=== PATIENT | female | born 1985 | race African-American/Black ===

== ENCOUNTER 2018-01-17 14:12 | Inpatient (IN) | payer MEDICAID ==
[~2018-01-17] VITALS: Ht 170.2 cm; Wt 65.3 kg
[2018-01-17] MEDS ORDERED: SODIUM CHLORIDE 0.9% 1,000 ML IV ONE ×2 (14:52→19:25)
[2018-01-17] MEDS ORDERED: MORPHINE SULFATE 4 MG/ML CPJ (NOT FOR IM USE) IV STA (14:52)
[2018-01-17] MEDS ORDERED: ONDANSETRON HCL 4MG/2ML INJ IV STA (14:52)
[2018-01-17 16:18] LABS: EOSINOPHILS % 0.4 % (0.0-5.0); HEMATOCRIT. 28.3 % (36.0-48.0); LYMPHOCYTES % 25.8 % (20.0-50.0); MEAN CORPUSCULAR HEMOGLOBIN 27.4 pg (28.0-32.0); MEAN CORPUSCULAR VOLUME 86.3 fL (81.0-99.0); MEAN PLATELET VOLUME 12.1 fl (7.4-10.4); NEUTROPHILS % 69.8 % (40.0-76.0); PLATELET 154 x1000/uL (130-400); RED BLOOD CELL COUNT 3.28 mill/uL (4.2-5.4); RED CELL DISTRIBUTION WIDTH 16.1 % (11.6-14.6)
[2018-01-17 16:24] LABS: CHLORIDE 94 mEq/L (98-107)
[2018-01-17 16:29] LABS: HCG SCREEN NEGATIVE
[2018-01-17 16:34] LABS: D-DIMER 1.68 mg/L FEU (<0.50); INR 1.2; PROTHROMBIN TIME 12.5 sec (9.1-11.1)
[2018-01-17] MEDS ORDERED: SODIUM BICARBONATE 8.4% 1 MEQ/ML 50ML SYR IV ONE (16:45)
[2018-01-17] MEDS ORDERED: ALBUTEROL (0.083%) 2.5MG/3ML NEB HHN ONE (16:45)
[2018-01-17] MEDS ORDERED: SODIUM POLYSTYRENE SULFONATE 15 G/60 ML BOT PO ONE (16:45)
[2018-01-17] MEDS ORDERED: DEXTROSE 50% WATER 50ML SYRINGE IV ONE (16:45)
[2018-01-17] MEDS ORDERED: INSULIN REGULAR (HUMULIN R) 300UNITS/3ML IV ONE (16:45)
[2018-01-17] MEDS ORDERED: CLONIDINE 0.1MG TABLET PO PRN (18:30)
[2018-01-17] MEDS ORDERED: MORPHINE SULFATE 4 MG/ML CPJ (NOT FOR IM USE) IV PRN (18:30)
[2018-01-17] MEDS ORDERED: IPRATROPIUM/ALBUTEROL 0.5-3(2.5)MG/3ML NEB HHN PRN (18:30)
[2018-01-17] MEDS ORDERED: LEVOFLOXACIN 750MG PREMIX 150 ML IV ONE (19:30)
[2018-01-17] MEDS ORDERED: METRONIDAZOLE 500 MG PREMIX 100 ML IV ONE (19:30)
[2018-01-17 20:47] LABS: HEPATITIS B SURFACE ANTIGEN NEGATIVE
[2018-01-17 21:16] LABS: HEPATITIS A AB IGM NEGATIVE (NEGATIVE)
[2018-01-17 22:45] VITALS: BP 132/94
[2018-01-17] MEDS ORDERED: EPOETIN ALFA 10000UNITS/ML VIAL SUBCUT NR (23:30)
[2018-01-18 04:00] VITALS: BP_SYST 124; BP_SYST 128; BP_SYST 146; BP_DIAS 50; BP_DIAS 66; BP_DIAS 88
[2018-01-18] MEDS: FOLIC ACID/VITAMIN B COMP W-C TABLET PO SCH (07:46)
[2018-01-18 08:00] VITALS: BP 105/79
[2018-01-18] MEDS ORDERED: BACITRACIN 15GM TUBE TOP ONE (09:36)
[2018-01-18] MEDS ORDERED: THROMBIN (BOVINE) 5000 UNITS/VIAL TOP ONE (09:36)
[2018-01-18] MEDS ORDERED: HEPARIN SODIUM 1,000 UNIT/1ML VIAL IV ONE (09:36)
[2018-01-18] MEDS ORDERED: GELATIN SPONGE,ABSORBABLE 12-7MM SPONGE ONE (09:36)
[2018-01-18] MEDS ORDERED: LIDOCAINE HCL/PF 1% 10 MG/ML 5ML VIAL ONE (09:37)
[2018-01-18] MEDS ORDERED: SODIUM CHLORIDE 0.9% 1,000 ML ONE (09:37)
[2018-01-18] MEDS ORDERED: BUPIVACAINE HCL/PF 0.5% (5MG/ML) 10ML ONE (09:37)
[2018-01-18] MEDS ORDERED: SODIUM CHLORIDE 0.9% 250 ML IV ONE (09:37)
[2018-01-18] MEDS ORDERED: BACITRACIN 50,000 UNITS/VIAL ONE (09:37)
[2018-01-18] MEDS ORDERED: NORMAL SALINE 0.9% 10 ML SYR ONE (09:37)
[2018-01-18 09:41] LABS: BASOPHILS % 0.5 % (0.0-2.0); EOSINOPHILS % 0.1 % (0.0-5.0); HEMATOCRIT. 23.9 % (36.0-48.0); HEMOGLOBIN. 7.6 g/dL (12.0-16.0); LYMPHOCYTES % 23.9 % (20.0-50.0); MEAN CORPUSCULAR HEMOGLOBIN 27.5 pg (28.0-32.0); MEAN CORPUSCULAR VOLUME 86.6 fL (81.0-99.0); MEAN PLATELET VOLUME 12.1 fl (7.4-10.4); NEUTROPHILS % 70.5 % (40.0-76.0); RED BLOOD CELL COUNT 2.76 mill/uL (4.2-5.4); RED CELL DISTRIBUTION WIDTH 15.9 % (11.6-14.6)
[2018-01-18 09:50] LABS: PLATELET 110 x1000/uL (130-400)
[2018-01-18] MEDS ORDERED: HYDROMORPHONE HCL/PF 2MG/ML CPJ IM PRN (11:30)
[2018-01-18] MEDS: HYDROMORPHONE HCL/PF 2MG/ML CPJ IV PRN (12:33)
[2018-01-18] MEDS: ONDANSETRON HCL 4MG/2ML INJ IV PRN (13:25)
[2018-01-18] MEDS ORDERED: NITROGLYCERIN OINT 1GM/INCH UDPKT TD SCH (14:00)
[2018-01-18] MEDS ORDERED: GENTAMICIN 120MG PREMIX 100 ML IV NR (15:00)
[2018-01-18 16:00] VITALS: BP 108/78
[2018-01-18 17:19] LABS: CREATINE KINASE MB FRACTION 1.1 ng/mL (0.5-3.6)
[2018-01-18] MEDS ORDERED: INFLUENZA VIRUS VACCINE(AFLURIA) 0.5ML SYR IM ONE (17:45)
[2018-01-18 20:00] VITALS: BP 119/89
[2018-01-18] MEDS: CARVEDILOL 3.125 MG TABLET PO SCH (21:00)
[2018-01-18] MEDS ORDERED: METOPROLOL TARTRATE 25MG TABLET PO SCH (21:00)
[2018-01-18] MEDS ORDERED: EPOETIN ALFA 4000UNITS/ML VIAL SUBCUT NR (21:00)
[2018-01-19] VITALS (18 sets, daily range): BP systolic 91–141; BP diastolic 43–86
[2018-01-19] MEDS: ONDANSETRON HCL 4MG/2ML INJ IV PRN ×3 (01:02→15:22)
[2018-01-19 02:10] LABS: CREATINE KINASE 129 IU/L (26-192); CREATINE KINASE MB FRACTION < 1.0 ng/mL (0.5-3.6)
[2018-01-19] MEDS: HYDROMORPHONE HCL/PF 2MG/ML CPJ IV PRN ×4 (02:32→20:49)
[2018-01-19 07:51] LABS: CHLORIDE 94 mEq/L (98-107)
[2018-01-19 07:52] LABS: BASOPHILS % 0.2 % (0.0-2.0); HEMATOCRIT. 22.9 % (36.0-48.0); HEMOGLOBIN. 7.4 g/dL (12.0-16.0); LYMPHOCYTES % 14.4 % (20.0-50.0); MEAN CORPUSCULAR HEMOGLOBIN 27.5 pg (28.0-32.0); MEAN CORPUSCULAR VOLUME 85.7 fL (81.0-99.0); MEAN PLATELET VOLUME 11.9 fl (7.4-10.4); MONOCYTES % 6.1 % (2.0-8.0); NEUTROPHILS % 79.3 % (40.0-76.0); PLATELET 107 x1000/uL (130-400); RED BLOOD CELL COUNT 2.67 mill/uL (4.2-5.4); RED CELL DISTRIBUTION WIDTH 16.2 % (11.6-14.6)
[2018-01-19 08:04] LABS: CREATINE KINASE 134 IU/L (26-192)
[2018-01-19 08:06] LABS: CREATINE KINASE MB FRACTION < 1.0 ng/mL (0.5-3.6)
[2018-01-19] MEDS: FOLIC ACID/VITAMIN B COMP W-C TABLET PO SCH ×2 (09:09→09:22)
[2018-01-19] MEDS: CARVEDILOL 3.125 MG TABLET PO SCH ×2 (09:23→20:52)
[2018-01-19] MEDS ORDERED: DEXTROSE 50% WATER 50ML SYRINGE IV NR (10:00)
[2018-01-19] MEDS ORDERED: INSULIN REGULAR (HUMULIN R) UD 100 UNITS/ML SYR IV NR (10:00)
[2018-01-19] MEDS ORDERED: SODIUM BICARBONATE 8.4% 1 MEQ/ML 50ML SYR IV NR (10:00)
[2018-01-19] MEDS ORDERED: SODIUM POLYSTYRENE SULFONATE 15 G/60 ML BOT PO NR (10:00)
[2018-01-19] MEDS ORDERED: CALCIUM GLUCONATE 1,000 MG in DEXTROSE 5% WATER 50 ML IV NR (10:00)
[2018-01-19] MEDS ORDERED: ALBUTEROL (0.083%) 2.5MG/3ML NEB HHN NR (10:00)
[2018-01-19] MEDS ORDERED: BISACODYL 5MG TABLET PO PRN (11:45)
[2018-01-19] MEDS: DOCUSATE SODIUM 250MG CAPSULE PO SCH ×2 (12:53→16:15)
[2018-01-19] MEDS: BISACODYL 10MG SUPP PR SCH (17:00)
[2018-01-19] MEDS ORDERED: BISACODYL 5MG TABLET PO SCH (17:00)
[2018-01-19 17:23] LABS: HEMATOCRIT 20.4 % (36.0-48.0); HEMOGLOBIN 6.4 g/dL (12.0-16.0)
[2018-01-19] MEDS ORDERED: BISACODYL 10MG SUPP PR PRN (19:00)
[2018-01-19] MEDS: IRON SUCROSE COMPLEX 100 MG/5 ML ML IV SCH (19:10)
[2018-01-19] MEDS: DIPHENHYDRAMINE 50MG/ML VIAL IV PRN (19:18)
[2018-01-19] MEDS ORDERED: EPOETIN ALFA 4000UNITS/ML VIAL SUBCUT SCH (21:00)
[2018-01-20] VITALS (12 sets, daily range): BP systolic 92–135; BP diastolic 55–88
[2018-01-20] MEDS: HYDROMORPHONE HCL/PF 2MG/ML CPJ IV PRN ×3 (00:03→20:12)
[2018-01-20 06:44] LABS: HEMATOCRIT 28.2 % (36.0-48.0); HEMOGLOBIN 9.2 g/dL (12.0-16.0)
[2018-01-20] MEDS: DOCUSATE SODIUM 250MG CAPSULE PO SCH ×3 (09:00→17:00)
[2018-01-20] MEDS: ONDANSETRON HCL 4MG/2ML INJ IV PRN (09:09)
[2018-01-20] MEDS: DIPHENHYDRAMINE 50MG/ML VIAL IV PRN (09:10)
[2018-01-20] MEDS: BISACODYL 10MG SUPP PR SCH ×2 (09:10→17:00)
[2018-01-20] MEDS: CARVEDILOL 6.25 MG TABLET PO SCH ×2 (09:17→20:12)
[2018-01-20] MEDS: IRON SUCROSE COMPLEX 100 MG/5 ML ML IV SCH (09:17)
[2018-01-20 13:00] LABS: CHLORIDE 101 mEq/L (98-107)
[2018-01-20 13:03] LABS: BASOPHILS % 0.3 % (0.0-2.0); EOSINOPHILS % 0.2 % (0.0-5.0); HEMATOCRIT. 32.2 % (36.0-48.0); HEMOGLOBIN. 10.4 g/dL (12.0-16.0); LYMPHOCYTES % 9.7 % (20.0-50.0); MEAN CORPUSCULAR HEMOGLOBIN 27.8 pg (28.0-32.0); MEAN CORPUSCULAR VOLUME 86.2 fL (81.0-99.0); MEAN PLATELET VOLUME 11.3 fl (7.4-10.4); MONOCYTES % 3.6 % (2.0-8.0); NEUTROPHILS % 86.2 % (40.0-76.0); PLATELET 95 x1000/uL (130-400); RED BLOOD CELL COUNT 3.74 mill/uL (4.2-5.4); RED CELL DISTRIBUTION WIDTH 15.8 % (11.6-14.6)
[2018-01-21] VITALS (13 sets, daily range): BP systolic 97–143; BP diastolic 49–91
[2018-01-21] MEDS: HYDROMORPHONE HCL/PF 2MG/ML CPJ IV PRN ×3 (01:56→20:18)
[2018-01-21] MEDS: IRON SUCROSE COMPLEX 100 MG/5 ML ML IV SCH (08:07)
[2018-01-21] MEDS: BENAZEPRIL 5MG TABLET PO SCH (08:43)
[2018-01-21] MEDS: CARVEDILOL 6.25 MG TABLET PO SCH ×2 (08:43→21:25)
[2018-01-21] MEDS: DOCUSATE SODIUM 250MG CAPSULE PO SCH ×3 (08:44→18:42)
[2018-01-21] MEDS: BISACODYL 10MG SUPP PR SCH ×2 (08:44→18:42)
[2018-01-21] MEDS: FOLIC ACID/VITAMIN B COMP W-C TABLET PO SCH (08:45)
[2018-01-21] MEDS ORDERED: GELATIN SPONGE,ABSORBABLE 12-7MM SPONGE ONE (10:50)
[2018-01-21] MEDS ORDERED: BACITRACIN 15GM TUBE TOP ONE (10:51)
[2018-01-21] MEDS ORDERED: THROMBIN (BOVINE) 5000 UNITS/VIAL TOP ONE (10:51)
[2018-01-21] MEDS ORDERED: BUPIVACAINE HCL/PF 0.5% (5MG/ML) 10ML ONE (10:52)
[2018-01-21] MEDS ORDERED: SODIUM CHLORIDE 0.9% 10ML VIAL ONE (10:52)
[2018-01-21] MEDS ORDERED: HEPARIN SODIUM 1,000 UNIT/1ML VIAL IV ONE (10:52)
[2018-01-21] MEDS ORDERED: LIDOCAINE HCL/PF 1% 10 MG/ML 5ML VIAL ONE (10:53)
[2018-01-21] MEDS ORDERED: BACITRACIN 50,000 UNITS/VIAL ONE (10:54)
[2018-01-21 13:06] LABS: HIV SCREEN 4G Non Reactive (Non Reactive)
[2018-01-21] MEDS ORDERED: EPHEDRINE SULFATE 50MG/ML VIAL ONE (13:09)
[2018-01-21] MEDS ORDERED: PHENYLEPHRINE HCL 10 MG/ML 1ML (IV VIAL) IV ONE (13:10)
[2018-01-21] MEDS ORDERED: EPINEPHRINE 1:1000 1 MG/ML AMP ONE (13:10)
[2018-01-21] MEDS ORDERED: FENTANYL CITRATE/PF 50MCG/ML 2ML VIAL ONE (13:13)
[2018-01-21] MEDS ORDERED: SUCCINYLCHOLINE CHLORIDE 200MG/10ML IV ONE (13:13)
[2018-01-21] MEDS ORDERED: PROPOFOL 10MG/ML 100ML 100 ML IV ONE (13:14)
[2018-01-21] MEDS ORDERED: MIDAZOLAM HCL 2 MG/2 ML VIAL ONE (13:15)
[2018-01-21] MEDS ORDERED: HEPARIN 5000 UNITS/ML VIAL ONE (14:04)
[2018-01-21] MEDS ORDERED: CLINDAMYCIN 600MG PREMIX 50 ML IV SCH (14:05)
[2018-01-21] MEDS ORDERED: CLINDAMYCIN 600 MG in DEXTROSE 5% WATER 50 ML IV SCH (14:09)
[2018-01-21] MEDS ORDERED: FENTANYL CITRATE/PF 50MCG/ML 2ML VIAL IV PRN (14:45)
[2018-01-21] MEDS ORDERED: ONDANSETRON HCL 4MG/2ML INJ IV PRN (14:45)
[2018-01-21] MEDS ORDERED: MEPERIDINE HCL/PF 25MG/ML CPJ IV PRN (14:45)
[2018-01-21] MEDS ORDERED: HYDROMORPHONE HCL/PF 2MG/ML CPJ IV PRN (14:45)
[2018-01-21] MEDS ORDERED: HEPARIN 1000 UNITS/ML 10ML ONE (15:21)
[2018-01-21] MEDS ORDERED: EPOETIN ALFA 4000UNITS/ML VIAL SUBCUT SCH (21:00)
[2018-01-21] MEDS ORDERED: EPOETIN ALFA 10000UNITS/ML VIAL SUBCUT ONE (21:00)
[2018-01-22] VITALS (17 sets, daily range): BP systolic 89–139; BP diastolic 56–109
[2018-01-22] MEDS: HYDROMORPHONE HCL/PF 2MG/ML CPJ IV PRN ×4 (02:39→20:27)
[2018-01-22 07:42] LABS: BASOPHILS % 0.4 % (0.0-2.0); EOSINOPHILS % 0.9 % (0.0-5.0); HEMATOCRIT. 31.6 % (36.0-48.0); HEMOGLOBIN. 10.1 g/dL (12.0-16.0); LYMPHOCYTES % 24.4 % (20.0-50.0); MEAN CORPUSCULAR HEMOGLOBIN 27.5 pg (28.0-32.0); MEAN CORPUSCULAR VOLUME 86.1 fL (81.0-99.0); MEAN PLATELET VOLUME 11.7 fl (7.4-10.4); MONOCYTES % 6.6 % (2.0-8.0); NEUTROPHILS % 67.7 % (40.0-76.0); PLATELET 81 x1000/uL (130-400); RED BLOOD CELL COUNT 3.67 mill/uL (4.2-5.4)
[2018-01-22] MEDS ORDERED: IBUPROFEN 200MG TABLET PO PRN (08:30)
[2018-01-22] MEDS: DOCUSATE SODIUM 250MG CAPSULE PO SCH ×3 (08:31→16:25)
[2018-01-22] MEDS: BISACODYL 10MG SUPP PR SCH ×2 (08:37→17:09)
[2018-01-22] MEDS: CARVEDILOL 6.25 MG TABLET PO SCH ×2 (08:37→21:00)
[2018-01-22] MEDS: IRON SUCROSE COMPLEX 100 MG/5 ML ML IV SCH (08:37)
[2018-01-22] MEDS: BENAZEPRIL 5MG TABLET PO SCH (08:38)
[2018-01-22] MEDS: FOLIC ACID/VITAMIN B COMP W-C TABLET PO SCH (08:38)
[2018-01-22] MEDS ORDERED: HYDROCODONE/ACETAMINOPHEN 10/325MG TABLET PO PRN (11:15)
[2018-01-23] VITALS (8 sets, daily range): BP systolic 109–153; BP diastolic 55–112
[2018-01-23] MEDS: HYDROMORPHONE HCL/PF 2MG/ML CPJ IV PRN ×2 (02:46→10:16)
[2018-01-23 06:59] LABS: BASOPHILS % 0.3 % (0.0-2.0); EOSINOPHILS % 1.2 % (0.0-5.0); HEMATOCRIT. 28.8 % (36.0-48.0); HEMOGLOBIN. 9.5 g/dL (12.0-16.0); LYMPHOCYTES % 25.5 % (20.0-50.0); MEAN CORPUSCULAR HEMOGLOBIN 28.3 pg (28.0-32.0); MEAN CORPUSCULAR VOLUME 85.9 fL (81.0-99.0); MEAN PLATELET VOLUME 10.3 fl (7.4-10.4); MONOCYTES % 5.9 % (2.0-8.0); NEUTROPHILS % 67.1 % (40.0-76.0); PLATELET 68 x1000/uL (130-400); RED BLOOD CELL COUNT 3.35 mill/uL (4.2-5.4); RED CELL DISTRIBUTION WIDTH 16.6 % (11.6-14.6)
[2018-01-23] MEDS: BENAZEPRIL 5MG TABLET PO SCH (09:00)
[2018-01-23] MEDS ORDERED: CARVEDILOL 12.5MG TABLET PO SCH (09:00)
[2018-01-23] MEDS: FOLIC ACID/VITAMIN B COMP W-C TABLET PO SCH (10:13)
[2018-01-23] MEDS: BISACODYL 10MG SUPP PR SCH ×2 (10:13→16:18)
[2018-01-23] MEDS: DOCUSATE SODIUM 250MG CAPSULE PO SCH ×3 (10:14→16:18)
[2018-01-23] MEDS: IRON SUCROSE COMPLEX 100 MG/5 ML ML IV SCH (10:14)
[2018-01-23] MEDS ORDERED: EPOETIN ALFA 4000UNITS/ML VIAL SUBCUT SCH (21:00)
== END 2018-01-23 17:00 | disposition left against medical advice (07) | DRG 182 ==
LOC: ER 14:12 → 6WST 18:42 → EDBEDREQ 18:45 → EDBEDREQTM 18:45 → ENRESERV 21:27 → 3WST 01-19 10:10
PROVIDERS: ADMIT Internal Medicine; ATTEND Internal Medicine
PROC: 5A1D70Z Performance of Urinary Filtration, Intermittent, Less than 6 Hours Per Day (ICD-10-PCS; principal; 2018-01-17)
PROC: 30233N1 Transfusion of Nonautologous Red Blood Cells into Peripheral Vein, Percutaneous Approach (ICD-10-PCS; 2018-01-19)
PROC: 5A1D70Z Performance of Urinary Filtration, Intermittent, Less than 6 Hours Per Day (ICD-10-PCS; 2018-01-19)
PROC: 03160KD Bypass Left Axillary Artery to Upper Arm Vein with Nonautologous Tissue Substitute, Open Approach (ICD-10-PCS; 2018-01-21)
PROC: 5A1D70Z Performance of Urinary Filtration, Intermittent, Less than 6 Hours Per Day (ICD-10-PCS; 2018-01-21)
PROC: 5A1D70Z Performance of Urinary Filtration, Intermittent, Less than 6 Hours Per Day (ICD-10-PCS; 2018-01-23)
DX: T82.590A Other mechanical complication of surgically created arteriovenous fistula, initial encounter (principal); I13.2 Hypertensive heart and chronic kidney disease with heart failure and with stage 5 chronic kidney disease, or end stage renal disease; D69.6 Thrombocytopenia, unspecified; E44.0 Moderate protein-calorie malnutrition; E87.8 Other disorders of electrolyte and fluid balance, not elsewhere classified; I95.9 Hypotension, unspecified; E87.5 Hyperkalemia; E87.1 Hypo-osmolality and hyponatremia; E86.0 Dehydration; I27.20 Pulmonary hypertension, unspecified; N18.6 End stage renal disease; R18.8 Other ascites; I07.1 Rheumatic tricuspid insufficiency; F14.90 Cocaine use, unspecified, uncomplicated; R16.0 Hepatomegaly, not elsewhere classified; K81.9 Cholecystitis, unspecified; I42.9 Cardiomyopathy, unspecified; I50.23 Acute on chronic systolic (congestive) heart failure; Y84.1 Kidney dialysis as the cause of abnormal reaction of the patient, or of later complication, without mention of misadventure at the time of the procedure; D63.8 Anemia in other chronic diseases classified elsewhere; F10.21 Alcohol dependence, in remission; J44.9 Chronic obstructive pulmonary disease, unspecified; K59.00 Constipation, unspecified; I31.3 Pericardial effusion (noninflammatory); Z53.21 Procedure and treatment not carried out due to patient leaving prior to being seen by health care provider; Z88.0 Allergy status to penicillin; Z99.2 Dependence on renal dialysis; Z68.22 Body mass index [BMI] 22.0-22.9, adult; Z91.19 Patient's noncompliance with other medical treatment and regimen; Y92.89 Other specified places as the place of occurrence of the external cause
CPT/HCPCS: 36415; 71045; 74176; 76705; 78227; 78580; 80048; 80076; 80170; 82248; 82270; 82550; 82553; 82962; 83605; 83880; 84132; 84484; 84703; 85014; 85018; 85379; 86705; 86706; 86709; 86803; 86850; 86900; 86920; 87340; 87389; 90686; 93005; 93306; 93970; 94640; 94644; 96374; 96375; 99285; A4216; A9537; C1768; J0330; J0610; J0885; J1170; J1200; J1580; J1644; J1815; J1956; J2250; J2270; J2370; J2405; J2704; J3010; J3490; J7030; J7050; J7060; J7611; J7620; P9016; A4315

== ENCOUNTER 2018-02-12 12:54 | Inpatient (IN) | payer MEDICAID ==
[~2018-02-12] VITALS: Ht 167.6 cm; Wt 68.0 kg
[2018-02-12] MEDS: ASPIRIN 325MG TABLET PO ONE ×2 (13:30→14:21)
[2018-02-12 15:16] LABS: BASOPHILS % 0.4 % (0.0-2.0); CHLORIDE 99 mEq/L (98-107); EOSINOPHILS % 0.4 % (0.0-5.0); HEMATOCRIT. 23.4 % (36.0-48.0); HEMOGLOBIN. 7.5 g/dL (12.0-16.0); LYMPHOCYTES % 16.5 % (20.0-50.0); MEAN CORPUSCULAR HEMOGLOBIN 26.9 pg (28.0-32.0); MEAN PLATELET VOLUME 10.9 fl (7.4-10.4); NEUTROPHILS % 78.7 % (40.0-76.0); PLATELET 106 x1000/uL (130-400); RED BLOOD CELL COUNT 2.79 mill/uL (4.2-5.4); RED CELL DISTRIBUTION WIDTH 17.4 % (11.6-14.6)
[2018-02-12] MEDS ORDERED: HEPARIN 5000 UNITS/ML VIAL IV PRN ×2 (15:45)
[2018-02-12] MEDS ORDERED: HEPARIN 5000 UNITS/ML VIAL IV SCH (15:45)
[2018-02-12] MEDS ORDERED: HEPARIN 25,000 UNITS PREMIX 500 ML IV PRN (15:45)
[2018-02-12 17:30] LABS: HCG SCREEN NEGATIVE
[2018-02-12] MEDS: ONDANSETRON HCL 4MG/2ML INJ IV ONE (18:00)
[2018-02-12 18:02] LABS: INR 1.2; PARTIAL THROMBOPLASTIN TIME 34.1 sec (23.4-31.0); PROTHROMBIN TIME 12.4 sec (9.1-11.1)
[2018-02-12] MEDS ORDERED: HEPARIN BOLUS PRN aPTT <30 IV (18:30)
[2018-02-12] MEDS ORDERED: HEPARIN BOLUS PRN aPTT 30-44 IV (18:30)
[2018-02-12] MEDS ORDERED: HEPARIN 60 UNITS/KG BOLUS IV NR ×2 (18:36→19:00)
[2018-02-12 19:24] LABS: CLARITY URINE CLOUDY (CLEAR); COLOR URINE YELLOW (YELLOW); KETONES URINE NEGATIVE (NEGATIVE); LEUKOCYTE ESTERASE URINE 2+ (NEGATIVE); NITRITE URINE NEGATIVE (NEGATIVE); OCCULT BLOOD URINE 3+ (NEGATIVE); PH URINE >=9.0 (4.5-8.0); PROTEIN URINE 3+ (NEGATIVE); SPECIFIC GRAVITY URINE 1.012 (1.005-1.030)
[2018-02-12 23:00] VITALS: BP 115/75
[2018-02-13] VITALS (8 sets, daily range): BP systolic 95–115; BP diastolic 53–75
[2018-02-13] MEDS ORDERED: LEVOFLOXACIN 500MG PREMIX 100 ML IV SCH ×2 (00:15→01:00)
[2018-02-13] MEDS ORDERED: HYDROCODONE/ACETAMINOPHEN 5/325MG TABLET PO PRN (00:15)
[2018-02-13] MEDS ORDERED: ACETAMINOPHEN 325MG TABLET PO PRN (00:15)
[2018-02-13] MEDS: HYDROMORPHONE HCL/PF 2MG/ML CPJ IV PRN ×3 (01:18→22:21)
[2018-02-13] MEDS: ONDANSETRON HCL 4MG/2ML INJ IV PRN ×2 (01:19→10:25)
[2018-02-13] MEDS: HEPARIN 25,000 UNITS PREMIX 500 ML IV SCH ×2 (02:28→21:49)
[2018-02-13] MEDS: AMLODIPINE 10MG TABLET PO SCH (09:00)
[2018-02-13 09:04] LABS: CREATINE KINASE 43 IU/L (26-192)
[2018-02-13] MEDS: ASPIRIN 81MG EC TABLET PO SCH (09:04)
[2018-02-13 09:05] LABS: CREATINE KINASE MB FRACTION < 1.0 ng/mL (0.5-3.6)
[2018-02-13] MEDS ORDERED: IRON SUCROSE COMPLEX 100 MG/5 ML ML IV NR (13:15)
[2018-02-13 16:49] LABS: CREATINE KINASE 42 IU/L (26-192)
[2018-02-13 16:50] LABS: CREATINE KINASE MB FRACTION < 1.0 ng/mL (0.5-3.6)
[2018-02-13] MEDS ORDERED: EPOETIN ALFA 4000UNITS/ML VIAL SUBCUT SCH (21:00)
[2018-02-14 03:21] LABS: BASOPHILS % 0.3 % (0.0-2.0); EOSINOPHILS % 0.5 % (0.0-5.0); MEAN CORPUSCULAR HEMOGLOBIN 26.9 pg (28.0-32.0); MEAN CORPUSCULAR VOLUME 82.8 fL (81.0-99.0); MEAN PLATELET VOLUME 11.1 fl (7.4-10.4); MONOCYTES % 4.5 % (2.0-8.0); NEUTROPHILS % 77.7 % (40.0-76.0); PLATELET 95 x1000/uL (130-400); RED BLOOD CELL COUNT 2.51 mill/uL (4.2-5.4); RED CELL DISTRIBUTION WIDTH 17.6 % (11.6-14.6)
[2018-02-14 03:35] LABS: HEMOGLOBIN. 6.8 g/dL (12.0-16.0)
[2018-02-14 03:36] LABS: HEMATOCRIT. 20.8 % (36.0-48.0)
[2018-02-14 03:45] LABS: CHLORIDE 101 mEq/L (98-107)
[2018-02-14 04:29] VITALS: BP 103/56
[2018-02-14 08:00] VITALS: BP 112/73
[2018-02-14] MEDS: HYDROMORPHONE HCL/PF 2MG/ML CPJ IV PRN ×3 (08:33→22:36)
[2018-02-14] MEDS: ASPIRIN 81MG EC TABLET PO SCH (09:58)
[2018-02-14] MEDS: AMLODIPINE 10MG TABLET PO SCH (09:58)
[2018-02-14] MEDS: IRON SUCROSE COMPLEX 100 MG/5 ML ML IV SCH (11:07)
[2018-02-14 12:00] VITALS: BP 114/74
[2018-02-14 16:00] VITALS: BP 120/78
[2018-02-14 17:26] LABS: TOTAL IRON BINDING CAPACITY 218 ug/dL (250-450)
[2018-02-14 17:52] LABS: VITAMIN B12 SERUM 1158 pg/mL (211-911)
[2018-02-14] MEDS: LEVOFLOXACIN 250MG PREMIX 50 ML IV SCH (19:12)
[2018-02-14 20:00] VITALS: BP 112/80
[2018-02-15] VITALS (7 sets, daily range): BP systolic 103–115; BP diastolic 65–81
[2018-02-15] MEDS: HYDROMORPHONE HCL/PF 2MG/ML CPJ IV PRN ×2 (04:57→20:46)
[2018-02-15 06:01] LABS: BASOPHILS % 0.4 % (0.0-2.0); EOSINOPHILS % 0.2 % (0.0-5.0); HEMATOCRIT. 21.5 % (36.0-48.0); LYMPHOCYTES % 16.4 % (20.0-50.0); MEAN CORPUSCULAR HEMOGLOBIN 27.1 pg (28.0-32.0); MEAN CORPUSCULAR VOLUME 83.1 fL (81.0-99.0); MONOCYTES % 4.1 % (2.0-8.0); NEUTROPHILS % 78.9 % (40.0-76.0); PLATELET 116 x1000/uL (130-400); RED BLOOD CELL COUNT 2.58 mill/uL (4.2-5.4); RED CELL DISTRIBUTION WIDTH 17.9 % (11.6-14.6)
[2018-02-15] MEDS: ONDANSETRON HCL 4MG/2ML INJ IV PRN (09:01)
[2018-02-15 13:07] LABS: *AMPHETAMINES SCREEN URINE NEGATIVE (NEGATIVE); *BARBITURATES SCREEN URINE NEGATIVE (NEGATIVE); *BENZODIAZEPINES SCREEN URINE NEGATIVE (NEGATIVE); *COCAINE SCREEN URINE NEGATIVE (NEGATIVE); METHADONE URINE SCREEN NEGATIVE (NEGATIVE); OPIATES URINE SCREEN NEGATIVE (NEGATIVE)
[2018-02-15 13:08] LABS: CANNABINOID URINE SCREEN NEGATIVE (NEGATIVE); PHENCYCLIDINE URINE SCREEN NEGATIVE (NEGATIVE)
[2018-02-15] MEDS: IRON SUCROSE COMPLEX 100 MG/5 ML ML IV SCH (14:46)
[2018-02-15] MEDS: CARVEDILOL 6.25 MG TABLET PO SCH ×2 (14:46→20:44)
[2018-02-15] MEDS: PANTOPRAZOLE SODIUM 40 MG/VIAL IV SCH (14:46)
[2018-02-15] MEDS: LOSARTAN POTASSIUM 25 MG TABLET PO SCH (14:46)
[2018-02-15] MEDS: ASPIRIN 81MG EC TABLET PO SCH (14:46)
[2018-02-15] MEDS ORDERED: VANCOMYCIN 1 G PREMIX 200 ML IV SCH (18:00)
[2018-02-15] MEDS ORDERED: VANCOMYCIN 1 G PREMIX 200 ML IV NR (20:00)
[2018-02-16] VITALS: BP 98/63
[2018-02-16] MEDS: HYDROMORPHONE HCL/PF 2MG/ML CPJ IV PRN ×4 (02:59→21:13)
[2018-02-16 04:00] VITALS: BP 107/63
[2018-02-16] MEDS ORDERED: LIDOCAINE HCL 1% 20ML VIAL (Pyxis) INJ ONE (07:02)
[2018-02-16 08:00] VITALS: BP 113/66
[2018-02-16] MEDS: LOSARTAN POTASSIUM 25 MG TABLET PO SCH (09:00)
[2018-02-16] MEDS: CARVEDILOL 12.5MG TABLET PO SCH ×2 (09:00→21:00)
[2018-02-16] MEDS: PANTOPRAZOLE SODIUM 40 MG/VIAL IV SCH (09:57)
[2018-02-16] MEDS: IRON SUCROSE COMPLEX 100 MG/5 ML ML IV SCH (09:57)
[2018-02-16] MEDS: ASPIRIN 81MG EC TABLET PO SCH (10:10)
[2018-02-16] MEDS ORDERED: VANCOMYCIN 1500MG in DEXTROSE 5% WATER 250ML IV SCH (11:00)
[2018-02-16 12:00] VITALS: BP 100/53
[2018-02-16 16:00] VITALS: BP 97/54
[2018-02-16 20:00] VITALS: BP 103/66
[2018-02-16] MEDS: LEVOFLOXACIN 250MG PREMIX 50 ML IV SCH (21:12)
[2018-02-17] VITALS: BP 101/68
[2018-02-17] MEDS: HYDROMORPHONE HCL/PF 2MG/ML CPJ IV PRN ×2 (01:11→05:59)
[2018-02-17 04:00] VITALS: BP 108/71
[2018-02-17 07:42] LABS: BASOPHILS % 0.3 % (0.0-2.0); EOSINOPHILS % 0.8 % (0.0-5.0); HEMATOCRIT. 26.7 % (36.0-48.0); HEMOGLOBIN. 8.7 g/dL (12.0-16.0); LYMPHOCYTES % 21.3 % (20.0-50.0); MEAN CORPUSCULAR HEMOGLOBIN 27.3 pg (28.0-32.0); MEAN CORPUSCULAR VOLUME 84.1 fL (81.0-99.0); MEAN PLATELET VOLUME 11.1 fl (7.4-10.4); MONOCYTES % 4.1 % (2.0-8.0); NEUTROPHILS % 73.5 % (40.0-76.0); PLATELET 116 x1000/uL (130-400); RED BLOOD CELL COUNT 3.18 mill/uL (4.2-5.4); RED CELL DISTRIBUTION WIDTH 18.3 % (11.6-14.6)
[2018-02-17 08:00] VITALS: BP 107/71
[2018-02-17] MEDS: LOSARTAN POTASSIUM 25 MG TABLET PO SCH (09:00)
[2018-02-17] MEDS: CARVEDILOL 12.5MG TABLET PO SCH (09:00)
[2018-02-17] MEDS: ONDANSETRON HCL 4MG/2ML INJ IV PRN (09:03)
[2018-02-17] MEDS: PANTOPRAZOLE SODIUM 40 MG/VIAL IV SCH (09:03)
[2018-02-17] MEDS: ASPIRIN 81MG EC TABLET PO SCH (09:04)
[2018-02-17 10:00] VITALS: BP 107/71
== END 2018-02-17 15:00 | disposition home or self-care (01) | DRG 721 ==
LOC: ER 12:54 → EDBEDREQ 15:41 → EDBEDREQTM 18:15 → 7WST 18:28 → EDBEDREQ 18:29 → ENRESERV 20:23
PROVIDERS: ADMIT Hospitalist; ATTEND Hospitalist
PROC: 5A1D70Z Performance of Urinary Filtration, Intermittent, Less than 6 Hours Per Day (ICD-10-PCS; 2018-02-13)
PROC: 30233N1 Transfusion of Nonautologous Red Blood Cells into Peripheral Vein, Percutaneous Approach (ICD-10-PCS; 2018-02-15)
PROC: 5A1D70Z Performance of Urinary Filtration, Intermittent, Less than 6 Hours Per Day (ICD-10-PCS; 2018-02-15)
PROC: 0JPT0XZ Removal of Tunneled Vascular Access Device from Trunk Subcutaneous Tissue and Fascia, Open Approach (ICD-10-PCS; principal; 2018-02-16)
PROC: 02PYX3Z Removal of Infusion Device from Great Vessel, External Approach (ICD-10-PCS; 2018-02-16)
PROC: 5A1D70Z Performance of Urinary Filtration, Intermittent, Less than 6 Hours Per Day (ICD-10-PCS; 2018-02-17)
DX: T80.211A Bloodstream infection due to central venous catheter, initial encounter (principal); A41.81 Sepsis due to Enterococcus; I13.2 Hypertensive heart and chronic kidney disease with heart failure and with stage 5 chronic kidney disease, or end stage renal disease; E43 Unspecified severe protein-calorie malnutrition; D69.6 Thrombocytopenia, unspecified; I27.20 Pulmonary hypertension, unspecified; I07.1 Rheumatic tricuspid insufficiency; I42.0 Dilated cardiomyopathy; N18.6 End stage renal disease; I50.33 Acute on chronic diastolic (congestive) heart failure; I48.92 Unspecified atrial flutter; N39.0 Urinary tract infection, site not specified; D63.1 Anemia in chronic kidney disease; G89.29 Other chronic pain; Z82.49 Family history of ischemic heart disease and other diseases of the circulatory system; Z86.74 Personal history of sudden cardiac arrest; Z87.891 Personal history of nicotine dependence; Z91.19 Patient's noncompliance with other medical treatment and regimen; Z99.2 Dependence on renal dialysis; Z88.0 Allergy status to penicillin; Z87.01 Personal history of pneumonia (recurrent); Z68.24 Body mass index [BMI] 24.0-24.9, adult
CPT/HCPCS: 36415; 36589; 71045; 80048; 80202; 80305; 81025; 82550; 82553; 82607; 83540; 83550; 83880; 84484; 84703; 85044; 86850; 86900; 86920; 87070; 87077; 87186; 93005; 99291; C9113; J0885; J1170; J1644; J1956; J2405; J3370; J3490; J7040; J7050; J7060; P9016

== ENCOUNTER 2018-02-19 11:26 | Inpatient (IN) | payer MEDICAID ==
[~2018-02-19] VITALS: Ht 167.6 cm; Wt 58.1 kg
[2018-02-19 12:38] LABS: BG BASE EXCESS -1.3 mmol/L (-2.0-2.0); BG CARBOXYHEMOGLOBIN 1.4 % (0.5-1.5); BG DEOXYHEMOGLOBIN 3.3 % (0.0-5.0); BG FRACTION INSPIRED OXYGEN 21; BG HCO3 ACT 22.7 mmol/L (22.0-26.0); BG METHEMOGLOBIN 0.4 % (0.0-1.5); BG OXYGEN SATURATION 96.6 % (92.0-98.5); BG OXYHEMOGLOBIN 94.9 % (94.0-97.0); BG PCO2 35.2 mmHg (35.0-45.0); BG PH 7.428 (7.350-7.450); BG PO2 92.8 mmHg (75.0-100.0); BG SAMPLE SITE RIGHT BRACHIAL; BG TOTAL HEMOGLOBIN 8.6 g/dL (12.0-18.0); BG VENT MODE ROOM AIR
[2018-02-19 13:27] LABS: CHLORIDE 104 mEq/L (98-107)
[2018-02-19 13:29] LABS: INR 1.1; PARTIAL THROMBOPLASTIN TIME 28.8 sec (23.4-31.0); PROTHROMBIN TIME 11.3 sec (9.1-11.1)
[2018-02-19 13:32] LABS: BASOPHILS % 0.7 % (0.0-2.0); EOSINOPHILS % 0.5 % (0.0-5.0); HEMATOCRIT. 28.4 % (36.0-48.0); LYMPHOCYTES % 23.8 % (20.0-50.0); MEAN CORPUSCULAR HEMOGLOBIN 27.2 pg (28.0-32.0); MEAN CORPUSCULAR VOLUME 86.2 fL (81.0-99.0); MEAN PLATELET VOLUME 10.6 fl (7.4-10.4); PLATELET 126 x1000/uL (130-400); RED BLOOD CELL COUNT 3.29 mill/uL (4.2-5.4); RED CELL DISTRIBUTION WIDTH 19.9 % (11.6-14.6)
[2018-02-19 13:33] LABS: PHOSPHORUS 5.9 mg/dL (2.5-4.9)
[2018-02-19 13:38] LABS: HCG SCREEN NEGATIVE
[2018-02-19] MEDS ORDERED: ACETAMINOPHEN 325MG TABLET PO PRN (15:45)
[2018-02-19] MEDS ORDERED: CLONIDINE 0.1MG TABLET PO PRN (15:45)
[2018-02-19] MEDS ORDERED: HYDROCODONE/ACETAMINOPHEN 5/325MG TABLET PO PRN (16:15)
[2018-02-19 16:40] VITALS: BP 120/88
[2018-02-19] MEDS: SEVELAMER CARBONATE 800 MG TABLET PO SCH (18:13)
[2018-02-19] MEDS: HYDROMORPHONE HCL/PF 2MG/ML CPJ IV PRN (18:14)
[2018-02-19] MEDS: ONDANSETRON HCL 4MG/2ML INJ IV PRN (19:01)
[2018-02-19 19:12] VITALS: BP 120/85
[2018-02-19] MEDS ORDERED: INFLUENZA VIRUS VACCINE(AFLURIA) 0.5ML SYR IM ONE (19:30)
[2018-02-19] MEDS ORDERED: PNEUMOCOCCAL 23-VAL P-SAC VAC 0.5 ML IM ONE (19:30)
[2018-02-19 20:00] VITALS: BP 124/93
[2018-02-20] VITALS (10 sets, daily range): BP systolic 117–138; BP diastolic 62–96
[2018-02-20] MEDS ORDERED: VANCOMYCIN 1 G PREMIX 200 ML IV NR
[2018-02-20] MEDS: HYDROMORPHONE HCL/PF 2MG/ML CPJ IV PRN ×3 (00:24→18:34)
[2018-02-20] MEDS: ONDANSETRON HCL 4MG/2ML INJ IV PRN (01:15)
[2018-02-20] MEDS: IRON SUCROSE COMPLEX 100 MG/5 ML ML IV SCH (06:30)
[2018-02-20] MEDS ORDERED: CLINDAMYCIN 600 MG in DEXTROSE 5% WATER 50 ML IV ONE (06:45)
[2018-02-20 07:05] LABS: BASOPHILS % 0.7 % (0.0-2.0); EOSINOPHILS % 0.8 % (0.0-5.0); HEMATOCRIT. 24.1 % (36.0-48.0); HEMOGLOBIN. 8.1 g/dL (12.0-16.0); LYMPHOCYTES % 25.7 % (20.0-50.0); MEAN CORPUSCULAR HEMOGLOBIN 28.2 pg (28.0-32.0); MEAN CORPUSCULAR VOLUME 83.5 fL (81.0-99.0); MEAN PLATELET VOLUME 10.3 fl (7.4-10.4); MONOCYTES % 5.2 % (2.0-8.0); NEUTROPHILS % 67.6 % (40.0-76.0); PLATELET 120 x1000/uL (130-400); RED BLOOD CELL COUNT 2.88 mill/uL (4.2-5.4); RED CELL DISTRIBUTION WIDTH 19.4 % (11.6-14.6)
[2018-02-20] MEDS: SEVELAMER CARBONATE 800 MG TABLET PO SCH ×3 (07:50→18:21)
[2018-02-20] MEDS ORDERED: LIDOCAINE HCL 1% 20ML VIAL (Pyxis) INJ ONE (07:53)
[2018-02-20] MEDS ORDERED: SODIUM BICARBONATE 4% (2.4MEQ) 5ML VIAL IV ONE (07:53)
[2018-02-20] MEDS: CARVEDILOL 12.5MG TABLET PO SCH ×2 (10:16→22:26)
[2018-02-20] MEDS: DOCUSATE SODIUM 100MG CAPSULE PO SCH ×2 (10:16→17:00)
[2018-02-20] MEDS: BENAZEPRIL 5MG TABLET PO SCH ×2 (10:16→22:25)
[2018-02-20 13:37] LABS: HEPATITIS B SURFACE AB 220.6 mIU/mL
[2018-02-20 13:46] LABS: HEPATITIS B SURFACE ANTIGEN NEGATIVE
[2018-02-20 15:20] LABS: TOTAL IRON BINDING CAPACITY 231 ug/dL (250-450)
[2018-02-20 15:49] LABS: FOLIC ACID (FOLATE) SERUM 8.1 ng/mL (>5.38)
[2018-02-20] MEDS ORDERED: VANCOMYCIN 500 MG PREMIX 100 ML IV NR (17:00)
[2018-02-20] MEDS ORDERED: EPOETIN ALFA 10000UNITS/ML VIAL SUBCUT SCH (21:00)
[2018-02-21] VITALS (24 sets, daily range): BP systolic 104–196; BP diastolic 70–140
[2018-02-21] MEDS: HYDROMORPHONE HCL/PF 2MG/ML CPJ IV PRN ×3 (01:24→22:39)
[2018-02-21 06:36] LABS: BASOPHILS % 0.6 % (0.0-2.0); EOSINOPHILS % 0.6 % (0.0-5.0); HEMATOCRIT. 24.5 % (36.0-48.0); HEMOGLOBIN. 8.1 g/dL (12.0-16.0); LYMPHOCYTES % 33.5 % (20.0-50.0); MEAN CORPUSCULAR HEMOGLOBIN 27.8 pg (28.0-32.0); MEAN CORPUSCULAR VOLUME 84.4 fL (81.0-99.0); MEAN PLATELET VOLUME 10.6 fl (7.4-10.4); MONOCYTES % 6.9 % (2.0-8.0); NEUTROPHILS % 58.4 % (40.0-76.0); PLATELET 113 x1000/uL (130-400); RED CELL DISTRIBUTION WIDTH 19.7 % (11.6-14.6)
[2018-02-21] MEDS: SEVELAMER CARBONATE 800 MG TABLET PO SCH ×3 (07:01→17:34)
[2018-02-21] MEDS: IRON SUCROSE COMPLEX 100 MG/5 ML ML IV SCH (07:59)
[2018-02-21] MEDS: ONDANSETRON HCL 4MG/2ML INJ IV PRN (08:03)
[2018-02-21] MEDS: PANTOPRAZOLE SODIUM 40 MG/VIAL IV SCH (08:03)
[2018-02-21] MEDS: CARVEDILOL 12.5MG TABLET PO SCH ×2 (09:00→20:11)
[2018-02-21] MEDS: BENAZEPRIL 5MG TABLET PO SCH ×2 (09:00→20:12)
[2018-02-21] MEDS: DOCUSATE SODIUM 100MG CAPSULE PO SCH ×2 (09:00→17:00)
[2018-02-21] MEDS ORDERED: LIDOCAINE HCL 1% 20ML VIAL (Pyxis) INJ ONE (10:02)
[2018-02-21] MEDS ORDERED: SODIUM BICARBONATE 4% (2.4MEQ) 5ML VIAL IV ONE (10:02)
[2018-02-21] MEDS ORDERED: LIDOCAINE HCL/PF 1% 10 MG/ML 5ML VIAL ONE (10:09)
[2018-02-21] MEDS ORDERED: PROPOFOL 200MG/20ML VIAL IV ONE (10:09)
[2018-02-21] MEDS ORDERED: MIDAZOLAM HCL 5 MG/5 ML VIAL ONE (10:09)
[2018-02-21 19:53] LABS: CLARITY URINE CLOUDY (CLEAR); COLOR URINE YELLOW (YELLOW); KETONES URINE NEGATIVE (NEGATIVE); LEUKOCYTE ESTERASE URINE 2+ (NEGATIVE); NITRITE URINE NEGATIVE (NEGATIVE); OCCULT BLOOD URINE 2+ (NEGATIVE); PH URINE 7.5 (4.5-8.0); PROTEIN URINE 3+ (NEGATIVE); SPECIFIC GRAVITY URINE 1.014 (1.005-1.030); UCG SCREEN NEGATIVE; UROBILINOGEN URINE 0.2 E.U./dL (0.2-1.0)
[2018-02-22] VITALS (17 sets, daily range): BP systolic 114–152; BP diastolic 66–94
[2018-02-22] MEDS: HYDROMORPHONE HCL/PF 2MG/ML CPJ IV PRN ×3 (04:07→21:00)
[2018-02-22] MEDS: IRON SUCROSE COMPLEX 100 MG/5 ML ML IV SCH (06:43)
[2018-02-22] MEDS: SEVELAMER CARBONATE 800 MG TABLET PO SCH ×3 (06:43→18:03)
[2018-02-22] MEDS: ONDANSETRON HCL 4MG/2ML INJ IV PRN (06:43)
[2018-02-22 07:23] LABS: BASOPHILS % 0.5 % (0.0-2.0); EOSINOPHILS % 0.8 % (0.0-5.0); HEMATOCRIT. 25.3 % (36.0-48.0); HEMOGLOBIN. 8.2 g/dL (12.0-16.0); LYMPHOCYTES % 31.3 % (20.0-50.0); MEAN CORPUSCULAR HEMOGLOBIN 27.5 pg (28.0-32.0); MEAN CORPUSCULAR VOLUME 85.3 fL (81.0-99.0); MEAN PLATELET VOLUME 10.5 fl (7.4-10.4); MONOCYTES % 6.8 % (2.0-8.0); NEUTROPHILS % 60.6 % (40.0-76.0); PLATELET 114 x1000/uL (130-400); RED BLOOD CELL COUNT 2.97 mill/uL (4.2-5.4); RED CELL DISTRIBUTION WIDTH 19.8 % (11.6-14.6)
[2018-02-22 07:26] LABS: CHLORIDE 103 mEq/L (98-107)
[2018-02-22 07:35] LABS: CREATINE KINASE 33 IU/L (26-192)
[2018-02-22 07:37] LABS: CREATINE KINASE MB FRACTION 1.9 ng/mL (0.5-3.6)
[2018-02-22] MEDS: PANTOPRAZOLE SODIUM 40 MG/VIAL IV SCH (08:07)
[2018-02-22] MEDS: DOCUSATE SODIUM 100MG CAPSULE PO SCH ×3 (08:07→17:00)
[2018-02-22] MEDS: CARVEDILOL 12.5MG TABLET PO SCH (08:08)
[2018-02-22] MEDS: BENAZEPRIL 5MG TABLET PO SCH ×2 (10:37→21:14)
[2018-02-22] MEDS ORDERED: LEVOFLOXACIN 250MG PREMIX 50 ML IV SCH (11:00)
[2018-02-22] MEDS ORDERED: BISACODYL 10MG SUPP PR PRN (12:30)
[2018-02-22] MEDS: CALCIUM ACETATE 667MG CAPSULE PO SCH (18:03)
[2018-02-22] MEDS ORDERED: EPOETIN ALFA 4000UNITS/ML VIAL SUBCUT SCH (21:00)
[2018-02-22] MEDS: CARVEDILOL 25MG TABLET PO SCH (21:03)
[2018-02-23] VITALS: BP 149/69
[2018-02-23 02:00] VITALS: BP 127/61
[2018-02-23] MEDS: HYDROMORPHONE HCL/PF 2MG/ML CPJ IV PRN (03:35)
[2018-02-23 04:00] VITALS: BP 134/82
[2018-02-23] MEDS: IRON SUCROSE COMPLEX 100 MG/5 ML ML IV SCH (05:07)
[2018-02-23 06:00] VITALS: BP 144/87
[2018-02-23 06:27] LABS: BASOPHILS % 0.6 % (0.0-2.0); EOSINOPHILS % 1.4 % (0.0-5.0); HEMATOCRIT. 24.6 % (36.0-48.0); LYMPHOCYTES % 34.7 % (20.0-50.0); MEAN CORPUSCULAR HEMOGLOBIN 27.6 pg (28.0-32.0); MEAN CORPUSCULAR VOLUME 84.5 fL (81.0-99.0); MEAN PLATELET VOLUME 10.4 fl (7.4-10.4); MONOCYTES % 7.4 % (2.0-8.0); NEUTROPHILS % 55.9 % (40.0-76.0); PLATELET 104 x1000/uL (130-400); RED BLOOD CELL COUNT 2.91 mill/uL (4.2-5.4); RED CELL DISTRIBUTION WIDTH 19.9 % (11.6-14.6)
[2018-02-23 08:00] VITALS: BP 132/89
[2018-02-23] MEDS: PANTOPRAZOLE SODIUM 40 MG/VIAL IV SCH (08:44)
[2018-02-23] MEDS: SEVELAMER CARBONATE 800 MG TABLET PO SCH (08:44)
[2018-02-23] MEDS: CALCIUM ACETATE 667MG CAPSULE PO SCH (08:45)
[2018-02-23] MEDS: BENAZEPRIL 5MG TABLET PO SCH (08:45)
[2018-02-23] MEDS: DOCUSATE SODIUM 100MG CAPSULE PO SCH (08:46)
[2018-02-23] MEDS: CARVEDILOL 25MG TABLET PO SCH (08:46)
[2018-02-23] MEDS ORDERED: FOLIC ACID/VITAMIN B COMP W-C TABLET PO SCH (09:00)
[2018-02-23] MEDS ORDERED: ZINC SULFATE 220 MG ( 50 ) CAPSULE PO SCH (09:00)
[2018-02-23] MEDS ORDERED: ASCORBIC ACID 500 MG TABLET PO SCH (09:00)
[2018-02-23 09:03] VITALS: BP 132/89
[2018-02-23] MEDS ORDERED: DIGOXIN 125MCG TABLET PO SCH (18:00)
== END 2018-02-23 09:56 | disposition home or self-care (01) | DRG 466 ==
LOC: ER 12:42 → 6WST 13:14 → EDBEDREQTM 13:16 → EDBEDREQ 13:16 → ENRESERV 13:34 → 3WST 02-20 11:25
PROVIDERS: ADMIT Internal Medicine; ATTEND Internal Medicine
PROC: B548ZZA Ultrasonography of Superior Vena Cava, Guidance (ICD-10-PCS; 2018-02-21)
PROC: B5181ZA Fluoroscopy of Superior Vena Cava using Low Osmolar Contrast, Guidance (ICD-10-PCS; 2018-02-21)
PROC: 02HV33Z Insertion of Infusion Device into Superior Vena Cava, Percutaneous Approach (ICD-10-PCS; 2018-02-21)
PROC: B5181ZA Fluoroscopy of Superior Vena Cava using Low Osmolar Contrast, Guidance (ICD-10-PCS; 2018-02-21)
PROC: B548ZZA Ultrasonography of Superior Vena Cava, Guidance (ICD-10-PCS; 2018-02-21)
PROC: 5A1D70Z Performance of Urinary Filtration, Intermittent, Less than 6 Hours Per Day (ICD-10-PCS; 2018-02-21)
PROC: 02HV33Z Insertion of Infusion Device into Superior Vena Cava, Percutaneous Approach (ICD-10-PCS; principal; 2018-02-21 10:00)
PROC: 5A1D70Z Performance of Urinary Filtration, Intermittent, Less than 6 Hours Per Day (ICD-10-PCS; 2018-02-22)
DX: T82.898A Other specified complication of vascular prosthetic devices, implants and grafts, initial encounter (principal); N18.6 End stage renal disease; E43 Unspecified severe protein-calorie malnutrition; I13.2 Hypertensive heart and chronic kidney disease with heart failure and with stage 5 chronic kidney disease, or end stage renal disease; I47.2 Ventricular tachycardia; L89.150 Pressure ulcer of sacral region, unstageable; D69.6 Thrombocytopenia, unspecified; I27.20 Pulmonary hypertension, unspecified; E87.5 Hyperkalemia; I31.3 Pericardial effusion (noninflammatory); N39.0 Urinary tract infection, site not specified; I42.0 Dilated cardiomyopathy; R74.8 Abnormal levels of other serum enzymes; I36.1 Nonrheumatic tricuspid (valve) insufficiency; I48.4 Atypical atrial flutter; F14.10 Cocaine abuse, uncomplicated; I50.23 Acute on chronic systolic (congestive) heart failure; D63.8 Anemia in other chronic diseases classified elsewhere; E78.5 Hyperlipidemia, unspecified; E78.00 Pure hypercholesterolemia, unspecified; J44.9 Chronic obstructive pulmonary disease, unspecified; Z60.2 Problems related to living alone; Z99.2 Dependence on renal dialysis; Z87.01 Personal history of pneumonia (recurrent); Z86.19 Personal history of other infectious and parasitic diseases; Z68.25 Body mass index [BMI] 25.0-25.9, adult; Z88.0 Allergy status to penicillin; Z87.891 Personal history of nicotine dependence; Y83.2 Surgical operation with anastomosis, bypass or graft as the cause of abnormal reaction of the patient, or of later complication, without mention of misadventure at the time of the procedure; Y92.89 Other specified places as the place of occurrence of the external cause
CPT/HCPCS: 36415; 36558; 36569; 36600; 71045; 74176; 76705; 76937; 77001; 80048; 80202; 81025; 82375; 82550; 82553; 82607; 82728; 82746; 82805; 83540; 83550; 83735; 84100; 84134; 84145; 84484; 84703; 86706; 86850; 86900; 87340; 93005; 93970; 93971; 99291; A6261; C1725; C1750; C1769; C9113; J0885; J1170; J1642; J1956; J2250; J2405; J2704; J3370; J3490; J7040; J7050

== ENCOUNTER 2018-02-24 20:48 | Inpatient (IN) | payer MEDICAID ==
[~2018-02-24] VITALS: Ht 167.6 cm; Wt 66.7 kg
[2018-02-24 22:39] LABS: BASOPHILS % 0.7 % (0.0-2.0); EOSINOPHILS % 1.1 % (0.0-5.0); HEMATOCRIT. 31.4 % (36.0-48.0); HEMOGLOBIN. 9.8 g/dL (12.0-16.0); LYMPHOCYTES % 23.2 % (20.0-50.0); MEAN CORPUSCULAR HEMOGLOBIN 27.6 pg (28.0-32.0); MEAN PLATELET VOLUME 10.6 fl (7.4-10.4); MONOCYTES % 4.6 % (2.0-8.0); NEUTROPHILS % 70.4 % (40.0-76.0); PLATELET 125 x1000/uL (130-400); RED BLOOD CELL COUNT 3.57 mill/uL (4.2-5.4); RED CELL DISTRIBUTION WIDTH 20.6 % (11.6-14.6)
[2018-02-24 22:45] LABS: CHLORIDE 102 mEq/L (98-107)
[2018-02-24] MEDS ORDERED: METOPROLOL TARTRATE 5MG/5ML VIAL IV ONE (22:45)
[2018-02-24 22:47] LABS: INR 1.3; PROTHROMBIN TIME 12.7 sec (9.1-11.1)
[2018-02-24 22:51] LABS: PHOSPHORUS 5.8 mg/dL (2.5-4.9)
[2018-02-24] MEDS ORDERED: FENTANYL CITRATE/PF 50MCG/ML 2ML VIAL IV ONE (23:00)
[2018-02-24] MEDS ORDERED: VANCOMYCIN 1 G PREMIX 200 ML IV SCH (23:00)
[2018-02-24] MEDS ORDERED: ASPIRIN 81MG TABLET PO ONE (23:00)
[2018-02-25] VITALS (9 sets, daily range): BP systolic 94–142; BP diastolic 55–85
[2018-02-25] MEDS ORDERED: HYDROCODONE/ACETAMINOPHEN 5/325MG TABLET PO PRN (00:45)
[2018-02-25] MEDS ORDERED: ACETAMINOPHEN 650MG SUPP PR PRN (00:45)
[2018-02-25] MEDS ORDERED: CLONIDINE 0.1MG TABLET PO PRN (00:45)
[2018-02-25] MEDS ORDERED: LEVOFLOXACIN 500MG TABLET PO SCH ×2 (01:40→02:00)
[2018-02-25 06:33] LABS: BASOPHILS % 0.4 % (0.0-2.0); EOSINOPHILS % 1.6 % (0.0-5.0); HEMATOCRIT. 27.3 % (36.0-48.0); HEMOGLOBIN. 8.8 g/dL (12.0-16.0); LYMPHOCYTES % 28.3 % (20.0-50.0); MEAN CORPUSCULAR HEMOGLOBIN 27.7 pg (28.0-32.0); MEAN CORPUSCULAR VOLUME 86.3 fL (81.0-99.0); MEAN PLATELET VOLUME 10.5 fl (7.4-10.4); MONOCYTES % 4.9 % (2.0-8.0); NEUTROPHILS % 64.8 % (40.0-76.0); PLATELET 106 x1000/uL (130-400); RED BLOOD CELL COUNT 3.16 mill/uL (4.2-5.4); RED CELL DISTRIBUTION WIDTH 20.2 % (11.6-14.6)
[2018-02-25 06:54] LABS: CREATINE KINASE MB FRACTION 1.8 ng/mL (0.5-3.6)
[2018-02-25] MEDS: CALCITRIOL 0.25MCG CAPSULE PO SCH ×2 (09:00→09:08)
[2018-02-25] MEDS ORDERED: LISINOPRIL 20MG TABLET PO SCH (09:00)
[2018-02-25] MEDS ORDERED: CARVEDILOL 3.125 MG TABLET PO SCH (09:00)
[2018-02-25] MEDS: FUROSEMIDE 40MG TABLET PO SCH (09:08)
[2018-02-25] MEDS ORDERED: INFLUENZA VIRUS VACCINE(AFLURIA) 0.5ML SYR IM ONE (12:00)
[2018-02-25] MEDS ORDERED: PNEUMOCOCCAL 23-VAL P-SAC VAC 0.5 ML IM ONE (12:00)
[2018-02-25] MEDS: ASPIRIN 81MG EC TABLET PO SCH (13:04)
[2018-02-25] MEDS: DILTIAZEM HCL 30MG TABLET PO SCH ×2 (14:00→21:18)
[2018-02-25 16:49] LABS: CREATINE KINASE MB FRACTION 1.9 ng/mL (0.5-3.6)
[2018-02-25 16:56] LABS: HCG SCREEN NEGATIVE
[2018-02-25] MEDS: HYDROMORPHONE HCL/PF 2MG/ML CPJ IV PRN (17:55)
[2018-02-25] MEDS: CARVEDILOL 12.5MG TABLET PO SCH ×2 (20:40→21:18)
[2018-02-26] VITALS (20 sets, daily range): BP systolic 103–135; BP diastolic 54–86
[2018-02-26] MEDS: HYDROMORPHONE HCL/PF 2MG/ML CPJ IV PRN ×2 (05:06→19:12)
[2018-02-26] MEDS: DILTIAZEM HCL 30MG TABLET PO SCH ×3 (06:01→21:14)
[2018-02-26] MEDS: FUROSEMIDE 40MG TABLET PO SCH (08:42)
[2018-02-26] MEDS: ASPIRIN 81MG EC TABLET PO SCH (08:42)
[2018-02-26] MEDS: CALCITRIOL 0.25MCG CAPSULE PO SCH (08:43)
[2018-02-26] MEDS: CARVEDILOL 12.5MG TABLET PO SCH ×2 (08:43→21:14)
[2018-02-26 09:07] LABS: BASOPHILS % 0.4 % (0.0-2.0); EOSINOPHILS % 1.6 % (0.0-5.0); HEMATOCRIT. 33.4 % (36.0-48.0); HEMOGLOBIN. 10.2 g/dL (12.0-16.0); LYMPHOCYTES % 28.8 % (20.0-50.0); MEAN CORPUSCULAR HEMOGLOBIN 27.2 pg (28.0-32.0); MEAN CORPUSCULAR VOLUME 88.7 fL (81.0-99.0); MEAN PLATELET VOLUME 10.9 fl (7.4-10.4); MONOCYTES % 5.9 % (2.0-8.0); NEUTROPHILS % 63.3 % (40.0-76.0); PLATELET 107 x1000/uL (130-400); RED BLOOD CELL COUNT 3.77 mill/uL (4.2-5.4); RED CELL DISTRIBUTION WIDTH 21.2 % (11.6-14.6)
[2018-02-26] MEDS ORDERED: ONDANSETRON HCL 4MG/2ML INJ IV PRN (09:30)
[2018-02-26 11:32] LABS: *AMPHETAMINES SCREEN URINE NEGATIVE (NEGATIVE); METHADONE URINE SCREEN NEGATIVE (NEGATIVE); PHENCYCLIDINE URINE SCREEN NEGATIVE (NEGATIVE)
[2018-02-26 11:33] LABS: CANNABINOID URINE SCREEN NEGATIVE (NEGATIVE)
[2018-02-26 11:34] LABS: *BARBITURATES SCREEN URINE NEGATIVE (NEGATIVE)
[2018-02-26 11:40] LABS: *BENZODIAZEPINES SCREEN URINE PRESUMTIVE POSITIVE (NEGATIVE); *COCAINE SCREEN URINE PRESUMTIVE POSITIVE (NEGATIVE); OPIATES URINE SCREEN PRESUMTIVE POSITIVE (NEGATIVE)
[2018-02-27] VITALS (43 sets, daily range): BP systolic 66–136; BP diastolic 30–85
[2018-02-27] MEDS: HYDROMORPHONE HCL/PF 2MG/ML CPJ IV PRN ×3 (03:13→21:24)
[2018-02-27] MEDS: DILTIAZEM HCL 30MG TABLET PO SCH ×3 (06:02→21:22)
[2018-02-27 06:32] LABS: BASOPHILS % 0.4 % (0.0-2.0); EOSINOPHILS % 1.9 % (0.0-5.0); HEMATOCRIT. 24.2 % (36.0-48.0); HEMOGLOBIN. 7.8 g/dL (12.0-16.0); LYMPHOCYTES % 26.4 % (20.0-50.0); MEAN CORPUSCULAR VOLUME 86.5 fL (81.0-99.0); MEAN PLATELET VOLUME 11.4 fl (7.4-10.4); NEUTROPHILS % 66.3 % (40.0-76.0); PLATELET 117 x1000/uL (130-400); RED CELL DISTRIBUTION WIDTH 20.6 % (11.6-14.6)
[2018-02-27] MEDS ORDERED: LEVOFLOXACIN 250MG TABLET PO SCH (09:00)
[2018-02-27] MEDS: ASPIRIN 81MG EC TABLET PO SCH (09:00)
[2018-02-27] MEDS: FUROSEMIDE 40MG TABLET PO SCH (09:00)
[2018-02-27] MEDS: CARVEDILOL 12.5MG TABLET PO SCH ×2 (09:00→21:21)
[2018-02-27] MEDS: CALCITRIOL 0.25MCG CAPSULE PO SCH (09:00)
[2018-02-27] MEDS ORDERED: IRON SUCROSE COMPLEX 100 MG/5 ML ML IV SCH (21:00)
[2018-02-28] VITALS (39 sets, daily range): BP systolic 94–133; BP diastolic 29–77
[2018-02-28] MEDS: DILTIAZEM HCL 30MG TABLET PO SCH ×2 (05:42→13:35)
[2018-02-28] MEDS: HYDROMORPHONE HCL/PF 2MG/ML CPJ IV PRN (06:59)
[2018-02-28 07:26] LABS: BASOPHILS % 0.3 % (0.0-2.0); EOSINOPHILS % 1.9 % (0.0-5.0); HEMATOCRIT. 26.4 % (36.0-48.0); HEMOGLOBIN. 8.4 g/dL (12.0-16.0); LYMPHOCYTES % 26.5 % (20.0-50.0); MEAN CORPUSCULAR HEMOGLOBIN 27.6 pg (28.0-32.0); MEAN CORPUSCULAR VOLUME 86.4 fL (81.0-99.0); MEAN PLATELET VOLUME 10.1 fl (7.4-10.4); MONOCYTES % 5.1 % (2.0-8.0); NEUTROPHILS % 66.2 % (40.0-76.0); PLATELET 117 x1000/uL (130-400); RED BLOOD CELL COUNT 3.05 mill/uL (4.2-5.4); RED CELL DISTRIBUTION WIDTH 22.1 % (11.6-14.6)
[2018-02-28] MEDS: CALCITRIOL 0.25MCG CAPSULE PO SCH (09:00)
[2018-02-28] MEDS: FUROSEMIDE 40MG TABLET PO SCH (09:04)
[2018-02-28] MEDS: ASPIRIN 81MG EC TABLET PO SCH (09:05)
[2018-02-28] MEDS: CARVEDILOL 12.5MG TABLET PO SCH (09:05)
[2018-02-28] MEDS ORDERED: IRON SUCROSE COMPLEX 100 MG/5 ML ML IV SCH (10:00)
[2018-02-28 11:04] LABS: PLATELET ESTIMATE DECREASED
== END 2018-02-28 13:35 | disposition home or self-care (01) | DRG 139 ==
LOC: ER 20:48 → EDBEDREQ 22:46 → 5EST 22:47 → EDBEDREQ 22:49 → EDBEDREQTM 22:49 → ENRESERV 22:57
PROVIDERS: ADMIT Internal Medicine; ATTEND Internal Medicine
DX: J18.9 Pneumonia, unspecified organism (principal); J96.00 Acute respiratory failure, unspecified whether with hypoxia or hypercapnia; I13.2 Hypertensive heart and chronic kidney disease with heart failure and with stage 5 chronic kidney disease, or end stage renal disease; D69.6 Thrombocytopenia, unspecified; E87.2 Acidosis; I27.20 Pulmonary hypertension, unspecified; E44.0 Moderate protein-calorie malnutrition; I42.9 Cardiomyopathy, unspecified; N18.6 End stage renal disease; I47.1 Supraventricular tachycardia; I48.4 Atypical atrial flutter; I50.22 Chronic systolic (congestive) heart failure; F14.90 Cocaine use, unspecified, uncomplicated; Z99.2 Dependence on renal dialysis; E78.5 Hyperlipidemia, unspecified; D63.1 Anemia in chronic kidney disease; D63.8 Anemia in other chronic diseases classified elsewhere; D50.9 Iron deficiency anemia, unspecified; I48.91 Unspecified atrial fibrillation; Z88.0 Allergy status to penicillin; Z95.0 Presence of cardiac pacemaker; Z68.23 Body mass index [BMI] 23.0-23.9, adult
CPT/HCPCS: 36415; 71045; 80048; 80061; 80305; 82550; 82553; 83605; 83735; 84100; 84145; 84484; 84703; 90686; 90732; 93005; 96374; 96375; 97116; 97162; 99291; C1893; J1170; J2405; J3010; J3370; J3490

== ENCOUNTER 2018-03-15 14:04 | Inpatient (IN) | payer MEDICAID ==
[~2018-03-15] VITALS: Ht 165.1 cm; Wt 65.9 kg
[2018-03-15 16:58] LABS: BASOPHILS % 0.5 % (0.0-2.0); EOSINOPHILS % 0.2 % (0.0-5.0); HEMATOCRIT. 26.7 % (36.0-48.0); HEMOGLOBIN. 8.4 g/dL (12.0-16.0); LYMPHOCYTES % 13.1 % (20.0-50.0); MEAN CORPUSCULAR HEMOGLOBIN 28.7 pg (28.0-32.0); MEAN CORPUSCULAR VOLUME 90.7 fL (81.0-99.0); MEAN PLATELET VOLUME 11.2 fl (7.4-10.4); MONOCYTES % 3.8 % (2.0-8.0); NEUTROPHILS % 82.4 % (40.0-76.0); PLATELET 75 x1000/uL (130-400); RED BLOOD CELL COUNT 2.94 mill/uL (4.2-5.4); RED CELL DISTRIBUTION WIDTH 21.2 % (11.6-14.6)
[2018-03-15 17:03] LABS: CHLORIDE 99 mEq/L (98-107)
[2018-03-15 17:11] LABS: HCG SCREEN NEGATIVE
[2018-03-15] MEDS ORDERED: AZTREONAM 2 GM in DEXT 5% WATER 100 ML IV STA (19:24)
[2018-03-15] MEDS ORDERED: VANCOMYCIN 1 G PREMIX 200 ML IV ONE (19:30)
[2018-03-15] MEDS ORDERED: LEVOFLOXACIN 750MG PREMIX 150 ML IV ONE (19:30)
[2018-03-15] MEDS ORDERED: IPRATROPIUM/ALBUTEROL 0.5-3(2.5)MG/3ML NEB INH PRN (21:15)
[2018-03-15] MEDS ORDERED: MAGNESIUM/ALUMINUM HYDROXIDE/SIMETHICONE 30ML UDC PO PRN (21:15)
[2018-03-15] MEDS ORDERED: LORAZEPAM 2MG/ML CPJ IV PRN (21:15)
[2018-03-15] MEDS ORDERED: HYDROCODONE/ACETAMINOPHEN 10/325MG TABLET PO PRN (21:15)
[2018-03-15] MEDS ORDERED: HYDRALAZINE 20MG/ML VIAL IV PRN (21:15)
[2018-03-15] MEDS ORDERED: CLONIDINE 0.1MG TABLET PO PRN (21:15)
[2018-03-15] MEDS ORDERED: DOCUSATE SODIUM 100MG CAPSULE PO PRN (21:15)
[2018-03-15] MEDS ORDERED: VANCOMYCIN 1 G PREMIX 200 ML IV SCH (21:15)
[2018-03-15] MEDS ORDERED: ENOXAPARIN 40MG/0.4ML SYR SUBCUT SCH (21:15)
[2018-03-15] MEDS ORDERED: ONDANSETRON HCL 4MG/2ML INJ IV PRN (21:15)
[2018-03-15] MEDS ORDERED: LEVOFLOXACIN 500MG PREMIX 100 ML IV SCH (21:15)
[2018-03-15] MEDS ORDERED: ACETAMINOPHEN 325MG TABLET PO PRN (21:15)
[2018-03-15] MEDS ORDERED: GUAIFENESIN 200MG/10ML SUGAR FREE UDC PO PRN (21:15)
[2018-03-16 00:19] LABS: CREATINE KINASE MB FRACTION 1.4 ng/mL (0.5-3.6)
[2018-03-16 00:36] VITALS: BP 134/65
[2018-03-16] MEDS: HYDROMORPHONE HCL/PF 2MG/ML CPJ IV PRN ×4 (01:09→20:38)
[2018-03-16 04:00] VITALS: BP 112/54
[2018-03-16] MEDS ORDERED: EPOETIN ALFA 4000UNITS/ML VIAL SUBCUT NR ×2 (06:00→21:00)
[2018-03-16] MEDS: SODIUM CHLORIDE 0.9% INJ 3ML FLUSH IVF SCH ×3 (06:04→21:30)
[2018-03-16 08:00] VITALS: BP 106/66
[2018-03-16] MEDS: CARVEDILOL 12.5MG TABLET PO SCH ×2 (09:00→20:37)
[2018-03-16] MEDS: BENAZEPRIL 5MG TABLET PO SCH ×2 (09:00→20:37)
[2018-03-16] MEDS ORDERED: ENOXAPARIN 30MG/0.3ML SYR SUBCUT SCH (09:00)
[2018-03-16 09:57] LABS: BASOPHILS % 0.3 % (0.0-2.0); EOSINOPHILS % 0.1 % (0.0-5.0); HEMOGLOBIN. 7.8 g/dL (12.0-16.0); LYMPHOCYTES % 11.5 % (20.0-50.0); MEAN CORPUSCULAR HEMOGLOBIN 28.7 pg (28.0-32.0); MEAN CORPUSCULAR VOLUME 88.8 fL (81.0-99.0); MEAN PLATELET VOLUME 11.6 fl (7.4-10.4); MONOCYTES % 2.7 % (2.0-8.0); NEUTROPHILS % 85.4 % (40.0-76.0); PLATELET 88 x1000/uL (130-400); RED BLOOD CELL COUNT 2.71 mill/uL (4.2-5.4); RED CELL DISTRIBUTION WIDTH 20.9 % (11.6-14.6)
[2018-03-16 10:06] LABS: CHLORIDE 100 mEq/L (98-107)
[2018-03-16 10:19] LABS: CREATINE KINASE 107 IU/L (26-192); LDL CHOLESTEROL 36 mg/dL (5-100)
[2018-03-16 10:20] LABS: CREATINE KINASE MB FRACTION < 1.0 ng/mL (0.5-3.6)
[2018-03-16 10:21] LABS: HDL CHOLESTEROL 24 mg/dL (40-59)
[2018-03-16 11:34] VITALS: BP 93/56
[2018-03-16 15:30] VITALS: BP 100/65
[2018-03-16] MEDS ORDERED: VANCOMYCIN 750 MG PREMIX 150 ML IV SCH (16:00)
[2018-03-16 19:04] LABS: BG BASE EXCESS -4.2 mmol/L (-2.0-2.0); BG CARBOXYHEMOGLOBIN 1.5 % (0.5-1.5); BG DEOXYHEMOGLOBIN 3.7 % (0.0-5.0); BG FRACTION INSPIRED OXYGEN 32; BG HCO3 ACT 19.5 mmol/L (22.0-26.0); BG METHEMOGLOBIN 0.6 % (0.0-1.5); BG OXYGEN SATURATION 96.2 % (92.0-98.5); BG OXYHEMOGLOBIN 94.2 % (94.0-97.0); BG PCO2 29.9 mmHg (35.0-45.0); BG PH 7.433 (7.350-7.450); BG PO2 91.4 mmHg (75.0-100.0); BG SAMPLE SITE RIGHT RADIAL; BG TOTAL HEMOGLOBIN 7.4 g/dL (12.0-18.0); BG VENT MODE NASAL CANNULA
[2018-03-16 20:00] VITALS: BP 119/65
[2018-03-16] MEDS ORDERED: EPOETIN ALFA 4000UNITS/ML VIAL SUBCUT SCH (21:00)
[2018-03-17] VITALS: BP 98/50
[2018-03-17] MEDS: IRON SUCROSE COMPLEX 100 MG/5 ML ML IV SCH ×2 (00:29→23:17)
[2018-03-17] MEDS: HYDROMORPHONE HCL/PF 2MG/ML CPJ IV PRN ×4 (01:38→21:36)
[2018-03-17 04:00] VITALS: BP 106/57
[2018-03-17] MEDS: CARVEDILOL 12.5MG TABLET PO SCH ×3 (06:00→21:04)
[2018-03-17] MEDS: SODIUM CHLORIDE 0.9% INJ 3ML FLUSH IVF SCH ×3 (06:31→21:18)
[2018-03-17 08:00] VITALS: BP 105/65
[2018-03-17] MEDS: BENAZEPRIL 5MG TABLET PO SCH ×2 (09:42→21:00)
[2018-03-17] MEDS: FOLIC ACID/VITAMIN B COMP W-C TABLET PO SCH (09:42)
[2018-03-17] MEDS: DOCUSATE SODIUM 100MG CAPSULE PO SCH ×3 (09:42→16:07)
[2018-03-17] MEDS: SEVELAMER CARBONATE 800 MG TABLET PO SCH ×3 (09:43→17:50)
[2018-03-17 12:00] VITALS: BP 110/66
[2018-03-17] MEDS ORDERED: IPRATROPIUM/ALBUTEROL 0.5-3(2.5)MG/3ML NEB HHN PRN (15:30)
[2018-03-17 16:00] VITALS: BP 109/69
[2018-03-17] MEDS: IPRATROPIUM/ALBUTEROL 0.5-3(2.5)MG/3ML NEB HHN SCH ×2 (16:44→21:14)
[2018-03-17 20:00] VITALS: BP 99/56
[2018-03-17] MEDS ORDERED: LEVOFLOXACIN 250MG PREMIX 50 ML IV SCH (22:00)
[2018-03-18] VITALS (7 sets, daily range): BP systolic 98–125; BP diastolic 47–94
[2018-03-18] MEDS: HYDROMORPHONE HCL/PF 2MG/ML CPJ IV PRN ×5 (03:07→21:41)
[2018-03-18] MEDS: CARVEDILOL 12.5MG TABLET PO SCH ×3 (06:00→21:41)
[2018-03-18] MEDS: SODIUM CHLORIDE 0.9% INJ 3ML FLUSH IVF SCH ×3 (06:05→21:42)
[2018-03-18] MEDS: SEVELAMER CARBONATE 800 MG TABLET PO SCH ×3 (08:33→17:42)
[2018-03-18] MEDS: BENAZEPRIL 5MG TABLET PO SCH ×2 (08:33→20:52)
[2018-03-18] MEDS: IPRATROPIUM/ALBUTEROL 0.5-3(2.5)MG/3ML NEB HHN SCH ×3 (08:33→20:26)
[2018-03-18] MEDS: FOLIC ACID/VITAMIN B COMP W-C TABLET PO SCH (08:33)
[2018-03-18] MEDS: DOCUSATE SODIUM 100MG CAPSULE PO SCH ×3 (08:33→17:00)
[2018-03-18] MEDS ORDERED: FLUCONAZOLE 150MG TABLET PO ONE (13:00)
[2018-03-18] MEDS ORDERED: EPOETIN ALFA 4000UNITS/ML VIAL SUBCUT SCH (21:00)
[2018-03-18] MEDS ORDERED: MICONAZOLE NITRATE 100MG VAG SUPP VG SCH (21:00)
[2018-03-18] MEDS: IRON SUCROSE COMPLEX 100 MG/5 ML ML IV SCH (22:35)
[2018-03-18] MEDS ORDERED: VANCOMYCIN 750 MG PREMIX 150 ML IV NR (23:00)
[2018-03-19] VITALS: BP 148/84
[2018-03-19] MEDS: HYDROMORPHONE HCL/PF 2MG/ML CPJ IV PRN (03:52)
[2018-03-19 04:00] VITALS: BP 151/87
[2018-03-19] MEDS: SODIUM CHLORIDE 0.9% INJ 3ML FLUSH IVF SCH (06:00)
[2018-03-19] MEDS: CARVEDILOL 12.5MG TABLET PO SCH (06:00)
[2018-03-19] MEDS: IPRATROPIUM/ALBUTEROL 0.5-3(2.5)MG/3ML NEB HHN SCH (07:33)
[2018-03-19] MEDS: SEVELAMER CARBONATE 800 MG TABLET PO SCH (07:50)
[2018-03-19 08:00] VITALS: BP 93/56
[2018-03-19] MEDS: BENAZEPRIL 5MG TABLET PO SCH (09:00)
[2018-03-19] MEDS: FOLIC ACID/VITAMIN B COMP W-C TABLET PO SCH (09:00)
[2018-03-19] MEDS: DOCUSATE SODIUM 100MG CAPSULE PO SCH (09:00)
[2018-03-19 09:06] VITALS: BP 93/56
[2018-03-19] MEDS ORDERED: CLOTRIMAZOLE 1% VAGINAL CREAM 45GM VG SCH (21:00)
== END 2018-03-19 09:21 | disposition home or self-care (01) | DRG 720 ==
LOC: ER 14:10 → EDBEDREQTM 19:33 → EDBEDREQ 19:33 → 6WST 20:07 → EDBEDREQ 20:11 → EDBEDREQTM 20:11 → ENRESERV 23:15
PROVIDERS: ADMIT Internal Medicine; ATTEND Internal Medicine
PROC: 5A1D70Z Performance of Urinary Filtration, Intermittent, Less than 6 Hours Per Day (ICD-10-PCS; principal; 2018-03-15)
DX: A41.9 Sepsis, unspecified organism (principal); J96.01 Acute respiratory failure with hypoxia; J69.0 Pneumonitis due to inhalation of food and vomit; I13.2 Hypertensive heart and chronic kidney disease with heart failure and with stage 5 chronic kidney disease, or end stage renal disease; E87.2 Acidosis; E46 Unspecified protein-calorie malnutrition; I42.9 Cardiomyopathy, unspecified; I48.91 Unspecified atrial fibrillation; B37.3 Candidiasis of vulva and vagina; N18.6 End stage renal disease; R65.10 Systemic inflammatory response syndrome (SIRS) of non-infectious origin without acute organ dysfunction; I50.43 Acute on chronic combined systolic (congestive) and diastolic (congestive) heart failure; D63.8 Anemia in other chronic diseases classified elsewhere; N76.0 Acute vaginitis; F14.10 Cocaine abuse, uncomplicated; F17.200 Nicotine dependence, unspecified, uncomplicated; W19.XXXA Unspecified fall, initial encounter; Y93.89 Activity, other specified; Z99.2 Dependence on renal dialysis; Y92.89 Other specified places as the place of occurrence of the external cause; Y99.8 Other external cause status; Z68.24 Body mass index [BMI] 24.0-24.9, adult; Z71.6 Tobacco abuse counseling
CPT/HCPCS: 36415; 36600; 71045; 73610; 80061; 80202; 82375; 82550; 82553; 82805; 83605; 83880; 84439; 84443; 84484; 84703; 87070; 93005; 93306; 94640; 96365; 96366; 96367; 96368; 99291; C1893; J0885; J1170; J1956; J2405; J3370; J3490; J7040; J7060; J7620

== ENCOUNTER 2018-04-06 03:20 | Inpatient (IN) | payer MEDICAID ==
[~2018-04-06] VITALS: Ht 152.4 cm; Wt 72.6 kg
[2018-04-06] MEDS ORDERED: LEVOFLOXACIN 750MG PREMIX 150 ML IV ONE (04:00)
[2018-04-06] MEDS ORDERED: ASPIRIN 81MG TABLET PO ONE (04:00)
[2018-04-06 04:29] LABS: BASOPHILS % 0.2 % (0.0-2.0); EOSINOPHILS % 0.9 % (0.0-5.0); HEMATOCRIT. 29.5 % (36.0-48.0); HEMOGLOBIN. 9.2 g/dL (12.0-16.0); LYMPHOCYTES % 22.4 % (20.0-50.0); MEAN CORPUSCULAR VOLUME 89.6 fL (81.0-99.0); MEAN PLATELET VOLUME 9.7 fl (7.4-10.4); MONOCYTES % 5.3 % (2.0-8.0); NEUTROPHILS % 71.2 % (40.0-76.0); PLATELET 160 x1000/uL (130-400); RED BLOOD CELL COUNT 3.29 mill/uL (4.2-5.4); RED CELL DISTRIBUTION WIDTH 21.1 % (11.6-14.6)
[2018-04-06 04:36] LABS: INR 1.1; PROTHROMBIN TIME 11.4 sec (9.1-11.1)
[2018-04-06 04:37] LABS: CHLORIDE 103 mEq/L (98-107)
[2018-04-06 04:38] LABS: HCG SCREEN NEGATIVE
[2018-04-06] MEDS ORDERED: ONDANSETRON HCL 4MG/2ML INJ IV STA (04:41)
[2018-04-06] MEDS ORDERED: MORPHINE SULFATE 4 MG/ML CPJ (NOT FOR IM USE) IV STA (04:41)
[2018-04-06] MEDS ORDERED: MORPHINE SULFATE 4 MG/ML CPJ (NOT FOR IM USE) IV PRN ×2 (08:03→12:30)
[2018-04-06] MEDS ORDERED: HYDROCODONE/ACETAMINOPHEN 5/325MG TABLET PO PRN (08:45)
[2018-04-06] MEDS ORDERED: GUAIFENESIN 200MG/10ML SUGAR FREE UDC PO PRN (08:45)
[2018-04-06] MEDS ORDERED: ACETAMINOPHEN 325MG TABLET PO PRN (08:45)
[2018-04-06] MEDS ORDERED: IPRATROPIUM/ALBUTEROL 0.5-3(2.5)MG/3ML NEB INH PRN (08:45)
[2018-04-06] MEDS ORDERED: ONDANSETRON HCL 4MG/2ML INJ IV PRN (08:45)
[2018-04-06] MEDS ORDERED: DOCUSATE SODIUM 100MG CAPSULE PO PRN (08:45)
[2018-04-06] MEDS: HEPARIN 5000 UNITS/ML VIAL SUBCUT SCH ×2 (09:56→21:46)
[2018-04-06 12:05] VITALS: BP 160/99
[2018-04-06 12:12] VITALS: BP 160/99
[2018-04-06] MEDS: HYDROMORPHONE HCL/PF 2MG/ML CPJ IV PRN ×2 (14:27→21:47)
[2018-04-06] MEDS: LOSARTAN POTASSIUM 50 MG TABLET PO SCH (15:08)
[2018-04-06 16:00] VITALS: BP 131/82
[2018-04-06] MEDS: DIPHENHYDRAMINE 50MG/ML VIAL IV PRN (17:52)
[2018-04-06 18:38] LABS: CLARITY URINE CLOUDY (CLEAR); COLOR URINE YELLOW (YELLOW); KETONES URINE NEGATIVE (NEGATIVE); LEUKOCYTE ESTERASE URINE 3+ (NEGATIVE); NITRITE URINE NEGATIVE (NEGATIVE); OCCULT BLOOD URINE 2+ (NEGATIVE); PH URINE 8.5 (4.5-8.0); PROTEIN URINE 2+ (NEGATIVE); SPECIFIC GRAVITY URINE 1.011 (1.005-1.030); UROBILINOGEN URINE 0.2 E.U./dL (0.2-1.0)
[2018-04-06] MEDS ORDERED: IRON SUCROSE COMPLEX 100 MG/5 ML ML IV SCH (18:45)
[2018-04-06 19:07] LABS: *AMPHETAMINES SCREEN URINE NEGATIVE (NEGATIVE); *BARBITURATES SCREEN URINE NEGATIVE (NEGATIVE); *BENZODIAZEPINES SCREEN URINE NEGATIVE (NEGATIVE); METHADONE URINE SCREEN NEGATIVE (NEGATIVE); PHENCYCLIDINE URINE SCREEN NEGATIVE (NEGATIVE)
[2018-04-06 19:08] LABS: CANNABINOID URINE SCREEN NEGATIVE (NEGATIVE)
[2018-04-06 19:11] LABS: *COCAINE SCREEN URINE PRESUMTIVE POSITIVE (NEGATIVE)
[2018-04-06 19:12] LABS: OPIATES URINE SCREEN PRESUMTIVE POSITIVE (NEGATIVE)
[2018-04-06 20:00] VITALS: BP 117/78
[2018-04-06] MEDS: EPOETIN ALFA 4000UNITS/ML VIAL SUBCUT SCH (21:00)
[2018-04-06] MEDS: AMLODIPINE 5MG TABLET PO SCH (21:46)
[2018-04-06] MEDS: IRON SUCROSE COMPLEX 100 MG/5 ML ML IV SCH (21:46)
[2018-04-06] MEDS: HYDRALAZINE HCL 25MG TABLET PO SCH (22:00)
[2018-04-06] MEDS: CLONIDINE 0.1MG TABLET PO SCH (22:00)
[2018-04-06] MEDS: CARVEDILOL 12.5MG TABLET PO SCH (22:12)
[2018-04-07] VITALS: BP 122/80
[2018-04-07] MEDS: DIPHENHYDRAMINE 50MG/ML VIAL IV PRN (00:12)
[2018-04-07 01:35] LABS: CREATINE KINASE MB FRACTION 2.2 ng/mL (0.5-3.6)
[2018-04-07 04:00] VITALS: BP 109/67
[2018-04-07] MEDS: HYDROMORPHONE HCL/PF 2MG/ML CPJ IV PRN ×3 (04:57→20:04)
[2018-04-07] MEDS: HYDRALAZINE HCL 25MG TABLET PO SCH ×3 (05:02→21:05)
[2018-04-07] MEDS: CLONIDINE 0.1MG TABLET PO SCH ×3 (05:02→21:05)
[2018-04-07 08:00] VITALS: BP 125/84
[2018-04-07] MEDS ORDERED: HEPARIN SODIUM 1,000 UNIT/1ML VIAL IV NR (10:30)
[2018-04-07 10:41] LABS: BASOPHILS % 0.3 % (0.0-2.0); CHLORIDE 100 mEq/L (98-107); EOSINOPHILS % 2.1 % (0.0-5.0); HEMATOCRIT. 22.7 % (36.0-48.0); HEMOGLOBIN. 7.4 g/dL (12.0-16.0); MEAN CORPUSCULAR HEMOGLOBIN 28.9 pg (28.0-32.0); MEAN CORPUSCULAR VOLUME 88.5 fL (81.0-99.0); MEAN PLATELET VOLUME 10.6 fl (7.4-10.4); MONOCYTES % 4.9 % (2.0-8.0); NEUTROPHILS % 66.7 % (40.0-76.0); PLATELET 129 x1000/uL (130-400); RED BLOOD CELL COUNT 2.57 mill/uL (4.2-5.4)
[2018-04-07 10:48] LABS: LDL CHOLESTEROL 47 mg/dL (5-100)
[2018-04-07 10:50] LABS: HDL CHOLESTEROL 38 mg/dL (40-59)
[2018-04-07 11:50] VITALS: BP 119/82
[2018-04-07] MEDS ORDERED: IOHEXOL-350 100 ML BOTTLE ONE (11:55)
[2018-04-07] MEDS: CARVEDILOL 12.5MG TABLET PO SCH ×2 (12:46→21:00)
[2018-04-07] MEDS: AMLODIPINE 5MG TABLET PO SCH ×2 (12:47→20:25)
[2018-04-07] MEDS: LOSARTAN POTASSIUM 50 MG TABLET PO SCH (12:47)
[2018-04-07] MEDS: HEPARIN 5000 UNITS/ML VIAL SUBCUT SCH ×2 (12:47→20:04)
[2018-04-07 15:53] VITALS: BP 100/67
[2018-04-07] MEDS: ACYCLOVIR 200MG CAPSULE PO SCH ×2 (17:27→20:02)
[2018-04-07 20:00] VITALS: BP 106/71
[2018-04-07] MEDS: IRON SUCROSE COMPLEX 100 MG/5 ML ML IV SCH (20:04)
[2018-04-07] MEDS: EPOETIN ALFA 4000UNITS/ML VIAL SUBCUT SCH (20:51)
[2018-04-07] MEDS ORDERED: SULFAMETHOXAZOLE/TRIMETHOPRIM 400/80MG TAB PO SCH (21:00)
[2018-04-08] VITALS: BP 97/63
[2018-04-08] MEDS: HYDROMORPHONE HCL/PF 2MG/ML CPJ IV PRN ×3 (02:19→14:43)
[2018-04-08 04:00] VITALS: BP 104/42
[2018-04-08] MEDS: HYDRALAZINE HCL 25MG TABLET PO SCH ×2 (06:00→14:00)
[2018-04-08] MEDS: CLONIDINE 0.1MG TABLET PO SCH ×2 (06:00→14:00)
[2018-04-08 07:02] LABS: BASOPHILS % 0.4 % (0.0-2.0); EOSINOPHILS % 2.6 % (0.0-5.0); HEMATOCRIT. 22.8 % (36.0-48.0); HEMOGLOBIN. 7.5 g/dL (12.0-16.0); MEAN CORPUSCULAR HEMOGLOBIN 28.9 pg (28.0-32.0); MEAN CORPUSCULAR VOLUME 88.5 fL (81.0-99.0); MEAN PLATELET VOLUME 11.4 fl (7.4-10.4); MONOCYTES % 6.7 % (2.0-8.0); NEUTROPHILS % 57.3 % (40.0-76.0); PLATELET 143 x1000/uL (130-400); RED BLOOD CELL COUNT 2.58 mill/uL (4.2-5.4); RED CELL DISTRIBUTION WIDTH 20.4 % (11.6-14.6)
[2018-04-08 08:00] VITALS: BP 106/70
[2018-04-08] MEDS ORDERED: LEVOFLOXACIN 500MG PREMIX 100 ML IV SCH ×2 (08:00)
[2018-04-08] MEDS: AMLODIPINE 5MG TABLET PO SCH (09:00)
[2018-04-08] MEDS: LOSARTAN POTASSIUM 50 MG TABLET PO SCH (09:00)
[2018-04-08] MEDS: HEPARIN 5000 UNITS/ML VIAL SUBCUT SCH (09:00)
[2018-04-08] MEDS: ACYCLOVIR 200MG CAPSULE PO SCH (09:00)
[2018-04-08 12:00] VITALS: BP 102/75
[2018-04-08 16:00] VITALS: BP 122/98
[2018-04-16 13:13] LABS: BARBITURATE SCREEN Negative ug/mL (Cutoff:0.1); BENZODIAZEPINE SCREEN Negative ng/mL (Cutoff:20); OPIATES SCREEN ++POSITIVE++ ng/mL (Cutoff:5); PHENCYCLIDINE SCREEN Negative ng/mL (Cutoff:8)
== END 2018-04-08 19:20 | disposition left against medical advice (07) | DRG 203 ==
LOC: ER 03:31 → EDBEDREQ 05:39 → EDBEDREQTM 05:39 → EDBEDREQ 05:40 → 8WST 05:56 → EDBEDREQTM 05:59 → EDBEDREQ 05:59 → ENRESERV 11:37
PROVIDERS: ADMIT Internal Medicine; ATTEND Internal Medicine
PROC: 5A1D70Z Performance of Urinary Filtration, Intermittent, Less than 6 Hours Per Day (ICD-10-PCS; principal; 2018-04-07)
PROC: 5A1D70Z Performance of Urinary Filtration, Intermittent, Less than 6 Hours Per Day (ICD-10-PCS; 2018-04-08)
DX: M94.0 Chondrocostal junction syndrome [Tietze] (principal); I13.2 Hypertensive heart and chronic kidney disease with heart failure and with stage 5 chronic kidney disease, or end stage renal disease; E46 Unspecified protein-calorie malnutrition; I42.0 Dilated cardiomyopathy; N18.6 End stage renal disease; I47.1 Supraventricular tachycardia; I48.0 Paroxysmal atrial fibrillation; B00.1 Herpesviral vesicular dermatitis; I50.9 Heart failure, unspecified; Z99.2 Dependence on renal dialysis; E78.5 Hyperlipidemia, unspecified; D63.1 Anemia in chronic kidney disease; N39.0 Urinary tract infection, site not specified; Z82.49 Family history of ischemic heart disease and other diseases of the circulatory system; Z88.0 Allergy status to penicillin; F14.10 Cocaine abuse, uncomplicated; Z68.31 Body mass index [BMI] 31.0-31.9, adult
CPT/HCPCS: 36415; 71045; 71250; 80048; 80061; 80305; 80307; 82550; 82553; 83605; 83735; 84145; 84443; 84484; 84703; 85379; 87077; 87186; 93005; 93970; 94640; 96365; 96375; 96376; 99285; J0885; J1170; J1200; J1644; J1956; J2270; J2405; J7050; J7620; Q9967

== ENCOUNTER 2018-04-10 13:08 | Inpatient (IN) | payer MEDICAID ==
[~2018-04-10] VITALS: Ht 165.1 cm; Wt 69.0 kg
[2018-04-10] MEDS ORDERED: ALBUTEROL (0.083%) 2.5MG/3ML NEB HHN STA (14:28)
[2018-04-10] MEDS ORDERED: IPRATROPIUM BROMIDE (0.02%) 0.5MG/2.5ML NEB HHN STA (14:28)
[2018-04-10] MEDS ORDERED: DIPHENHYDRAMINE 50MG/ML VIAL IV ONE (14:30)
[2018-04-10] MEDS ORDERED: MORPHINE SULFATE 4 MG/ML CPJ (NOT FOR IM USE) IV ONE (14:30)
[2018-04-10] MEDS ORDERED: ONDANSETRON HCL 4MG/2ML INJ IV ONE (14:30)
[2018-04-10] MEDS ORDERED: ASPIRIN 81MG TABLET PO ONE (15:00)
[2018-04-10 16:35] LABS: BASOPHILS % 0.5 % (0.0-2.0); EOSINOPHILS % 0.8 % (0.0-5.0); HEMATOCRIT. 25.8 % (36.0-48.0); HEMOGLOBIN. 7.9 g/dL (12.0-16.0); LYMPHOCYTES % 18.1 % (20.0-50.0); MEAN CORPUSCULAR HEMOGLOBIN 28.1 pg (28.0-32.0); MEAN CORPUSCULAR VOLUME 91.1 fL (81.0-99.0); MEAN PLATELET VOLUME 11.4 fl (7.4-10.4); MONOCYTES % 4.8 % (2.0-8.0); NEUTROPHILS % 75.8 % (40.0-76.0); PLATELET 182 x1000/uL (130-400); RED BLOOD CELL COUNT 2.83 mill/uL (4.2-5.4)
[2018-04-10 16:43] LABS: CHLORIDE 99 mEq/L (98-107)
[2018-04-10 16:46] LABS: INR 1.1; PARTIAL THROMBOPLASTIN TIME 30.1 sec (23.4-31.0); PROTHROMBIN TIME 11.4 sec (9.1-11.1)
[2018-04-10 16:50] LABS: HCG SCREEN NEGATIVE; PHOSPHORUS 3.7 mg/dL (2.5-4.9)
[2018-04-10] MEDS ORDERED: HYDROCODONE/ACETAMINOPHEN 5/325MG TABLET PO PRN (19:30)
[2018-04-10] MEDS ORDERED: DILTIAZEM HCL 5MG/ML 5ML VIAL IV PRN (19:30)
[2018-04-10] MEDS ORDERED: ACETAMINOPHEN 325MG TABLET PO PRN (19:30)
[2018-04-10] MEDS ORDERED: IPRATROPIUM/ALBUTEROL 0.5-3(2.5)MG/3ML NEB HHN PRN (19:30)
[2018-04-10] MEDS ORDERED: ONDANSETRON HCL 4MG/2ML INJ IV PRN (19:30)
[2018-04-10] MEDS ORDERED: NITROGLYCERIN 0.4MG TABLET SL SL PRN (19:30)
[2018-04-10] MEDS ORDERED: CLONIDINE 0.1MG TABLET PO PRN (19:30)
[2018-04-10] MEDS ORDERED: METOPROLOL TARTRATE 50MG TABLET PO ONE (19:45)
[2018-04-10 20:15] LABS: CREATINE KINASE MB FRACTION 1.8 ng/mL (0.5-3.6)
[2018-04-10 21:28] VITALS: BP_SYST 138; BP_SYST 144; BP_DIAS 75; BP_DIAS 83
[2018-04-10 21:30] VITALS: BP 138/83
[2018-04-10] MEDS ORDERED: INFLUENZA VIRUS VACCINE(AFLURIA) 0.5ML SYR IM ONE (22:00)
[2018-04-10] MEDS ORDERED: MORPHINE SULFATE 10MG/5ML ORAL SOLN UDC PO PRN (22:30)
[2018-04-11] VITALS (48 sets, daily range): BP systolic 68–161; BP diastolic 12–125
[2018-04-11] MEDS ORDERED: TUBERCULIN,PURIF.PROT.DERIV. 5 TU/0.1 ML SYR ID ONE (05:00)
[2018-04-11] MEDS ORDERED: EPOETIN ALFA 4000UNITS/ML VIAL SUBCUT NR (05:00)
[2018-04-11] MEDS ORDERED: LOSARTAN POTASSIUM 50 MG TABLET PO SCH (09:00)
[2018-04-11] MEDS ORDERED: CARVEDILOL 12.5MG TABLET PO SCH (09:00)
[2018-04-11] MEDS: DEXTROSE 50% WATER 50ML SYRINGE IV PRN (09:14)
[2018-04-11 09:24] LABS: HEMATOCRIT. 36.9 % (36.0-48.0); HEMOGLOBIN. 10.3 g/dL (12.0-16.0); MEAN PLATELET VOLUME 11.1 fl (7.4-10.4); PLATELET 179 x1000/uL (130-400); RED BLOOD CELL COUNT 3.68 mill/uL (4.2-5.4); RED CELL DISTRIBUTION WIDTH 21.3 % (11.6-14.6)
[2018-04-11] MEDS ORDERED: DEXT 10% WATER 1,000 ML IV SCH ×2 (09:45→10:00)
[2018-04-11] MEDS ORDERED: NOREPINEPHRINE 4MG/250ML PMX 250 ML IV ONE (10:00)
[2018-04-11] MEDS ORDERED: NOREPINEPHRINE 4 MG in DEXTROSE 5% WATER 250 ML IV PRN (10:15)
[2018-04-11 10:58] LABS: NUCLEATED RED BLOOD CELLS 1 /100 WBC
[2018-04-11 10:59] LABS: PLATELET ESTIMATE NORMAL
[2018-04-11] MEDS ORDERED: GENTAMICIN 80MG PREMIX 100 ML IV ONE (14:15)
[2018-04-11] MEDS ORDERED: VANCOMYCIN 1250MG in DEXTROSE 5% WATER 250ML IV NR (14:30)
[2018-04-11] MEDS: CEFEPIME 1,000 MG in DEXTROSE 5% WATER 50 ML IV SCH (16:14)
[2018-04-11] MEDS ORDERED: GENTAMICIN 80MG PREMIX 100 ML IV NR (17:00)
[2018-04-11] MEDS: BLOOD SUGAR DIAGNOSTIC STRIP TEST SCH (21:00)
[2018-04-11] MEDS ORDERED: DIPHENHYDRAMINE 50MG/ML VIAL IM PRN (23:00)
[2018-04-11] MEDS: MORPHINE SULFATE 4 MG/ML CPJ (NOT FOR IM USE) IV PRN (23:34)
[2018-04-11] MEDS: DIPHENHYDRAMINE 50MG/ML VIAL IV PRN (23:35)
[2018-04-12] VITALS (53 sets, daily range): BP systolic 62–142; BP diastolic 30–99
[2018-04-12] MEDS: MORPHINE SULFATE 4 MG/ML CPJ (NOT FOR IM USE) IV PRN ×4 (05:06→21:37)
[2018-04-12] MEDS: BLOOD SUGAR DIAGNOSTIC STRIP TEST SCH ×4 (06:30→20:46)
[2018-04-12] MEDS: CEFEPIME 1,000 MG in DEXTROSE 5% WATER 50 ML IV SCH ×2 (08:00→17:18)
[2018-04-12] MEDS: DEXTROSE 50% WATER 50ML SYRINGE IV PRN (08:00)
[2018-04-12] MEDS ORDERED: SODIUM BICARBONATE 4% (2.4MEQ) 5ML VIAL IV ONE (08:44)
[2018-04-12] MEDS ORDERED: LIDOCAINE HCL 1% 20ML VIAL (Pyxis) INJ ONE (08:45)
[2018-04-12] MEDS: DIPHENHYDRAMINE 50MG/ML VIAL IV PRN ×2 (12:28→20:42)
[2018-04-12] MEDS ORDERED: HEPARIN SODIUM 1,000 UNIT/1ML VIAL IV SCH (13:00)
[2018-04-12 14:04] LABS: BASOPHILS % 0.4 % (0.0-2.0); EOSINOPHILS % 0.1 % (0.0-5.0); HEMATOCRIT. 30.8 % (36.0-48.0); HEMOGLOBIN. 9.5 g/dL (12.0-16.0); LYMPHOCYTES % 13.9 % (20.0-50.0); MEAN CORPUSCULAR HEMOGLOBIN 27.9 pg (28.0-32.0); MEAN CORPUSCULAR VOLUME 90.7 fL (81.0-99.0); MEAN PLATELET VOLUME 10.6 fl (7.4-10.4); MONOCYTES % 6.6 % (2.0-8.0); PLATELET 144 x1000/uL (130-400); RED CELL DISTRIBUTION WIDTH 21.1 % (11.6-14.6)
[2018-04-12] MEDS ORDERED: VANCOMYCIN 750 MG PREMIX 150 ML IV NR (18:00)
[2018-04-12] MEDS ORDERED: FLUCONAZOLE 150MG TABLET PO NR (20:00)
[2018-04-12 20:13] LABS: CLARITY URINE TURBID (CLEAR); COLOR URINE YELLOW (YELLOW); KETONES URINE NEGATIVE (NEGATIVE); LEUKOCYTE ESTERASE URINE 3+ (NEGATIVE); NITRITE URINE NEGATIVE (NEGATIVE); OCCULT BLOOD URINE 3+ (NEGATIVE); PROTEIN URINE 3+ (NEGATIVE); SPECIFIC GRAVITY URINE 1.016 (1.005-1.030); UROBILINOGEN URINE 0.2 E.U./dL (0.2-1.0)
[2018-04-12] MEDS: CARVEDILOL 12.5MG TABLET PO SCH (20:34)
[2018-04-13] VITALS (64 sets, daily range): BP systolic 77–145; BP diastolic 17–105
[2018-04-13] MEDS ORDERED: AMIKACIN SULFATE 450 MG in SODIUM CHLORIDE 0.9% 100 ML IV NR (01:00)
[2018-04-13] MEDS: MORPHINE SULFATE 4 MG/ML CPJ (NOT FOR IM USE) IV PRN ×5 (01:26→20:59)
[2018-04-13 05:53] LABS: BASOPHILS % 0.4 % (0.0-2.0); EOSINOPHILS % 0.2 % (0.0-5.0); HEMATOCRIT. 22.5 % (36.0-48.0); LYMPHOCYTES % 17.1 % (20.0-50.0); MEAN CORPUSCULAR HEMOGLOBIN 28.5 pg (28.0-32.0); MEAN CORPUSCULAR VOLUME 91.9 fL (81.0-99.0); MEAN PLATELET VOLUME 10.6 fl (7.4-10.4); MONOCYTES % 5.6 % (2.0-8.0); NEUTROPHILS % 76.7 % (40.0-76.0); PLATELET 146 x1000/uL (130-400); RED BLOOD CELL COUNT 2.45 mill/uL (4.2-5.4); RED CELL DISTRIBUTION WIDTH 20.7 % (11.6-14.6)
[2018-04-13] MEDS: BLOOD SUGAR DIAGNOSTIC STRIP TEST SCH ×4 (06:12→21:00)
[2018-04-13] MEDS: CARVEDILOL 12.5MG TABLET PO SCH ×2 (08:44→20:59)
[2018-04-13] MEDS: CEFEPIME 1,000 MG in DEXTROSE 5% WATER 50 ML IV SCH (10:22)
[2018-04-13] MEDS: DIPHENHYDRAMINE 50MG/ML VIAL IV PRN ×3 (10:33→23:05)
[2018-04-13] MEDS ORDERED: EPOETIN ALFA 4000UNITS/ML VIAL SUBCUT SCH (21:00)
[2018-04-14] VITALS (24 sets, daily range): BP systolic 101–136; BP diastolic 66–98
[2018-04-14] MEDS: MORPHINE SULFATE 4 MG/ML CPJ (NOT FOR IM USE) IV PRN ×4 (02:37→20:49)
[2018-04-14] MEDS: DIPHENHYDRAMINE 50MG/ML VIAL IV PRN ×4 (03:14→21:22)
[2018-04-14 05:42] LABS: BASOPHILS % 0.3 % (0.0-2.0); EOSINOPHILS % 0.4 % (0.0-5.0); HEMOGLOBIN. 8.5 g/dL (12.0-16.0); LYMPHOCYTES % 19.5 % (20.0-50.0); MEAN CORPUSCULAR VOLUME 92.3 fL (81.0-99.0); MEAN PLATELET VOLUME 9.7 fl (7.4-10.4); NEUTROPHILS % 74.8 % (40.0-76.0); PLATELET 106 x1000/uL (130-400); RED BLOOD CELL COUNT 2.93 mill/uL (4.2-5.4); RED CELL DISTRIBUTION WIDTH 19.8 % (11.6-14.6)
[2018-04-14] MEDS: BLOOD SUGAR DIAGNOSTIC STRIP TEST SCH ×5 (06:28→20:49)
[2018-04-14] MEDS: CARVEDILOL 12.5MG TABLET PO SCH ×2 (08:42→20:48)
[2018-04-14] MEDS: CEFEPIME 1,000 MG in DEXTROSE 5% WATER 50 ML IV SCH (08:42)
[2018-04-15] VITALS: BP 129/94
[2018-04-15 04:00] VITALS: BP 126/85
[2018-04-15] MEDS: DIPHENHYDRAMINE 50MG/ML VIAL IV PRN (05:17)
[2018-04-15 07:24] LABS: BASOPHILS % 0.4 % (0.0-2.0); EOSINOPHILS % 0.3 % (0.0-5.0); HEMATOCRIT. 27.1 % (36.0-48.0); HEMOGLOBIN. 8.7 g/dL (12.0-16.0); MEAN CORPUSCULAR HEMOGLOBIN 29.7 pg (28.0-32.0); MEAN PLATELET VOLUME 9.8 fl (7.4-10.4); MONOCYTES % 4.9 % (2.0-8.0); NEUTROPHILS % 74.4 % (40.0-76.0); PLATELET 87 x1000/uL (130-400); RED BLOOD CELL COUNT 2.91 mill/uL (4.2-5.4); RED CELL DISTRIBUTION WIDTH 20.2 % (11.6-14.6)
[2018-04-15] MEDS: BLOOD SUGAR DIAGNOSTIC STRIP TEST SCH ×2 (08:40→11:47)
[2018-04-15 11:45] VITALS: BP 122/91
[2018-04-15] MEDS ORDERED: COR12 PO (12:50)
== END 2018-04-15 12:52 | disposition left against medical advice (07) | DRG 194 ==
LOC: ER 13:08 → 8WST 16:53 → EDBEDREQ 16:54 → EDBEDREQTM 16:54 → ENRESERV 20:16 → MICUSO 04-11 10:05 → 5EST 04-14 10:35
PROVIDERS: ADMIT Internal Medicine; ATTEND Internal Medicine
PROC: 5A1D70Z Performance of Urinary Filtration, Intermittent, Less than 6 Hours Per Day (ICD-10-PCS; 2018-04-11)
PROC: 02HV33Z Insertion of Infusion Device into Superior Vena Cava, Percutaneous Approach (ICD-10-PCS; principal; 2018-04-12)
PROC: B548ZZA Ultrasonography of Superior Vena Cava, Guidance (ICD-10-PCS; 2018-04-12)
PROC: 5A1D70Z Performance of Urinary Filtration, Intermittent, Less than 6 Hours Per Day (ICD-10-PCS; 2018-04-12)
PROC: 30233N1 Transfusion of Nonautologous Red Blood Cells into Peripheral Vein, Percutaneous Approach (ICD-10-PCS; 2018-04-13)
PROC: 5A1D70Z Performance of Urinary Filtration, Intermittent, Less than 6 Hours Per Day (ICD-10-PCS; 2018-04-15)
DX: I13.2 Hypertensive heart and chronic kidney disease with heart failure and with stage 5 chronic kidney disease, or end stage renal disease (principal); R57.9 Shock, unspecified; E87.2 Acidosis; E44.0 Moderate protein-calorie malnutrition; I27.20 Pulmonary hypertension, unspecified; N18.6 End stage renal disease; I42.0 Dilated cardiomyopathy; I48.4 Atypical atrial flutter; I48.92 Unspecified atrial flutter; I48.0 Paroxysmal atrial fibrillation; B37.3 Candidiasis of vulva and vagina; I50.21 Acute systolic (congestive) heart failure; R07.89 Other chest pain; D63.8 Anemia in other chronic diseases classified elsewhere; E16.2 Hypoglycemia, unspecified; F14.90 Cocaine use, unspecified, uncomplicated; D72.829 Elevated white blood cell count, unspecified; I49.3 Ventricular premature depolarization; J98.01 Acute bronchospasm; Z99.2 Dependence on renal dialysis; Z68.25 Body mass index [BMI] 25.0-25.9, adult; Z88.0 Allergy status to penicillin
CPT/HCPCS: 36415; 36569; 71045; 76937; 80048; 80150; 80202; 82550; 82553; 82962; 83540; 83550; 83605; 83735; 84100; 84145; 84484; 84703; 86850; 86900; 86920; 90585; 90686; 93005; 94640; 96374; 96375; 97162; 99291; C1725; C1769; J0278; J0692; J0885; J1200; J1580; J1644; J2270; J2405; J3370; J3490; J7040; J7050; J7060; J7611; J7620; P9016

== ENCOUNTER 2018-04-25 22:29 | Emergency (ER) | payer MEDICAID ==
[~2018-04-25] VITALS: Ht 167.6 cm; Wt 82.0 kg
[~2018-04-25 22:29] MED LIST: COR12 PO
[2018-04-26 02:46] LABS: BASOPHILS % 1.1 % (0.0-2.0); EOSINOPHILS % 0.6 % (0.0-5.0); HEMATOCRIT. 35.9 % (36.0-48.0); LYMPHOCYTES % 17.3 % (20.0-50.0); MEAN CORPUSCULAR VOLUME 95.1 fL (81.0-99.0); MEAN PLATELET VOLUME 10.9 fl (7.4-10.4); MONOCYTES % 6.4 % (2.0-8.0); NEUTROPHILS % 74.6 % (40.0-76.0); PLATELET 179 x1000/uL (130-400); RED BLOOD CELL COUNT 3.78 mill/uL (4.2-5.4); RED CELL DISTRIBUTION WIDTH 22.9 % (11.6-14.6)
[2018-04-26 03:12] LABS: PLATELET ESTIMATE NORMAL
[2018-04-26 04:07] LABS: CHLORIDE 99 mEq/L (98-107)
[2018-04-26] MEDS: ACETAMINOPHEN 500MG TABLET PO ONE ×2 (04:07→04:09)
[2018-04-26 05:24] VITALS: BP 129/97
== END 2018-04-26 06:28 | disposition home or self-care (01) ==
LOC: ER 22:29
DX: R10.32 Left lower quadrant pain (principal); R10.31 Right lower quadrant pain; F19.10 Other psychoactive substance abuse, uncomplicated; F17.200 Nicotine dependence, unspecified, uncomplicated; N18.6 End stage renal disease; Z99.2 Dependence on renal dialysis; F14.10 Cocaine abuse, uncomplicated; I25.2 Old myocardial infarction; Z95.0 Presence of cardiac pacemaker; Z88.0 Allergy status to penicillin; Z88.6 Allergy status to analgesic agent; Z98.890 Other specified postprocedural states
CPT/HCPCS: 36415; 74176; 80053; 83690; 85025; 93005; 99284; C1893; Z7610

== ENCOUNTER 2018-05-20 08:30 | Inpatient (IN) | payer MEDICAID ==
[~2018-05-20] VITALS: Ht 167.6 cm; Wt 63.5 kg
[2018-05-20 09:30] LABS: BASOPHILS % 0.9 % (0.0-2.0); EOSINOPHILS % 0.1 % (0.0-5.0); HEMATOCRIT. 29.8 % (36.0-48.0); HEMOGLOBIN. 9.3 g/dL (12.0-16.0); LYMPHOCYTES % 16.5 % (20.0-50.0); MEAN CORPUSCULAR HEMOGLOBIN 28.8 pg (28.0-32.0); MEAN CORPUSCULAR VOLUME 91.9 fL (81.0-99.0); MEAN PLATELET VOLUME 9.5 fl (7.4-10.4); MONOCYTES % 5.4 % (2.0-8.0); NEUTROPHILS % 77.1 % (40.0-76.0); PLATELET 169 x1000/uL (130-400); RED BLOOD CELL COUNT 3.24 mill/uL (4.2-5.4); RED CELL DISTRIBUTION WIDTH 19.9 % (11.6-14.6)
[2018-05-20 09:38] LABS: CHLORIDE 94 mEq/L (98-107); INR 1.3; PROTHROMBIN TIME 12.9 sec (9.1-11.1)
[2018-05-20] MEDS ORDERED: SODIUM POLYSTYRENE SULFONATE 15 G/60 ML BOT PO ONE (10:15)
[2018-05-20] MEDS ORDERED: DEXTROSE 50% WATER 50ML SYRINGE IV ONE (10:15)
[2018-05-20] MEDS ORDERED: INSULIN REGULAR (HUMULIN R) 300UNITS/3ML IV ONE (10:15)
[2018-05-20] MEDS ORDERED: ASPIRIN 81MG TABLET PO ONE (10:30)
[2018-05-20] MEDS: ALBUTEROL (0.083%) 2.5MG/3ML NEB HHN SCH ×3 (10:30→14:00)
[2018-05-20] MEDS ORDERED: MAGNESIUM/ALUMINUM HYDROXIDE/SIMETHICONE 30ML UDC PO PRN (11:00)
[2018-05-20] MEDS ORDERED: IPRATROPIUM/ALBUTEROL 0.5-3(2.5)MG/3ML NEB INH PRN (11:00)
[2018-05-20] MEDS ORDERED: CLONIDINE 0.1MG TABLET PO PRN (11:00)
[2018-05-20] MEDS ORDERED: FUROSEMIDE 40MG/4ML VIAL IV SCH (11:00)
[2018-05-20] MEDS ORDERED: ACETAMINOPHEN 325MG TABLET PO PRN (11:00)
[2018-05-20 12:14] LABS: PHOSPHORUS 7.6 mg/dL (2.5-4.9)
[2018-05-20] MEDS ORDERED: SODIUM BICARBONATE 4% (2.4MEQ) 5ML VIAL IV ONE (13:04)
[2018-05-20] MEDS ORDERED: LIDOCAINE HCL 1% 20ML VIAL (Pyxis) INJ ONE (13:04)
[2018-05-20] MEDS ORDERED: FUROSEMIDE 40MG/4ML VIAL IV NR (15:45)
[2018-05-20] MEDS: ONDANSETRON HCL 4MG/2ML INJ IV PRN ×2 (15:47→23:15)
[2018-05-20] MEDS: HYDROCODONE/ACETAMINOPHEN 5/325MG TABLET PO PRN (15:48)
[2018-05-20 17:13] LABS: CREATINE KINASE MB FRACTION 2.2 ng/mL (0.5-3.6)
[2018-05-20 21:42] LABS: *AMPHETAMINES SCREEN URINE NEGATIVE (NEGATIVE); CANNABINOID URINE SCREEN NEGATIVE (NEGATIVE); METHADONE URINE SCREEN NEGATIVE (NEGATIVE); PHENCYCLIDINE URINE SCREEN NEGATIVE (NEGATIVE)
[2018-05-20 21:43] LABS: *BARBITURATES SCREEN URINE NEGATIVE (NEGATIVE); *BENZODIAZEPINES SCREEN URINE NEGATIVE (NEGATIVE); *COCAINE SCREEN URINE PRESUMTIVE POSITIVE (NEGATIVE); OPIATES URINE SCREEN PRESUMTIVE POSITIVE (NEGATIVE)
[2018-05-20 22:00] VITALS: BP 120/80
[2018-05-20] MEDS ORDERED: EPOETIN ALFA 4000UNITS/ML VIAL SUBCUT NR (23:00)
[2018-05-21] VITALS: BP 118/100
[2018-05-21] MEDS: DIPHENHYDRAMINE 50MG/ML VIAL IV PRN ×3 (01:13→20:48)
[2018-05-21] MEDS: ZOLPIDEM TARTRATE 5MG TABLET PO PRN ×2 (01:14→20:40)
[2018-05-21] MEDS: BENAZEPRIL 5MG TABLET PO SCH ×3 (01:27→20:39)
[2018-05-21] MEDS: IRON SUCROSE COMPLEX 100 MG/5 ML ML IV SCH (01:32)
[2018-05-21 04:00] VITALS: BP 115/86
[2018-05-21] MEDS: FUROSEMIDE 40MG/4ML VIAL IV SCH ×2 (06:00→17:30)
[2018-05-21 06:32] LABS: BASOPHILS % 0.6 % (0.0-2.0); EOSINOPHILS % 0.2 % (0.0-5.0); HEMATOCRIT. 26.7 % (36.0-48.0); HEMOGLOBIN. 8.5 g/dL (12.0-16.0); LYMPHOCYTES % 23.1 % (20.0-50.0); MEAN CORPUSCULAR VOLUME 91.6 fL (81.0-99.0); MEAN PLATELET VOLUME 10.1 fl (7.4-10.4); MONOCYTES % 6.4 % (2.0-8.0); NEUTROPHILS % 69.7 % (40.0-76.0); PLATELET 163 x1000/uL (130-400); RED BLOOD CELL COUNT 2.92 mill/uL (4.2-5.4); RED CELL DISTRIBUTION WIDTH 19.9 % (11.6-14.6)
[2018-05-21 06:42] LABS: CHLORIDE 99 mEq/L (98-107)
[2018-05-21] MEDS: ONDANSETRON HCL 4MG/2ML INJ IV PRN ×2 (06:50→17:30)
[2018-05-21] MEDS: HYDROCODONE/ACETAMINOPHEN 5/325MG TABLET PO PRN ×2 (06:50→14:09)
[2018-05-21 07:09] LABS: CREATINE KINASE 81 IU/L (26-192); HDL CHOLESTEROL 40 mg/dL (40-59); LDL CHOLESTEROL 58 mg/dL (5-100)
[2018-05-21 07:12] LABS: CREATINE KINASE MB FRACTION 2.4 ng/mL (0.5-3.6)
[2018-05-21] MEDS ORDERED: DEXTROSE 50% WATER 50ML SYRINGE IV PRN (08:00)
[2018-05-21] MEDS: INSULIN LISPRO 100 UNITS/ML SUBCUT SCH ×4 (08:10→20:49)
[2018-05-21 08:15] VITALS: BP 121/85
[2018-05-21] MEDS: BLOOD SUGAR DIAGNOSTIC STRIP TEST SCH ×4 (08:37→20:48)
[2018-05-21 12:00] VITALS: BP 126/93
[2018-05-21 16:00] VITALS: BP 135/88
[2018-05-21 20:00] VITALS: BP 108/65
[2018-05-22] VITALS: BP 95/73
[2018-05-22] MEDS: HYDROCODONE/ACETAMINOPHEN 5/325MG TABLET PO PRN ×2 (00:35→11:57)
[2018-05-22] MEDS ORDERED: EPOETIN ALFA 10000UNITS/ML VIAL SUBCUT SCH ×2 (03:00→21:00)
[2018-05-22 04:00] VITALS: BP 119/59
[2018-05-22] MEDS: INSULIN LISPRO 100 UNITS/ML SUBCUT SCH ×3 (06:08→17:13)
[2018-05-22] MEDS: BLOOD SUGAR DIAGNOSTIC STRIP TEST SCH ×3 (06:08→17:13)
[2018-05-22] MEDS: FUROSEMIDE 40MG/4ML VIAL IV SCH ×2 (06:08→17:10)
[2018-05-22 08:00] VITALS: BP 121/86
[2018-05-22] MEDS: DIPHENHYDRAMINE 50MG/ML VIAL IV PRN (08:45)
[2018-05-22] MEDS: BENAZEPRIL 5MG TABLET PO SCH (08:50)
[2018-05-22] MEDS: IRON SUCROSE COMPLEX 100 MG/5 ML ML IV SCH (08:50)
[2018-05-22] MEDS ORDERED: CARVEDILOL 6.25 MG TABLET PO SCH (09:00)
[2018-05-22 12:00] VITALS: BP 129/90
[2018-05-22 15:10] VITALS: BP 129/90
[2018-05-22 16:00] VITALS: BP 136/79
== END 2018-05-22 19:45 | disposition home or self-care (01) | DRG 194 ==
LOC: ER 08:30 → 7WST 10:53 → EDBEDREQ 11:00 → ENRESERV 20:42
PROVIDERS: ADMIT Internal Medicine; ATTEND Internal Medicine
PROC: 02HV33Z Insertion of Infusion Device into Superior Vena Cava, Percutaneous Approach (ICD-10-PCS; principal; 2018-05-20)
PROC: B548ZZA Ultrasonography of Superior Vena Cava, Guidance (ICD-10-PCS; 2018-05-20)
DX: I13.2 Hypertensive heart and chronic kidney disease with heart failure and with stage 5 chronic kidney disease, or end stage renal disease (principal); E46 Unspecified protein-calorie malnutrition; N18.6 End stage renal disease; I42.0 Dilated cardiomyopathy; E83.39 Other disorders of phosphorus metabolism; E83.41 Hypermagnesemia; E87.5 Hyperkalemia; I07.1 Rheumatic tricuspid insufficiency; I48.92 Unspecified atrial flutter; I50.23 Acute on chronic systolic (congestive) heart failure; D63.8 Anemia in other chronic diseases classified elsewhere; F14.10 Cocaine abuse, uncomplicated; Z91.15 Patient's noncompliance with renal dialysis; Z99.2 Dependence on renal dialysis; Z91.19 Patient's noncompliance with other medical treatment and regimen; Z88.6 Allergy status to analgesic agent; Z88.0 Allergy status to penicillin; Z79.899 Other long term (current) drug therapy; I25.2 Old myocardial infarction; Z71.51 Drug abuse counseling and surveillance of drug abuser; Z68.22 Body mass index [BMI] 22.0-22.9, adult
CPT/HCPCS: 36415; 36569; 71045; 76937; 80048; 80061; 80305; 82550; 82553; 82962; 83036; 83735; 83880; 84100; 84443; 84484; 85379; 93005; 93970; 94640; 96374; 96375; 97162; 97166; 99291; C1725; J0885; J1200; J1815; J1940; J2405; J3490; J7611

== ENCOUNTER 2018-07-07 14:20 | Inpatient (IN) | payer MEDICAID ==
[~2018-07-07] VITALS: Ht 167.6 cm; Wt 61.2 kg
[2018-07-07] MEDS ORDERED: NITROGLYCERIN OINT 1GM/INCH UDPKT TD ONE (15:30)
[2018-07-07] MEDS ORDERED: ASPIRIN 81MG TABLET PO ONE (15:30)
[2018-07-07] MEDS ORDERED: ACETAMINOPHEN WITH CODEINE 120-12MG/5ML UDC PO ONE (15:30)
[2018-07-07 15:40] LABS: BASOPHILS % 0.8 % (0.0-2.0); EOSINOPHILS % 0.4 % (0.0-5.0); HEMATOCRIT. 33.7 % (36.0-48.0); HEMOGLOBIN. 10.3 g/dL (12.0-16.0); LYMPHOCYTES % 21.8 % (20.0-50.0); MEAN CORPUSCULAR HEMOGLOBIN 29.5 pg (28.0-32.0); MEAN CORPUSCULAR VOLUME 96.1 fL (81.0-99.0); MEAN PLATELET VOLUME 10.1 fl (7.4-10.4); MONOCYTES % 6.2 % (2.0-8.0); NEUTROPHILS % 70.8 % (40.0-76.0); PLATELET 119 x1000/uL (130-400); RED CELL DISTRIBUTION WIDTH 22.2 % (11.6-14.6)
[2018-07-07 15:41] LABS: INR 1.2; PARTIAL THROMBOPLASTIN TIME 27.9 sec (23.4-31.0)
[2018-07-07 15:50] LABS: CHLORIDE 103 mEq/L (98-107)
[2018-07-07 15:55] LABS: BG BASE EXCESS -5.6 mmol/L (-2.0-2.0); BG CARBOXYHEMOGLOBIN 1.4 % (0.5-1.5); BG FRACTION INSPIRED OXYGEN 21; BG HCO3 ACT 17.2 mmol/L (22.0-26.0); BG METHEMOGLOBIN 0.2 % (0.0-1.5); BG OXYHEMOGLOBIN 96.4 % (94.0-97.0); BG PCO2 25.9 mmHg (35.0-45.0); BG PO2 107.8 mmHg (75.0-100.0); BG SAMPLE SITE RIGHT RADIAL; BG VENT MODE ROOM AIR
[2018-07-07 15:58] LABS: PHOSPHORUS 4.4 mg/dL (2.5-4.9)
[2018-07-07 16:01] LABS: HCG SCREEN NEGATIVE
[2018-07-07 16:39] LABS: PLATELET ESTIMATE DECREASED
[2018-07-07] MEDS: KETOROLAC 30MG/ML VIAL IV PRN (22:48)
[2018-07-07 23:00] VITALS: BP_SYST 130; BP_SYST 136; BP_DIAS 79
[2018-07-07] MEDS ORDERED: CARVEDILOL 12.5MG TABLET PO NR (23:00)
[2018-07-07] MEDS: DIPHENHYDRAMINE 50MG/ML VIAL IV PRN (23:19)
[2018-07-07] MEDS ORDERED: CLONIDINE 0.1MG TABLET PO PRN (23:30)
[2018-07-07] MEDS ORDERED: DEXTROSE 50% WATER 50ML SYRINGE IV PRN (23:30)
[2018-07-07] MEDS: BLOOD SUGAR DIAGNOSTIC STRIP TEST SCH (23:30)
[2018-07-07] MEDS: INSULIN LISPRO 100 UNITS/ML SUBCUT SCH (23:30)
[2018-07-08] VITALS: BP 132/80
[2018-07-08] MEDS: ONDANSETRON HCL 4MG/2ML INJ IV PRN ×2 (00:46→19:07)
[2018-07-08] MEDS: HYDROCODONE/ACETAMINOPHEN 5/325MG TABLET PO PRN ×2 (02:11→21:32)
[2018-07-08 04:00] VITALS: BP 140/84
[2018-07-08] MEDS: KETOROLAC 30MG/ML VIAL IV PRN ×2 (04:07→11:02)
[2018-07-08] MEDS: DIPHENHYDRAMINE 50MG/ML VIAL IV PRN ×3 (04:38→22:39)
[2018-07-08] MEDS: BLOOD SUGAR DIAGNOSTIC STRIP TEST SCH ×4 (07:28→21:00)
[2018-07-08] MEDS: INSULIN LISPRO 100 UNITS/ML SUBCUT SCH ×4 (07:28→21:00)
[2018-07-08 08:00] VITALS: BP 100/66
[2018-07-08] MEDS: CARVEDILOL 12.5MG TABLET PO SCH ×2 (09:00→21:00)
[2018-07-08] MEDS ORDERED: HYDROMORPHONE HCL/PF 2MG/ML CPJ IV NR (10:15)
[2018-07-08 10:46] LABS: BASOPHILS % 1.2 % (0.0-2.0); EOSINOPHILS % 0.6 % (0.0-5.0); HEMOGLOBIN. 9.7 g/dL (12.0-16.0); LYMPHOCYTES % 25.7 % (20.0-50.0); MEAN CORPUSCULAR HEMOGLOBIN 29.6 pg (28.0-32.0); MEAN PLATELET VOLUME 9.9 fl (7.4-10.4); MONOCYTES % 5.3 % (2.0-8.0); NEUTROPHILS % 67.2 % (40.0-76.0); PLATELET 113 x1000/uL (130-400); RED BLOOD CELL COUNT 3.26 mill/uL (4.2-5.4); RED CELL DISTRIBUTION WIDTH 21.8 % (11.6-14.6)
[2018-07-08 10:56] LABS: CHLORIDE 100 mEq/L (98-107)
[2018-07-08 11:04] LABS: LDL CHOLESTEROL 41 mg/dL (5-100)
[2018-07-08 11:06] LABS: HDL CHOLESTEROL 39 mg/dL (40-59)
[2018-07-08 12:09] VITALS: BP 104/69
[2018-07-08] MEDS: HYDROMORPHONE HCL/PF 2MG/ML CPJ IV PRN (14:52)
[2018-07-08 16:23] VITALS: BP 104/71
[2018-07-08 20:00] VITALS: BP 143/89
[2018-07-09] MEDS: HYDROMORPHONE HCL/PF 2MG/ML CPJ IV PRN ×2 (01:36→06:41)
[2018-07-09 04:00] VITALS: BP 156/96
[2018-07-09] MEDS: HYDROCODONE/ACETAMINOPHEN 5/325MG TABLET PO PRN (04:13)
[2018-07-09] MEDS: BLOOD SUGAR DIAGNOSTIC STRIP TEST SCH ×5 (06:47→20:28)
[2018-07-09] MEDS: INSULIN LISPRO 100 UNITS/ML SUBCUT SCH ×4 (06:48→20:28)
[2018-07-09 07:15] LABS: BASOPHILS % 0.6 % (0.0-2.0); EOSINOPHILS % 0.1 % (0.0-5.0); HEMOGLOBIN. 9.7 g/dL (12.0-16.0); LYMPHOCYTES % 19.3 % (20.0-50.0); MEAN CORPUSCULAR HEMOGLOBIN 29.8 pg (28.0-32.0); MEAN CORPUSCULAR VOLUME 95.8 fL (81.0-99.0); MEAN PLATELET VOLUME 10.1 fl (7.4-10.4); MONOCYTES % 6.1 % (2.0-8.0); NEUTROPHILS % 73.9 % (40.0-76.0); PLATELET 130 x1000/uL (130-400); RED BLOOD CELL COUNT 3.24 mill/uL (4.2-5.4); RED CELL DISTRIBUTION WIDTH 22.2 % (11.6-14.6)
[2018-07-09] MEDS: DIPHENHYDRAMINE 50MG/ML VIAL IV PRN (08:44)
[2018-07-09] MEDS: CARVEDILOL 12.5MG TABLET PO SCH ×2 (08:45→21:00)
[2018-07-09] MEDS: ASPIRIN 81MG TABLET PO SCH (10:05)
[2018-07-09] MEDS: LOSARTAN POTASSIUM 50 MG TABLET PO SCH (10:05)
[2018-07-09] MEDS: ENOXAPARIN 30MG/0.3ML SYR SUBCUT SCH (10:06)
[2018-07-09] MEDS ORDERED: MAGNESIUM HYDROXIDE 400MG/5ML 30ML UDC PO PRN (13:15)
[2018-07-09] MEDS ORDERED: BISACODYL 10MG SUPP PR PRN (13:15)
[2018-07-09 20:00] VITALS: BP 92/64
[2018-07-10] VITALS (7 sets, daily range): BP systolic 95–112; BP diastolic 66–71
[2018-07-10] MEDS: INSULIN LISPRO 100 UNITS/ML SUBCUT SCH ×4 (06:25→21:00)
[2018-07-10 07:11] LABS: BASOPHILS % 0.5 % (0.0-2.0); EOSINOPHILS % 0.5 % (0.0-5.0); HEMATOCRIT. 31.8 % (36.0-48.0); HEMOGLOBIN. 9.6 g/dL (12.0-16.0); LYMPHOCYTES % 18.2 % (20.0-50.0); MEAN CORPUSCULAR HEMOGLOBIN 29.3 pg (28.0-32.0); MEAN CORPUSCULAR VOLUME 97.2 fL (81.0-99.0); MEAN PLATELET VOLUME 10.2 fl (7.4-10.4); MONOCYTES % 8.5 % (2.0-8.0); NEUTROPHILS % 72.3 % (40.0-76.0); PLATELET 123 x1000/uL (130-400); RED BLOOD CELL COUNT 3.27 mill/uL (4.2-5.4)
[2018-07-10] MEDS: CARVEDILOL 12.5MG TABLET PO SCH ×2 (08:17→21:00)
[2018-07-10] MEDS: LOSARTAN POTASSIUM 50 MG TABLET PO SCH (08:17)
[2018-07-10] MEDS: ENOXAPARIN 30MG/0.3ML SYR SUBCUT SCH (09:00)
[2018-07-10] MEDS: ASPIRIN 81MG TABLET PO SCH (09:00)
[2018-07-10] MEDS: BLOOD SUGAR DIAGNOSTIC STRIP TEST SCH ×3 (12:20→21:07)
[2018-07-10] MEDS: HYDROMORPHONE HCL/PF 2MG/ML CPJ IV PRN (17:54)
[2018-07-10] MEDS: ONDANSETRON HCL 4MG/2ML INJ IV PRN (20:38)
[2018-07-10] MEDS: MEGESTROL ACETATE 400 MG/10 ML UDC PO SCH (20:38)
[2018-07-10] MEDS: DIPHENHYDRAMINE 50MG/ML VIAL IV PRN (20:39)
[2018-07-10] MEDS ORDERED: EPOETIN ALFA 10000UNITS/ML VIAL SUBCUT NR (21:00)
[2018-07-10] MEDS: IRON SUCROSE COMPLEX 100 MG/5 ML ML IV SCH (21:06)
[2018-07-11] VITALS: BP 100/71
[2018-07-11] MEDS: HYDROMORPHONE HCL/PF 2MG/ML CPJ IV PRN ×2 (00:49→06:43)
[2018-07-11 04:00] VITALS: BP 143/92
[2018-07-11 06:05] LABS: BASOPHILS % 0.6 % (0.0-2.0); EOSINOPHILS % 0.2 % (0.0-5.0); HEMATOCRIT. 38.6 % (36.0-48.0); HEMOGLOBIN. 11.6 g/dL (12.0-16.0); LYMPHOCYTES % 20.6 % (20.0-50.0); MEAN CORPUSCULAR HEMOGLOBIN 29.4 pg (28.0-32.0); MEAN CORPUSCULAR VOLUME 97.4 fL (81.0-99.0); MEAN PLATELET VOLUME 9.6 fl (7.4-10.4); MONOCYTES % 4.7 % (2.0-8.0); NEUTROPHILS % 73.9 % (40.0-76.0); PLATELET 168 x1000/uL (130-400); RED BLOOD CELL COUNT 3.96 mill/uL (4.2-5.4); RED CELL DISTRIBUTION WIDTH 22.3 % (11.6-14.6)
[2018-07-11] MEDS: DIPHENHYDRAMINE 50MG/ML VIAL IV PRN ×2 (06:19→17:43)
[2018-07-11] MEDS: BLOOD SUGAR DIAGNOSTIC STRIP TEST SCH ×4 (07:10→20:56)
[2018-07-11] MEDS: INSULIN LISPRO 100 UNITS/ML SUBCUT SCH ×4 (07:40→20:55)
[2018-07-11 08:00] VITALS: BP 110/82
[2018-07-11] MEDS: LOSARTAN POTASSIUM 50 MG TABLET PO SCH (08:37)
[2018-07-11] MEDS: CARVEDILOL 12.5MG TABLET PO SCH ×3 (08:37→20:54)
[2018-07-11] MEDS: MEGESTROL ACETATE 400 MG/10 ML UDC PO SCH ×2 (08:53→17:43)
[2018-07-11] MEDS: ENOXAPARIN 30MG/0.3ML SYR SUBCUT SCH (08:53)
[2018-07-11] MEDS: ONDANSETRON HCL 4MG/2ML INJ IV PRN ×2 (08:53→13:57)
[2018-07-11] MEDS: ASPIRIN 81MG TABLET PO SCH (08:53)
[2018-07-11 12:28] VITALS: BP 110/65
[2018-07-11] MEDS: PANTOPRAZOLE SODIUM 40 MG/VIAL IV SCH ×2 (13:57→20:54)
[2018-07-11 16:00] VITALS: BP 99/73
[2018-07-11] MEDS: HYDROCODONE/ACETAMINOPHEN 5/325MG TABLET PO PRN (17:43)
[2018-07-11] MEDS ORDERED: HYDROCODONE/APAP 7.5/325MG 1 TAB TABLET PO PRN (17:45)
[2018-07-11] MEDS ORDERED: MEGE400O4 PO (18:39)
[2018-07-11] MEDS ORDERED: PANT40TA4 MT (18:39)
[2018-07-11] MEDS ORDERED: LOSA50TA3 PO (18:39)
[2018-07-11 20:00] VITALS: BP 98/70
[2018-07-11] MEDS: IRON SUCROSE COMPLEX 100 MG/5 ML ML IV SCH (20:54)
[2018-07-12] VITALS: BP 101/71
[2018-07-12 04:00] VITALS: BP 125/65
[2018-07-12 06:01] LABS: EOSINOPHILS % 0.7 % (0.0-5.0); HEMATOCRIT. 31.8 % (36.0-48.0); HEMOGLOBIN. 9.9 g/dL (12.0-16.0); LYMPHOCYTES % 25.2 % (20.0-50.0); MEAN CORPUSCULAR HEMOGLOBIN 29.8 pg (28.0-32.0); MEAN CORPUSCULAR VOLUME 95.4 fL (81.0-99.0); MEAN PLATELET VOLUME 9.7 fl (7.4-10.4); MONOCYTES % 7.2 % (2.0-8.0); NEUTROPHILS % 65.9 % (40.0-76.0); PLATELET 156 x1000/uL (130-400); RED BLOOD CELL COUNT 3.34 mill/uL (4.2-5.4); RED CELL DISTRIBUTION WIDTH 21.8 % (11.6-14.6)
[2018-07-12] MEDS: BLOOD SUGAR DIAGNOSTIC STRIP TEST SCH ×2 (07:14→12:10)
[2018-07-12] MEDS: INSULIN LISPRO 100 UNITS/ML SUBCUT SCH ×2 (07:14→12:40)
[2018-07-12 08:00] VITALS: BP 96/64
[2018-07-12] MEDS: MEGESTROL ACETATE 400 MG/10 ML UDC PO SCH ×2 (08:37→09:00)
[2018-07-12] MEDS: PANTOPRAZOLE SODIUM 40 MG/VIAL IV SCH (08:37)
[2018-07-12] MEDS: ENOXAPARIN 30MG/0.3ML SYR SUBCUT SCH (08:38)
[2018-07-12] MEDS: ASPIRIN 81MG TABLET PO SCH (08:39)
[2018-07-12] MEDS: LOSARTAN POTASSIUM 50 MG TABLET PO SCH ×2 (08:39→08:48)
[2018-07-12] MEDS: CARVEDILOL 12.5MG TABLET PO SCH (08:48)
[2018-07-12] MEDS ORDERED: EPOETIN ALFA 4000UNITS/ML VIAL SUBCUT NR (21:00)
== END 2018-07-12 13:40 | disposition left against medical advice (07) | DRG 282 ==
LOC: ER 14:20 → EDBEDREQ 15:03 → 8WST 15:37 → EDBEDREQTM 15:40 → EDBEDREQ 15:40 → ENRESERV 20:08
PROVIDERS: ADMIT Internal Medicine; ATTEND Internal Medicine
PROC: 5A1D70Z Performance of Urinary Filtration, Intermittent, Less than 6 Hours Per Day (ICD-10-PCS; principal; 2018-07-08)
PROC: 5A1D70Z Performance of Urinary Filtration, Intermittent, Less than 6 Hours Per Day (ICD-10-PCS; 2018-07-09)
PROC: 5A1D70Z Performance of Urinary Filtration, Intermittent, Less than 6 Hours Per Day (ICD-10-PCS; 2018-07-12)
DX: K85.90 Acute pancreatitis without necrosis or infection, unspecified (principal); I13.2 Hypertensive heart and chronic kidney disease with heart failure and with stage 5 chronic kidney disease, or end stage renal disease; I42.9 Cardiomyopathy, unspecified; E46 Unspecified protein-calorie malnutrition; N18.6 End stage renal disease; R18.8 Other ascites; E87.5 Hyperkalemia; R16.0 Hepatomegaly, not elsewhere classified; E87.70 Fluid overload, unspecified; K74.60 Unspecified cirrhosis of liver; K80.50 Calculus of bile duct without cholangitis or cholecystitis without obstruction; K21.0 Gastro-esophageal reflux disease with esophagitis; I48.91 Unspecified atrial fibrillation; D63.8 Anemia in other chronic diseases classified elsewhere; I50.9 Heart failure, unspecified; J98.11 Atelectasis; E78.5 Hyperlipidemia, unspecified; Z53.21 Procedure and treatment not carried out due to patient leaving prior to being seen by health care provider; F32.9 Major depressive disorder, single episode, unspecified; M46.87 Other specified inflammatory spondylopathies, lumbosacral region; G89.29 Other chronic pain; Z91.15 Patient's noncompliance with renal dialysis; Z91.19 Patient's noncompliance with other medical treatment and regimen; Z98.891 History of uterine scar from previous surgery; Z88.0 Allergy status to penicillin; Z88.5 Allergy status to narcotic agent; I25.2 Old myocardial infarction; Z99.2 Dependence on renal dialysis; Z71.51 Drug abuse counseling and surveillance of drug abuser; Z68.21 Body mass index [BMI] 21.0-21.9, adult
CPT/HCPCS: 36415; 36600; 71045; 72110; 74181; 76700; 80048; 80061; 82150; 82247; 82248; 82375; 82728; 82805; 82962; 83036; 83540; 83550; 83735; 84100; 84443; 84484; 84703; 86301; 93005; 93306; 93970; 96365; 96375; 99285; C1893; C9113; J0885; J1170; J1200; J1650; J1815; J1885; J2405

== ENCOUNTER 2018-07-18 23:13 | Inpatient (IN) | payer MEDICAID ==
[~2018-07-18] VITALS: Ht 167.6 cm; Wt 61.7 kg
[~2018-07-18 23:13] MED LIST changes: +LOSA50TA3 PO; +MEGE400O4 PO; +PANT40TA4 MT
[2018-07-19] MEDS ORDERED: MAGNESIUM 2 G PREMIX 50 ML IV ONE (00:30)
[2018-07-19] MEDS ORDERED: SODIUM CHLORIDE 0.9% 1000ML BAG (SEPSIS BOLUS) IV ONE (00:30)
[2018-07-19] MEDS ORDERED: CALCIUM GLUCONATE 100MG/ML 10ML VIAL IV ONE (00:30)
[2018-07-19 00:49] LABS: BASOPHILS % 0.8 % (0.0-2.0); EOSINOPHILS % 0.4 % (0.0-5.0); HEMATOCRIT. 39.1 % (36.0-48.0); HEMOGLOBIN. 11.9 g/dL (12.0-16.0); LYMPHOCYTES % 21.2 % (20.0-50.0); MEAN CORPUSCULAR HEMOGLOBIN 30.3 pg (28.0-32.0); MEAN CORPUSCULAR VOLUME 99.8 fL (81.0-99.0); MEAN PLATELET VOLUME 9.8 fl (7.4-10.4); MONOCYTES % 12.3 % (2.0-8.0); NEUTROPHILS % 65.3 % (40.0-76.0); PLATELET 112 x1000/uL (130-400); RED BLOOD CELL COUNT 3.92 mill/uL (4.2-5.4); RED CELL DISTRIBUTION WIDTH 23.1 % (11.6-14.6)
[2018-07-19 00:56] LABS: CHLORIDE 98 mEq/L (98-107)
[2018-07-19 00:57] LABS: INR 1.3; PARTIAL THROMBOPLASTIN TIME 30.6 sec (23.4-31.0); PROTHROMBIN TIME 12.7 sec (9.6-11.0)
[2018-07-19 01:00] LABS: ETHANOL BLOOD < 10 mg/dL
[2018-07-19] MEDS ORDERED: ASPIRIN 325MG EC TABLET PO NR (03:30)
[2018-07-19] MEDS ORDERED: ACETAMINOPHEN 500MG TABLET PO NR (05:00)
[2018-07-19] MEDS ORDERED: CLONIDINE 0.1MG TABLET PO PRN (10:45)
[2018-07-19] MEDS ORDERED: ACETAMINOPHEN 325MG TABLET PO PRN (10:45)
[2018-07-19] MEDS: ONDANSETRON HCL 4MG/2ML INJ IV PRN ×3 (10:52→23:19)
[2018-07-19] MEDS: FAMOTIDINE 20MG/2ML VIAL IV SCH (10:52)
[2018-07-19 11:03] VITALS: BP 112/78
[2018-07-19 12:00] VITALS: BP 112/82
[2018-07-19] MEDS: SODIUM CHLORIDE 0.9% INJ 3ML FLUSH IVF SCH ×2 (13:44→23:11)
[2018-07-19] MEDS: MORPHINE SULFATE 2 MG/ML CPJ (NOT FOR IM USE) IV PRN ×2 (14:41→23:11)
[2018-07-19 16:00] VITALS: BP 117/89
[2018-07-19] MEDS: DOCUSATE SODIUM 100MG CAPSULE PO SCH (17:31)
[2018-07-19] MEDS: SEVELAMER CARBONATE 800 MG TABLET PO SCH (17:31)
[2018-07-19 20:00] VITALS: BP 122/99
[2018-07-19 23:01] VITALS: BP 127/91
[2018-07-19] MEDS: CARVEDILOL 3.125 MG TABLET PO SCH (23:10)
[2018-07-19] MEDS: SUCRALFATE 1 G/10 ML UDC PO SCH (23:45)
[2018-07-20] VITALS: BP 115/81
[2018-07-20 04:00] VITALS: BP 103/73
[2018-07-20] MEDS: SODIUM CHLORIDE 0.9% INJ 3ML FLUSH IVF SCH ×3 (05:53→21:19)
[2018-07-20] MEDS: MORPHINE SULFATE 2 MG/ML CPJ (NOT FOR IM USE) IV PRN ×3 (05:54→21:17)
[2018-07-20] MEDS: SUCRALFATE 1 G/10 ML UDC PO SCH ×4 (05:54→21:18)
[2018-07-20] MEDS: ONDANSETRON HCL 4MG/2ML INJ IV PRN (06:02)
[2018-07-20 08:00] VITALS: BP 103/66
[2018-07-20] MEDS: CARVEDILOL 3.125 MG TABLET PO SCH ×2 (08:58→21:00)
[2018-07-20] MEDS: DOCUSATE SODIUM 100MG CAPSULE PO SCH ×2 (09:02→17:00)
[2018-07-20] MEDS: SEVELAMER CARBONATE 800 MG TABLET PO SCH ×3 (09:02→17:11)
[2018-07-20] MEDS: FAMOTIDINE 20MG/2ML VIAL IV SCH (09:02)
[2018-07-20 12:00] VITALS: BP 112/77
[2018-07-20 16:00] VITALS: BP 99/63
[2018-07-20 20:00] VITALS: BP 105/81
[2018-07-21] VITALS: BP 115/89
[2018-07-21] MEDS: ONDANSETRON HCL 4MG/2ML INJ IV PRN (00:04)
[2018-07-21 04:00] VITALS: BP 102/76
[2018-07-21] MEDS: MORPHINE SULFATE 2 MG/ML CPJ (NOT FOR IM USE) IV PRN (04:35)
[2018-07-21] MEDS: SODIUM CHLORIDE 0.9% INJ 3ML FLUSH IVF SCH ×2 (05:54→13:09)
[2018-07-21] MEDS: SUCRALFATE 1 G/10 ML UDC PO SCH ×4 (05:54→20:17)
[2018-07-21 08:00] VITALS: BP 107/75
[2018-07-21] MEDS: CARVEDILOL 3.125 MG TABLET PO SCH ×2 (09:00→20:18)
[2018-07-21] MEDS: FAMOTIDINE 20MG/2ML VIAL IV SCH (09:04)
[2018-07-21] MEDS: SEVELAMER CARBONATE 800 MG TABLET PO SCH ×3 (09:04→17:00)
[2018-07-21] MEDS: DOCUSATE SODIUM 100MG CAPSULE PO SCH ×2 (09:04→17:00)
[2018-07-21 14:36] VITALS: BP 113/80
[2018-07-21 16:00] VITALS: BP 104/72
[2018-07-21] MEDS ORDERED: ONDANSETRON 4MG ODT PO PRN (17:45)
[2018-07-21] MEDS: ACETAMINOPHEN 650MG/20.3ML UDC PO PRN (18:09)
[2018-07-21 20:00] VITALS: BP 102/78
[2018-07-22 04:00] VITALS: BP 144/60
[2018-07-22] MEDS: ACETAMINOPHEN 650MG/20.3ML UDC PO PRN ×2 (06:23→16:33)
[2018-07-22] MEDS: SUCRALFATE 1 G/10 ML UDC PO SCH ×4 (06:23→20:35)
[2018-07-22 07:16] LABS: BASOPHILS % 0.7 % (0.0-2.0); EOSINOPHILS % 0.2 % (0.0-5.0); HEMATOCRIT. 41.3 % (36.0-48.0); HEMOGLOBIN. 12.4 g/dL (12.0-16.0); LYMPHOCYTES % 17.8 % (20.0-50.0); MEAN CORPUSCULAR HEMOGLOBIN 30.7 pg (28.0-32.0); MEAN PLATELET VOLUME 10.7 fl (7.4-10.4); MONOCYTES % 9.8 % (2.0-8.0); NEUTROPHILS % 71.5 % (40.0-76.0); PLATELET 99 x1000/uL (130-400); RED BLOOD CELL COUNT 4.05 mill/uL (4.2-5.4); RED CELL DISTRIBUTION WIDTH 22.9 % (11.6-14.6)
[2018-07-22 08:00] VITALS: BP 130/84
[2018-07-22] MEDS: CARVEDILOL 3.125 MG TABLET PO SCH ×2 (09:00→20:35)
[2018-07-22] MEDS: FAMOTIDINE 20MG TABLET PO SCH (09:00)
[2018-07-22] MEDS: SEVELAMER CARBONATE 800 MG TABLET PO SCH ×3 (09:00→17:00)
[2018-07-22] MEDS: DOCUSATE SODIUM 100MG CAPSULE PO SCH ×2 (09:00→17:00)
[2018-07-22 12:00] VITALS: BP 131/81
[2018-07-22 12:15] LABS: CANNABINOID URINE SCREEN NEGATIVE (NEGATIVE); PHENCYCLIDINE URINE SCREEN NEGATIVE (NEGATIVE)
[2018-07-22 12:16] LABS: *AMPHETAMINES SCREEN URINE NEGATIVE (NEGATIVE); *BARBITURATES SCREEN URINE NEGATIVE (NEGATIVE); *BENZODIAZEPINES SCREEN URINE NEGATIVE (NEGATIVE); *COCAINE SCREEN URINE NEGATIVE (NEGATIVE); METHADONE URINE SCREEN NEGATIVE (NEGATIVE); OPIATES URINE SCREEN NEGATIVE (NEGATIVE)
[2018-07-22 16:00] VITALS: BP 107/68
[2018-07-22 20:00] VITALS: BP 106/67
[2018-07-23] VITALS (9 sets, daily range): BP systolic 97–133; BP diastolic 61–84
[2018-07-23] MEDS: ACETAMINOPHEN 650MG/20.3ML UDC PO PRN ×2 (01:27→06:25)
[2018-07-23] MEDS: SUCRALFATE 1 G/10 ML UDC PO SCH ×4 (06:25→21:13)
[2018-07-23 06:43] LABS: BASOPHILS % 0.3 % (0.0-2.0); EOSINOPHILS % 0.5 % (0.0-5.0); HEMATOCRIT. 30.8 % (36.0-48.0); HEMOGLOBIN. 9.9 g/dL (12.0-16.0); LYMPHOCYTES % 11.7 % (20.0-50.0); MEAN CORPUSCULAR HEMOGLOBIN 30.9 pg (28.0-32.0); MEAN CORPUSCULAR VOLUME 96.4 fL (81.0-99.0); MEAN PLATELET VOLUME 10.1 fl (7.4-10.4); MONOCYTES % 6.8 % (2.0-8.0); NEUTROPHILS % 80.7 % (40.0-76.0); PLATELET 85 x1000/uL (130-400); RED CELL DISTRIBUTION WIDTH 23.3 % (11.6-14.6)
[2018-07-23 06:57] LABS: CHLORIDE 106 mEq/L (98-107)
[2018-07-23 07:12] LABS: CREATINE KINASE 44 IU/L (26-192)
[2018-07-23] MEDS: DOCUSATE SODIUM 100MG CAPSULE PO SCH ×2 (09:00→17:08)
[2018-07-23] MEDS ORDERED: CARVEDILOL 12.5MG TABLET PO SCH (09:00)
[2018-07-23] MEDS: SEVELAMER CARBONATE 800 MG TABLET PO SCH ×3 (09:24→17:08)
[2018-07-23] MEDS: FAMOTIDINE 20MG TABLET PO SCH (09:24)
[2018-07-23] MEDS: MIDODRINE HCL 5MG TABLET PO SCH ×3 (10:42→17:08)
[2018-07-23] MEDS: CARVEDILOL 3.125 MG TABLET PO SCH ×2 (10:42→21:13)
[2018-07-23] MEDS: TRAMADOL 50MG TABLET PO PRN (10:43)
[2018-07-23 11:54] LABS: AMYLASE 182 IU/L (25-115)
[2018-07-23] MEDS ORDERED: AMIODARONE HCL 900 MG in DEXT 5% WATER 500 ML IV SCH (13:00)
[2018-07-23] MEDS ORDERED: AMIODARONE HCL 150 MG in DEXT 5% WATER 100 ML IV SCH (13:00)
[2018-07-23] MEDS ORDERED: EPOETIN ALFA 4000UNITS/ML VIAL SUBCUT NR (21:00)
[2018-07-24] VITALS (11 sets, daily range): BP systolic 108–147; BP diastolic 65–78
[2018-07-24] MEDS: TRAMADOL 50MG TABLET PO PRN (03:05)
[2018-07-24] MEDS: DOCUSATE SODIUM 100MG CAPSULE PO SCH ×2 (08:47→17:00)
[2018-07-24] MEDS: SEVELAMER CARBONATE 800 MG TABLET PO SCH ×3 (08:48→17:07)
[2018-07-24] MEDS: SUCRALFATE 1 G/10 ML UDC PO SCH ×5 (08:48→21:27)
[2018-07-24] MEDS: CARVEDILOL 3.125 MG TABLET PO SCH (08:49)
[2018-07-24] MEDS: MIDODRINE HCL 5MG TABLET PO SCH ×3 (08:49→17:08)
[2018-07-24 16:40] LABS: BASOPHILS % 0.8 % (0.0-2.0); EOSINOPHILS % 0.3 % (0.0-5.0); HEMATOCRIT. 34.4 % (36.0-48.0); HEMOGLOBIN. 10.9 g/dL (12.0-16.0); LYMPHOCYTES % 11.9 % (20.0-50.0); MEAN CORPUSCULAR HEMOGLOBIN 30.4 pg (28.0-32.0); MEAN CORPUSCULAR VOLUME 95.6 fL (81.0-99.0); MEAN PLATELET VOLUME 9.9 fl (7.4-10.4); MONOCYTES % 5.2 % (2.0-8.0); NEUTROPHILS % 81.8 % (40.0-76.0); PLATELET 86 x1000/uL (130-400); RED CELL DISTRIBUTION WIDTH 22.7 % (11.6-14.6)
[2018-07-24 16:57] LABS: CHLORIDE 107 mEq/L (98-107)
[2018-07-24 17:07] LABS: CREATINE KINASE 40 IU/L (26-192)
[2018-07-24] MEDS: IRON SUCROSE COMPLEX 100 MG/5 ML ML IV SCH (17:08)
[2018-07-24 17:09] LABS: CREATINE KINASE MB FRACTION 2.6 ng/mL (0.5-3.6)
[2018-07-24 17:17] LABS: PLATELET ESTIMATE NORMAL
[2018-07-24] MEDS ORDERED: EPOETIN ALFA 4000UNITS/ML VIAL SUBCUT SCH (21:00)
[2018-07-24] MEDS: CARVEDILOL 6.25 MG TABLET PO SCH (21:27)
[2018-07-24] MEDS: ZOLPIDEM TARTRATE 5MG TABLET PO PRN (22:34)
[2018-07-25] VITALS (13 sets, daily range): BP systolic 112–150; BP diastolic 58–111
[2018-07-25] MEDS: TRAMADOL 50MG TABLET PO PRN ×2 (01:54→15:34)
[2018-07-25 07:02] LABS: BASOPHILS % 1.7 % (0.0-2.0); EOSINOPHILS % 0.4 % (0.0-5.0); HEMATOCRIT. 34.9 % (36.0-48.0); HEMOGLOBIN. 10.8 g/dL (12.0-16.0); MEAN CORPUSCULAR HEMOGLOBIN 30.1 pg (28.0-32.0); MEAN CORPUSCULAR VOLUME 97.3 fL (81.0-99.0); MEAN PLATELET VOLUME 11.1 fl (7.4-10.4); MONOCYTES % 5.1 % (2.0-8.0); NEUTROPHILS % 74.8 % (40.0-76.0); PLATELET 88 x1000/uL (130-400); RED BLOOD CELL COUNT 3.59 mill/uL (4.2-5.4); RED CELL DISTRIBUTION WIDTH 23.4 % (11.6-14.6)
[2018-07-25 07:18] LABS: CHLORIDE 106 mEq/L (98-107)
[2018-07-25] MEDS: DOCUSATE SODIUM 100MG CAPSULE PO SCH ×2 (08:45→17:00)
[2018-07-25] MEDS: MIDODRINE HCL 5MG TABLET PO SCH ×3 (08:45→17:00)
[2018-07-25] MEDS: SEVELAMER CARBONATE 800 MG TABLET PO SCH ×3 (08:45→17:00)
[2018-07-25] MEDS: CARVEDILOL 6.25 MG TABLET PO SCH ×2 (08:45→21:20)
[2018-07-25] MEDS: IRON SUCROSE COMPLEX 100 MG/5 ML ML IV SCH (08:45)
[2018-07-25] MEDS: SUCRALFATE 1 G/10 ML UDC PO SCH ×4 (08:45→21:10)
[2018-07-25] MEDS: ONDANSETRON HCL 4MG/2ML INJ IV PRN ×2 (10:40→21:09)
[2018-07-25] MEDS ORDERED: CARVEDILOL 6.25 MG TABLET PO NR (14:30)
[2018-07-25] MEDS ORDERED: SODIUM POLYSTYRENE SULFONATE 15 G/60 ML BOT PO NR (16:00)
[2018-07-25] MEDS ORDERED: ACETAMINOPHEN WITH CODEINE 120-12MG/5ML UDC PO PRN (21:00)
[2018-07-25] MEDS: MORPHINE SULFATE 2 MG/ML CPJ (NOT FOR IM USE) IV PRN (21:15)
[2018-07-25] MEDS: FAMOTIDINE 20MG/2ML VIAL IV SCH (21:20)
[2018-07-26] VITALS (12 sets, daily range): BP systolic 89–161; BP diastolic 50–86
[2018-07-26] MEDS: MORPHINE SULFATE 2 MG/ML CPJ (NOT FOR IM USE) IV PRN ×4 (00:28→21:07)
[2018-07-26] MEDS: ONDANSETRON HCL 4MG/2ML INJ IV PRN ×2 (02:46→08:53)
[2018-07-26 06:16] LABS: BASOPHILS % 1.2 % (0.0-2.0); EOSINOPHILS % 0.4 % (0.0-5.0); HEMATOCRIT. 35.8 % (36.0-48.0); HEMOGLOBIN. 11.4 g/dL (12.0-16.0); LYMPHOCYTES % 17.7 % (20.0-50.0); MEAN CORPUSCULAR HEMOGLOBIN 30.8 pg (28.0-32.0); MEAN CORPUSCULAR VOLUME 96.9 fL (81.0-99.0); MONOCYTES % 7.9 % (2.0-8.0); NEUTROPHILS % 72.8 % (40.0-76.0); PLATELET 80 x1000/uL (130-400); RED CELL DISTRIBUTION WIDTH 22.2 % (11.6-14.6)
[2018-07-26 07:11] LABS: CHLORIDE 102 mEq/L (98-107)
[2018-07-26] MEDS: SUCRALFATE 1 G/10 ML UDC PO SCH ×4 (07:30→21:07)
[2018-07-26] MEDS: FAMOTIDINE 20MG/2ML VIAL IV SCH (08:52)
[2018-07-26] MEDS: IRON SUCROSE COMPLEX 100 MG/5 ML ML IV SCH (08:52)
[2018-07-26] MEDS: CARVEDILOL 6.25 MG TABLET PO SCH ×2 (08:53→21:18)
[2018-07-26] MEDS: MIDODRINE HCL 5MG TABLET PO SCH ×3 (08:53→17:09)
[2018-07-26] MEDS: DOCUSATE SODIUM 100MG CAPSULE PO SCH (08:53)
[2018-07-26] MEDS: SEVELAMER CARBONATE 800 MG TABLET PO SCH ×3 (08:54→17:00)
[2018-07-26] MEDS: DIPHENHYDRAMINE 50MG/ML VIAL IV PRN ×2 (15:01→21:16)
[2018-07-26] MEDS ORDERED: SODIUM BICARBONATE 4% (2.4MEQ) 5ML VIAL IV ONE (15:11)
[2018-07-26] MEDS ORDERED: LIDOCAINE HCL 1% 20ML VIAL (Pyxis) INJ ONE (15:11)
[2018-07-26] MEDS: DOCUSATE SODIUM SUGAR FREE 100MG/10ML UDC PO SCH (17:08)
[2018-07-27] VITALS (7 sets, daily range): BP systolic 119–142; BP diastolic 73–87
[2018-07-27] MEDS: MORPHINE SULFATE 2 MG/ML CPJ (NOT FOR IM USE) IV PRN ×4 (02:35→22:12)
[2018-07-27] MEDS: DIPHENHYDRAMINE 50MG/ML VIAL IV PRN ×2 (02:41→12:52)
[2018-07-27] MEDS: ZOLPIDEM TARTRATE 5MG TABLET PO PRN ×2 (02:41→22:14)
[2018-07-27] MEDS: SUCRALFATE 1 G/10 ML UDC PO SCH ×4 (06:51→21:01)
[2018-07-27] MEDS: ONDANSETRON HCL 4MG/2ML INJ IV PRN (07:09)
[2018-07-27 08:14] LABS: BASOPHILS % 0.5 % (0.0-2.0); EOSINOPHILS % 0.8 % (0.0-5.0); HEMATOCRIT. 34.3 % (36.0-48.0); HEMOGLOBIN. 10.7 g/dL (12.0-16.0); LYMPHOCYTES % 17.4 % (20.0-50.0); MEAN CORPUSCULAR HEMOGLOBIN 30.4 pg (28.0-32.0); MEAN PLATELET VOLUME 9.7 fl (7.4-10.4); MONOCYTES % 6.7 % (2.0-8.0); NEUTROPHILS % 74.6 % (40.0-76.0); PLATELET 97 x1000/uL (130-400); RED BLOOD CELL COUNT 3.54 mill/uL (4.2-5.4); RED CELL DISTRIBUTION WIDTH 22.3 % (11.6-14.6)
[2018-07-27] MEDS: CARVEDILOL 12.5MG TABLET PO SCH ×2 (08:53→21:51)
[2018-07-27] MEDS: SEVELAMER CARBONATE 800 MG TABLET PO SCH ×3 (08:53→17:06)
[2018-07-27] MEDS: FAMOTIDINE 20MG/2ML VIAL IV SCH (08:53)
[2018-07-27] MEDS: DOCUSATE SODIUM SUGAR FREE 100MG/10ML UDC PO SCH (08:53)
[2018-07-27] MEDS: IRON SUCROSE COMPLEX 100 MG/5 ML ML IV SCH (08:53)
[2018-07-27] MEDS: MIDODRINE HCL 5MG TABLET PO SCH ×3 (08:53→17:06)
[2018-07-28] VITALS: BP 142/88
[2018-07-28] MEDS: DIPHENHYDRAMINE 50MG/ML VIAL IV PRN ×2 (03:48→22:32)
[2018-07-28] MEDS: MORPHINE SULFATE 2 MG/ML CPJ (NOT FOR IM USE) IV PRN ×4 (03:50→22:33)
[2018-07-28 04:00] VITALS: BP 141/76
[2018-07-28 08:00] VITALS: BP 113/78
[2018-07-28] MEDS: DOCUSATE SODIUM SUGAR FREE 100MG/10ML UDC PO SCH (09:00)
[2018-07-28] MEDS: SEVELAMER CARBONATE 800 MG TABLET PO SCH ×4 (09:52→17:27)
[2018-07-28] MEDS: IRON SUCROSE COMPLEX 100 MG/5 ML ML IV SCH (09:53)
[2018-07-28] MEDS: MIDODRINE HCL 5MG TABLET PO SCH ×4 (09:53→17:26)
[2018-07-28] MEDS: SUCRALFATE 1 G/10 ML UDC PO SCH ×5 (09:53→22:18)
[2018-07-28] MEDS: CARVEDILOL 12.5MG TABLET PO SCH (09:53)
[2018-07-28] MEDS: FAMOTIDINE 20MG/2ML VIAL IV SCH (09:53)
[2018-07-28 12:00] VITALS: BP 115/73
[2018-07-28] MEDS: ONDANSETRON HCL 4MG/2ML INJ IV PRN ×2 (13:47→17:26)
[2018-07-28 16:48] VITALS: BP 111/83
[2018-07-28 22:00] VITALS: BP 140/100
[2018-07-28] MEDS: CARVEDILOL 25MG TABLET PO SCH (22:18)
[2018-07-28] MEDS: ZOLPIDEM TARTRATE 5MG TABLET PO PRN (22:18)
[2018-07-29] MEDS: DIPHENHYDRAMINE 50MG/ML VIAL IV PRN (05:52)
[2018-07-29] MEDS: MORPHINE SULFATE 2 MG/ML CPJ (NOT FOR IM USE) IV PRN ×3 (05:52→19:05)
[2018-07-29 06:40] LABS: BASOPHILS % 0.8 % (0.0-2.0); EOSINOPHILS % 0.7 % (0.0-5.0); HEMATOCRIT. 38.1 % (36.0-48.0); HEMOGLOBIN. 12.2 g/dL (12.0-16.0); LYMPHOCYTES % 20.4 % (20.0-50.0); MEAN CORPUSCULAR HEMOGLOBIN 31.2 pg (28.0-32.0); MEAN CORPUSCULAR VOLUME 97.6 fL (81.0-99.0); MEAN PLATELET VOLUME 10.6 fl (7.4-10.4); MONOCYTES % 9.6 % (2.0-8.0); NEUTROPHILS % 68.5 % (40.0-76.0); PLATELET 123 x1000/uL (130-400); RED CELL DISTRIBUTION WIDTH 22.4 % (11.6-14.6)
[2018-07-29 08:00] VITALS: BP 111/65
[2018-07-29] MEDS: DOCUSATE SODIUM SUGAR FREE 100MG/10ML UDC PO SCH (08:27)
[2018-07-29] MEDS: SEVELAMER CARBONATE 800 MG TABLET PO SCH ×3 (08:28→17:48)
[2018-07-29] MEDS: MIDODRINE HCL 5MG TABLET PO SCH ×3 (08:28→17:48)
[2018-07-29] MEDS: CARVEDILOL 25MG TABLET PO SCH ×2 (08:28→21:22)
[2018-07-29] MEDS: FAMOTIDINE 20MG/2ML VIAL IV SCH (08:28)
[2018-07-29] MEDS: SUCRALFATE 1 G/10 ML UDC PO SCH ×4 (08:28→21:21)
[2018-07-29 12:00] VITALS: BP 109/53
[2018-07-29] MEDS: ONDANSETRON HCL 4MG/2ML INJ IV PRN (14:01)
[2018-07-29] MEDS: SULFAMETHOXAZOLE/TRIMETHOPRIM 400/80MG TAB PO SCH (14:01)
[2018-07-29 16:00] VITALS: BP 123/76
[2018-07-29 20:00] VITALS: BP 132/79
[2018-07-29] MEDS ORDERED: SULFAMETHOXAZOLE/TRIMETHOPRIM 800/160MG TABLET PO SCH (21:00)
[2018-07-30] VITALS: BP 100/75
[2018-07-30] MEDS: MORPHINE SULFATE 2 MG/ML CPJ (NOT FOR IM USE) IV PRN ×4 (00:34→17:40)
[2018-07-30 04:00] VITALS: BP 105/50
[2018-07-30] MEDS: SUCRALFATE 1 G/10 ML UDC PO SCH ×6 (06:04→21:35)
[2018-07-30] MEDS: DOCUSATE SODIUM SUGAR FREE 100MG/10ML UDC PO SCH ×2 (09:00→09:13)
[2018-07-30 09:01] VITALS: BP 107/70
[2018-07-30] MEDS: CARVEDILOL 25MG TABLET PO SCH ×2 (09:12→21:00)
[2018-07-30] MEDS: MIDODRINE HCL 5MG TABLET PO SCH ×4 (09:12→17:39)
[2018-07-30] MEDS: SEVELAMER CARBONATE 800 MG TABLET PO SCH ×4 (09:12→17:39)
[2018-07-30] MEDS: FAMOTIDINE 20MG/2ML VIAL IV SCH (09:13)
[2018-07-30] MEDS: DIPHENHYDRAMINE 50MG/ML VIAL IV PRN (09:36)
[2018-07-30] MEDS: SULFAMETHOXAZOLE/TRIMETHOPRIM 400/80MG TAB PO SCH (11:03)
[2018-07-30 12:20] VITALS: BP 105/59
[2018-07-30 16:58] VITALS: BP 100/61
[2018-07-30 20:00] VITALS: BP 98/59
[2018-07-31] VITALS: BP 100/49
[2018-07-31 04:00] VITALS: BP 115/79
[2018-07-31] MEDS: SUCRALFATE 1 G/10 ML UDC PO SCH ×3 (07:20→17:53)
[2018-07-31 08:00] VITALS: BP 108/79
[2018-07-31] MEDS: CARVEDILOL 25MG TABLET PO SCH (09:00)
[2018-07-31] MEDS: FAMOTIDINE 20MG/2ML VIAL IV SCH (09:00)
[2018-07-31] MEDS: DOCUSATE SODIUM SUGAR FREE 100MG/10ML UDC PO SCH (09:00)
[2018-07-31] MEDS: SEVELAMER CARBONATE 800 MG TABLET PO SCH ×3 (09:00→17:53)
[2018-07-31] MEDS: SULFAMETHOXAZOLE/TRIMETHOPRIM 400/80MG TAB PO SCH (09:00)
[2018-07-31] MEDS: MIDODRINE HCL 5MG TABLET PO SCH ×3 (09:00→17:53)
[2018-07-31 12:00] VITALS: BP 115/76
[2018-07-31] MEDS ORDERED: NEOMYCIN/POLYMYXN B/GRAMICIDIN OPHTH DROPS 10ML LEFTEYE SCH (12:00)
[2018-07-31] MEDS: NEO/POLYMYX B SULF/DEXAMETH 0.1% OPHTH SUSP 5ML LEFTEYE SCH ×2 (13:17→17:54)
[2018-07-31] MEDS ORDERED: DIPHENHYDRAMINE 25MG CAPSULE PO PRN (15:00)
[2018-07-31 16:00] VITALS: BP 104/72
[2018-07-31 16:43] VITALS: BP 104/72
[2018-08-01] MEDS ORDERED: FAMOTIDINE 20MG TABLET PO SCH (09:00)
== END 2018-07-31 19:53 | disposition home or self-care (01) | DRG 194 ==
LOC: ER 23:51 → 8WST 07-19 04:13 → EDBEDREQTM 07-19 04:19 → EDBEDREQ 07-19 04:19 → ENRESERV 07-19 07:08 → 5EST 07-23 12:42 → 6WST 07-29 23:51
PROVIDERS: ADMIT Internal Medicine; ATTEND Internal Medicine
PROC: 5A1D70Z Performance of Urinary Filtration, Intermittent, Less than 6 Hours Per Day (ICD-10-PCS; 2018-07-19)
PROC: 5A1D70Z Performance of Urinary Filtration, Intermittent, Less than 6 Hours Per Day (ICD-10-PCS; 2018-07-21)
PROC: 5A1D70Z Performance of Urinary Filtration, Intermittent, Less than 6 Hours Per Day (ICD-10-PCS; 2018-07-22)
PROC: 5A1D70Z Performance of Urinary Filtration, Intermittent, Less than 6 Hours Per Day (ICD-10-PCS; 2018-07-24)
PROC: 0W9G3ZZ Drainage of Peritoneal Cavity, Percutaneous Approach (ICD-10-PCS; principal; 2018-07-26)
PROC: 5A1D70Z Performance of Urinary Filtration, Intermittent, Less than 6 Hours Per Day (ICD-10-PCS; 2018-07-26)
PROC: 5A1D70Z Performance of Urinary Filtration, Intermittent, Less than 6 Hours Per Day (ICD-10-PCS; 2018-07-29)
PROC: 5A1D70Z Performance of Urinary Filtration, Intermittent, Less than 6 Hours Per Day (ICD-10-PCS; 2018-07-31)
DX: I13.2 Hypertensive heart and chronic kidney disease with heart failure and with stage 5 chronic kidney disease, or end stage renal disease (principal); I47.2 Ventricular tachycardia; E87.2 Acidosis; E46 Unspecified protein-calorie malnutrition; I95.9 Hypotension, unspecified; E11.22 Type 2 diabetes mellitus with diabetic chronic kidney disease; D69.6 Thrombocytopenia, unspecified; E87.1 Hypo-osmolality and hyponatremia; N18.6 End stage renal disease; R16.0 Hepatomegaly, not elsewhere classified; R22.9 Localized swelling, mass and lump, unspecified; I42.9 Cardiomyopathy, unspecified; I50.23 Acute on chronic systolic (congestive) heart failure; E87.5 Hyperkalemia; K74.60 Unspecified cirrhosis of liver; J98.11 Atelectasis; D63.8 Anemia in other chronic diseases classified elsewhere; E78.5 Hyperlipidemia, unspecified; K76.0 Fatty (change of) liver, not elsewhere classified; N27.1 Small kidney, bilateral; R18.8 Other ascites; Z59.0 Homelessness; Z79.899 Other long term (current) drug therapy; Z91.14 Patient's other noncompliance with medication regimen; Z99.2 Dependence on renal dialysis; Z91.15 Patient's noncompliance with renal dialysis; Z91.19 Patient's noncompliance with other medical treatment and regimen; Z98.891 History of uterine scar from previous surgery; Z88.0 Allergy status to penicillin; Z88.5 Allergy status to narcotic agent; Z71.41 Alcohol abuse counseling and surveillance of alcoholic; Z68.22 Body mass index [BMI] 22.0-22.9, adult; L72.9 Follicular cyst of the skin and subcutaneous tissue, unspecified
CPT/HCPCS: 36415; 49083; 71045; 76536; 76700; 80048; 80051; 80076; 80305; 80307; 80320; 80329; 82150; 82550; 82553; 82962; 83605; 83735; 83880; 84134; 84443; 84484; 93005; 96374; 99285; C1893; J0282; J0610; J0885; J1200; J2270; J2405; J3475; J3490; J7030; J7040; J7060; Q0162; G0480

== ENCOUNTER 2018-08-13 16:39 | Inpatient (IN) | payer MEDICAID ==
[~2018-08-13] VITALS: Ht 167.6 cm; Wt 69.4 kg
[2018-08-13] MEDS ORDERED: MORPHINE SULFATE 4 MG/ML CPJ (NOT FOR IM USE) IV STA (17:27)
[2018-08-13] MEDS ORDERED: ONDANSETRON HCL 4MG/2ML INJ IV STA (17:27)
[2018-08-13 18:01] LABS: EOSINOPHILS % 0.4 % (0.0-5.0); HEMATOCRIT. 32.3 %; HEMOGLOBIN. 10.4 g/dL; LYMPHOCYTES % 13.3 %; MEAN CORPUSCULAR HEMOGLOBIN 30.3 pg; MEAN PLATELET VOLUME 10.3 fl (7.4-10.4); MONOCYTES % 3.9 % (2.0-8.0); NEUTROPHILS % 81.4 %; PLATELET 167 x1000/uL (130-400); RED BLOOD CELL COUNT 3.44 mill/uL; RED CELL DISTRIBUTION WIDTH 19.3 % (11.6-14.6)
[2018-08-13 18:08] LABS: CHLORIDE 106 mEq/L
[2018-08-13] MEDS ORDERED: SODIUM CHLORIDE 0.9% 1,000 ML IV ONE (18:55)
[2018-08-13] MEDS ORDERED: ACETAMINOPHEN 325MG TABLET PO PRN (20:00)
[2018-08-13] MEDS ORDERED: GUAIFENESIN 200MG/10ML SUGAR FREE UDC PO PRN (20:00)
[2018-08-13] MEDS ORDERED: MAGNESIUM/ALUMINUM HYDROXIDE/SIMETHICONE 30ML UDC PO PRN (20:00)
[2018-08-13] MEDS ORDERED: DOCUSATE SODIUM 100MG CAPSULE PO PRN (20:00)
[2018-08-13] MEDS ORDERED: CLONIDINE 0.1MG TABLET PO PRN (20:00)
[2018-08-13] MEDS ORDERED: IPRATROPIUM/ALBUTEROL 0.5-3(2.5)MG/3ML NEB INH PRN (20:00)
[2018-08-13 23:00] VITALS: BP 101/67
[2018-08-13] MEDS: MORPHINE SULFATE 2 MG/ML CPJ (NOT FOR IM USE) IV PRN (23:06)
[2018-08-13] MEDS: DIPHENHYDRAMINE 50MG/ML VIAL IV PRN (23:19)
[2018-08-14 04:00] VITALS: BP 111/88
[2018-08-14] MEDS: DIPHENHYDRAMINE 50MG/ML VIAL IV PRN ×3 (05:35→22:09)
[2018-08-14] MEDS: MORPHINE SULFATE 2 MG/ML CPJ (NOT FOR IM USE) IV PRN ×3 (05:40→14:27)
[2018-08-14 06:54] LABS: BASOPHILS % 0.4 % (0.0-2.0); EOSINOPHILS % 0.7 % (0.0-5.0); HEMATOCRIT. 32.4 %; HEMOGLOBIN. 10.3 g/dL; LYMPHOCYTES % 12.7 %; MEAN CORPUSCULAR HEMOGLOBIN 29.7 pg; MEAN CORPUSCULAR VOLUME 93.6 fL; MEAN PLATELET VOLUME 9.8 fl (7.4-10.4); MONOCYTES % 1.8 % (2.0-8.0); NEUTROPHILS % 84.4 %; PLATELET 116 x1000/uL (130-400); RED BLOOD CELL COUNT 3.46 mill/uL; RED CELL DISTRIBUTION WIDTH 19.3 % (11.6-14.6)
[2018-08-14 07:09] LABS: CHLORIDE 112 mEq/L
[2018-08-14 07:28] LABS: CREATINE KINASE 48 IU/L; HDL CHOLESTEROL 44 mg/dL; LDL CHOLESTEROL 37 mg/dL
[2018-08-14 07:33] LABS: CREATINE KINASE MB FRACTION 2.4 ng/mL
[2018-08-14 08:00] VITALS: BP 103/66
[2018-08-14 12:00] VITALS: BP 103/75
[2018-08-14] MEDS ORDERED: POTASSIUM CHLORIDE 20MEQ TABLET SR PO ONE (14:15)
[2018-08-14] MEDS ORDERED: POTASSIUM CHLORIDE 20MEQ TABLET SR PO SCH (14:15)
[2018-08-14 16:00] VITALS: BP 94/64
[2018-08-14 16:49] LABS: INR 1.3; PARTIAL THROMBOPLASTIN TIME 30.4 sec (23.4-31.0); PROTHROMBIN TIME 13.4 sec (9.6-11.0)
[2018-08-14] MEDS ORDERED: LACTULOSE 20G/30ML UDC PO ONE (17:00)
[2018-08-14] MEDS: HYDROMORPHONE HCL/PF 2MG/ML CPJ IV PRN (17:54)
[2018-08-14 20:00] VITALS: BP 106/78
[2018-08-14] MEDS: GABAPENTIN 100MG CAPSULE PO SCH (22:04)
[2018-08-14] MEDS: ONDANSETRON HCL 4MG/2ML INJ IV PRN (22:09)
[2018-08-15] VITALS: BP 110/74
[2018-08-15] MEDS: HYDROMORPHONE HCL/PF 2MG/ML CPJ IV PRN ×4 (00:12→21:37)
[2018-08-15 04:00] VITALS: BP 115/55
[2018-08-15 05:58] LABS: BASOPHILS % 0.7 % (0.0-2.0); EOSINOPHILS % 1.2 % (0.0-5.0); HEMATOCRIT. 33.6 %; HEMOGLOBIN. 10.3 g/dL; LYMPHOCYTES % 21.9 %; MEAN CORPUSCULAR HEMOGLOBIN 29.9 pg; MEAN CORPUSCULAR VOLUME 97.4 fL; MEAN PLATELET VOLUME 9.4 fl (7.4-10.4); MONOCYTES % 7.6 % (2.0-8.0); NEUTROPHILS % 68.6 %; PLATELET 108 x1000/uL (130-400); RED BLOOD CELL COUNT 3.45 mill/uL; RED CELL DISTRIBUTION WIDTH 19.3 % (11.6-14.6)
[2018-08-15] MEDS: GABAPENTIN 100MG CAPSULE PO SCH ×3 (06:18→21:36)
[2018-08-15] MEDS ORDERED: LEVOFLOXACIN 250MG PREMIX 50 ML IV SCH (07:15)
[2018-08-15 08:00] VITALS: BP 100/70
[2018-08-15] MEDS ORDERED: SODIUM BICARBONATE 4% (2.4MEQ) 5ML VIAL IV ONE (08:26)
[2018-08-15] MEDS ORDERED: LIDOCAINE HCL 1% 20ML VIAL (Pyxis) INJ ONE ×2 (08:26→14:21)
[2018-08-15] MEDS: ONDANSETRON HCL 4MG/2ML INJ IV PRN ×2 (09:27→19:02)
[2018-08-15] MEDS: FOLIC ACID/VITAMIN B COMP W-C TABLET PO SCH (09:28)
[2018-08-15] MEDS: LEVOFLOXACIN 250MG PREMIX 50 ML IV SCH (09:29)
[2018-08-15 12:00] VITALS: BP 117/84
[2018-08-15] MEDS: DOCUSATE SODIUM 100MG CAPSULE PO SCH ×2 (16:27→16:29)
[2018-08-15] MEDS: LACTULOSE 20G/30ML UDC PO PRN (16:42)
[2018-08-15] MEDS: FUROSEMIDE 40MG TABLET PO SCH (18:37)
[2018-08-15 20:00] VITALS: BP 122/70
[2018-08-15] MEDS: DIPHENHYDRAMINE 50MG/ML VIAL IV PRN (21:36)
[2018-08-16] VITALS: BP 119/58
[2018-08-16 01:42] VITALS: BP 119/58
[2018-08-16 04:00] VITALS: BP 110/80
[2018-08-16] MEDS: GABAPENTIN 100MG CAPSULE PO SCH ×3 (05:58→21:49)
[2018-08-16] MEDS: ONDANSETRON HCL 4MG/2ML INJ IV PRN ×3 (05:58→20:15)
[2018-08-16] MEDS: HYDROMORPHONE HCL/PF 2MG/ML CPJ IV PRN ×2 (05:58→20:15)
[2018-08-16 06:25] LABS: BASOPHILS % 0.8 % (0.0-2.0); EOSINOPHILS % 1.3 % (0.0-5.0); HEMATOCRIT. 33.3 % (36.0-48.0); HEMOGLOBIN. 10.4 g/dL (12.0-16.0); LYMPHOCYTES % 24.4 % (20.0-50.0); MEAN CORPUSCULAR HEMOGLOBIN 30.1 pg (28.0-32.0); MEAN CORPUSCULAR VOLUME 96.6 fL (81.0-99.0); MEAN PLATELET VOLUME 9.7 fl (7.4-10.4); MONOCYTES % 6.7 % (2.0-8.0); NEUTROPHILS % 66.8 % (40.0-76.0); PLATELET 123 x1000/uL (130-400); RED BLOOD CELL COUNT 3.45 mill/uL (4.2-5.4); RED CELL DISTRIBUTION WIDTH 18.9 % (11.6-14.6)
[2018-08-16 08:00] VITALS: BP 91/59
[2018-08-16] MEDS: FUROSEMIDE 40MG TABLET PO SCH ×2 (08:15→17:25)
[2018-08-16] MEDS: FOLIC ACID/VITAMIN B COMP W-C TABLET PO SCH (08:15)
[2018-08-16] MEDS: DOCUSATE SODIUM 100MG CAPSULE PO SCH ×2 (08:23→17:00)
[2018-08-16 12:00] VITALS: BP 91/40
[2018-08-16] MEDS ORDERED: LIDOCAINE HCL 1% 20ML VIAL (Pyxis) INJ ONE (13:38)
[2018-08-16] MEDS ORDERED: SODIUM BICARBONATE 4% (2.4MEQ) 5ML VIAL IV ONE (13:38)
[2018-08-16] MEDS ORDERED: FENTANYL CITRATE/PF 50MCG/ML 2ML VIAL ONE (14:32)
[2018-08-16] MEDS ORDERED: MIDAZOLAM HCL 2 MG/2 ML VIAL ONE (14:33)
[2018-08-16] MEDS ORDERED: DIPHENHYDRAMINE 50MG/ML VIAL ONE (14:33)
[2018-08-16] MEDS ORDERED: LIDOCAINE HCL/PF 1% 10 MG/ML 5ML VIAL ONE (14:33)
[2018-08-16] MEDS ORDERED: SODIUM CHLORIDE 0.9% 10ML VIAL ONE (14:33)
[2018-08-16] MEDS ORDERED: CEFAZOLIN SODIUM 1000MG/VIAL ONE (14:33)
[2018-08-16] MEDS ORDERED: PROPOFOL 200MG/20ML VIAL IV ONE (14:39)
[2018-08-16 20:00] VITALS: BP 122/70
[2018-08-16] MEDS: LACTULOSE 20G/30ML UDC PO PRN (21:49)
[2018-08-16] MEDS: DIPHENHYDRAMINE 50MG/ML VIAL IV PRN (21:51)
[2018-08-17] VITALS: BP 99/71
[2018-08-17] MEDS: HYDROMORPHONE HCL/PF 2MG/ML CPJ IV PRN ×4 (02:29→18:06)
[2018-08-17 04:00] VITALS: BP 106/74
[2018-08-17] MEDS: GABAPENTIN 100MG CAPSULE PO SCH ×3 (05:14→20:37)
[2018-08-17] MEDS: DIPHENHYDRAMINE 50MG/ML VIAL IV PRN ×2 (05:14→18:40)
[2018-08-17 06:16] LABS: BASOPHILS % 0.9 % (0.0-2.0); EOSINOPHILS % 0.8 % (0.0-5.0); HEMATOCRIT. 31.2 % (36.0-48.0); HEMOGLOBIN. 9.8 g/dL (12.0-16.0); LYMPHOCYTES % 19.2 % (20.0-50.0); MEAN CORPUSCULAR HEMOGLOBIN 29.8 pg (28.0-32.0); MEAN CORPUSCULAR VOLUME 94.8 fL (81.0-99.0); MEAN PLATELET VOLUME 9.4 fl (7.4-10.4); MONOCYTES % 5.9 % (2.0-8.0); NEUTROPHILS % 73.2 % (40.0-76.0); PLATELET 114 x1000/uL (130-400); RED BLOOD CELL COUNT 3.29 mill/uL (4.2-5.4); RED CELL DISTRIBUTION WIDTH 18.9 % (11.6-14.6)
[2018-08-17 08:00] VITALS: BP 106/76
[2018-08-17] MEDS: FUROSEMIDE 40MG TABLET PO SCH ×2 (08:30→17:06)
[2018-08-17] MEDS: DOCUSATE SODIUM 100MG CAPSULE PO SCH ×2 (08:30→17:00)
[2018-08-17] MEDS: LEVOFLOXACIN 250MG PREMIX 50 ML IV SCH (08:30)
[2018-08-17] MEDS: FOLIC ACID/VITAMIN B COMP W-C TABLET PO SCH (08:30)
[2018-08-17 12:10] VITALS: BP 106/69
[2018-08-17 16:00] VITALS: BP 112/83
[2018-08-17 20:00] VITALS: BP 112/73
[2018-08-17] MEDS: LACTULOSE 20G/30ML UDC PO PRN (20:36)
[2018-08-17] MEDS ORDERED: EPOETIN ALFA 4000UNITS/ML VIAL SUBCUT NR (23:00)
[2018-08-18] VITALS: BP 118/83
[2018-08-18] MEDS: DIPHENHYDRAMINE 50MG/ML VIAL IV PRN ×5 (00:05→21:52)
[2018-08-18] MEDS: HYDROMORPHONE HCL/PF 2MG/ML CPJ IV PRN ×4 (00:05→20:55)
[2018-08-18] MEDS: IRON SUCROSE COMPLEX 100 MG/5 ML ML IV SCH ×2 (03:28→20:42)
[2018-08-18 04:00] VITALS: BP 101/84
[2018-08-18] MEDS: GABAPENTIN 100MG CAPSULE PO SCH ×3 (06:39→21:52)
[2018-08-18 06:46] LABS: BASOPHILS % 0.5 % (0.0-2.0); EOSINOPHILS % 1.2 % (0.0-5.0); HEMATOCRIT. 32.1 % (36.0-48.0); LYMPHOCYTES % 19.4 % (20.0-50.0); MEAN CORPUSCULAR HEMOGLOBIN 29.7 pg (28.0-32.0); MEAN CORPUSCULAR VOLUME 95.1 fL (81.0-99.0); MEAN PLATELET VOLUME 9.1 fl (7.4-10.4); MONOCYTES % 6.2 % (2.0-8.0); NEUTROPHILS % 72.7 % (40.0-76.0); PLATELET 110 x1000/uL (130-400); RED BLOOD CELL COUNT 3.37 mill/uL (4.2-5.4); RED CELL DISTRIBUTION WIDTH 18.6 % (11.6-14.6)
[2018-08-18 08:04] VITALS: BP 126/104
[2018-08-18] MEDS: FUROSEMIDE 40MG TABLET PO SCH ×2 (08:59→17:34)
[2018-08-18] MEDS: FOLIC ACID/VITAMIN B COMP W-C TABLET PO SCH (08:59)
[2018-08-18] MEDS: DOCUSATE SODIUM 100MG CAPSULE PO SCH ×2 (08:59→17:00)
[2018-08-18] MEDS: CARVEDILOL 6.25 MG TABLET PO SCH ×2 (08:59→20:28)
[2018-08-18 12:00] VITALS: BP 90/68
[2018-08-18] MEDS: LACTULOSE 20G/30ML UDC PO PRN (15:01)
[2018-08-18 16:00] VITALS: BP 101/68
[2018-08-18] MEDS: ONDANSETRON HCL 4MG/2ML INJ IV PRN (17:51)
[2018-08-18 20:00] VITALS: BP 103/64
[2018-08-18] MEDS ORDERED: EPOETIN ALFA 4000UNITS/ML VIAL SUBCUT NR (21:00)
[2018-08-19] VITALS: BP 113/80
[2018-08-19 04:00] VITALS: BP 117/81
[2018-08-19] MEDS: GABAPENTIN 100MG CAPSULE PO SCH ×3 (05:42→21:36)
[2018-08-19] MEDS: DIPHENHYDRAMINE 50MG/ML VIAL IV PRN ×4 (05:49→22:03)
[2018-08-19] MEDS: ONDANSETRON HCL 4MG/2ML INJ IV PRN (05:49)
[2018-08-19] MEDS: HYDROMORPHONE HCL/PF 2MG/ML CPJ IV PRN ×3 (05:50→21:36)
[2018-08-19 07:25] LABS: BASOPHILS % 0.7 % (0.0-2.0); EOSINOPHILS % 1.6 % (0.0-5.0); HEMOGLOBIN. 9.8 g/dL (12.0-16.0); LYMPHOCYTES % 20.8 % (20.0-50.0); MEAN CORPUSCULAR HEMOGLOBIN 29.8 pg (28.0-32.0); MEAN CORPUSCULAR VOLUME 94.7 fL (81.0-99.0); MEAN PLATELET VOLUME 9.2 fl (7.4-10.4); NEUTROPHILS % 70.9 % (40.0-76.0); PLATELET 106 x1000/uL (130-400); RED BLOOD CELL COUNT 3.28 mill/uL (4.2-5.4); RED CELL DISTRIBUTION WIDTH 19.3 % (11.6-14.6)
[2018-08-19 08:00] VITALS: BP 117/85
[2018-08-19] MEDS: LEVOFLOXACIN 250MG PREMIX 50 ML IV SCH (08:29)
[2018-08-19] MEDS: CARVEDILOL 6.25 MG TABLET PO SCH ×2 (08:30→21:35)
[2018-08-19] MEDS: FUROSEMIDE 40MG TABLET PO SCH ×2 (08:30→17:48)
[2018-08-19] MEDS: DOCUSATE SODIUM 100MG CAPSULE PO SCH ×2 (08:30→17:00)
[2018-08-19] MEDS: FOLIC ACID/VITAMIN B COMP W-C TABLET PO SCH (08:30)
[2018-08-19 12:00] VITALS: BP 102/76
[2018-08-19 16:00] VITALS: BP 111/85
[2018-08-19 20:00] VITALS: BP 163/134
[2018-08-19] MEDS: IRON SUCROSE COMPLEX 100 MG/5 ML ML IV SCH (21:36)
[2018-08-19] MEDS: LACTULOSE 20G/30ML UDC PO PRN (22:03)
[2018-08-20] MEDS: HYDROMORPHONE HCL/PF 2MG/ML CPJ IV PRN ×3 (03:20→21:03)
[2018-08-20] MEDS: DIPHENHYDRAMINE 50MG/ML VIAL IV PRN ×3 (03:32→22:35)
[2018-08-20] MEDS: GABAPENTIN 100MG CAPSULE PO SCH ×3 (06:00→21:06)
[2018-08-20 08:00] VITALS: BP 103/78
[2018-08-20] MEDS: DOCUSATE SODIUM 100MG CAPSULE PO SCH ×2 (09:00→16:53)
[2018-08-20] MEDS: CARVEDILOL 12.5MG TABLET PO SCH ×2 (09:00→21:25)
[2018-08-20] MEDS: FUROSEMIDE 40MG TABLET PO SCH ×2 (09:00→16:53)
[2018-08-20] MEDS: BENAZEPRIL 5MG TABLET PO SCH ×2 (09:00→21:25)
[2018-08-20] MEDS: FOLIC ACID/VITAMIN B COMP W-C TABLET PO SCH (09:00)
[2018-08-20] MEDS ORDERED: SODIUM BICARBONATE 4% (2.4MEQ) 5ML VIAL IV ONE (09:21)
[2018-08-20] MEDS ORDERED: LIDOCAINE HCL 1% 20ML VIAL (Pyxis) INJ ONE (09:21)
[2018-08-20 09:25] LABS: BASOPHILS % 0.7 % (0.0-2.0); EOSINOPHILS % 1.3 % (0.0-5.0); HEMOGLOBIN. 9.7 g/dL (12.0-16.0); LYMPHOCYTES % 19.9 % (20.0-50.0); MEAN CORPUSCULAR HEMOGLOBIN 29.6 pg (28.0-32.0); MEAN PLATELET VOLUME 9.7 fl (7.4-10.4); MONOCYTES % 5.5 % (2.0-8.0); NEUTROPHILS % 72.6 % (40.0-76.0); PLATELET 92 x1000/uL (130-400); RED BLOOD CELL COUNT 3.26 mill/uL (4.2-5.4); RED CELL DISTRIBUTION WIDTH 19.1 % (11.6-14.6)
[2018-08-20] MEDS ORDERED: FENTANYL CITRATE/PF 50MCG/ML 2ML VIAL ONE (09:46)
[2018-08-20] MEDS ORDERED: MIDAZOLAM HCL 2 MG/2 ML VIAL ONE (09:47)
[2018-08-20] MEDS ORDERED: DIPHENHYDRAMINE 50MG/ML VIAL ONE (09:47)
[2018-08-20] MEDS ORDERED: LIDOCAINE HCL/PF 1% 10 MG/ML 5ML VIAL ONE (09:50)
[2018-08-20] MEDS ORDERED: PROPOFOL 200MG/20ML VIAL IV ONE (09:50)
[2018-08-20 12:00] VITALS: BP 106/63
[2018-08-20 16:00] VITALS: BP 113/84
[2018-08-20] MEDS: ONDANSETRON HCL 4MG/2ML INJ IV PRN (17:56)
[2018-08-20 20:00] VITALS: BP 127/90
[2018-08-20] MEDS ORDERED: EPOETIN ALFA 4000UNITS/ML VIAL SUBCUT NR (21:00)
[2018-08-20] MEDS: LACTULOSE 20G/30ML UDC PO PRN (21:11)
[2018-08-21] VITALS: BP 142/84
[2018-08-21] MEDS: HYDROMORPHONE HCL/PF 2MG/ML CPJ IV PRN ×2 (03:44→09:20)
[2018-08-21 04:00] VITALS: BP 145/72
[2018-08-21] MEDS: DIPHENHYDRAMINE 50MG/ML VIAL IV PRN ×2 (05:17→09:18)
[2018-08-21] MEDS: GABAPENTIN 100MG CAPSULE PO SCH (05:19)
[2018-08-21 06:28] LABS: BASOPHILS % 0.8 % (0.0-2.0); HEMATOCRIT. 28.4 % (36.0-48.0); LYMPHOCYTES % 20.3 % (20.0-50.0); MEAN CORPUSCULAR HEMOGLOBIN 30.1 pg (28.0-32.0); MEAN CORPUSCULAR VOLUME 94.6 fL (81.0-99.0); MEAN PLATELET VOLUME 9.4 fl (7.4-10.4); MONOCYTES % 5.1 % (2.0-8.0); NEUTROPHILS % 72.8 % (40.0-76.0); PLATELET 100 x1000/uL (130-400); RED BLOOD CELL COUNT 3.01 mill/uL (4.2-5.4); RED CELL DISTRIBUTION WIDTH 19.2 % (11.6-14.6)
[2018-08-21 08:00] VITALS: BP 118/68
[2018-08-21] MEDS: LEVOFLOXACIN 250MG PREMIX 50 ML IV SCH (09:16)
[2018-08-21] MEDS: FUROSEMIDE 40MG TABLET PO SCH (09:17)
[2018-08-21] MEDS: DOCUSATE SODIUM 100MG CAPSULE PO SCH (09:17)
[2018-08-21] MEDS: FOLIC ACID/VITAMIN B COMP W-C TABLET PO SCH (09:17)
[2018-08-21] MEDS: BENAZEPRIL 5MG TABLET PO SCH (09:17)
[2018-08-21] MEDS: CARVEDILOL 12.5MG TABLET PO SCH (10:52)
[2018-08-21 12:00] VITALS: BP 91/62
[2018-08-22] MEDS ORDERED: FOLI-43 MT (03:33)
[2018-08-22] MEDS ORDERED: FURO40TA5 MT (03:33)
== END 2018-08-21 13:20 | disposition home health service (06) | DRG 720 ==
LOC: ER 18:40 → EDSEX 19:11 → 7WST 19:11 → ENRESERV 22:15 → 7WST 22:50
PROVIDERS: ADMIT Internal Medicine; ATTEND Internal Medicine
PROC: 5A1D70Z Performance of Urinary Filtration, Intermittent, Less than 6 Hours Per Day (ICD-10-PCS; 2018-08-13)
PROC: 0JPV3XZ Removal of Tunneled Vascular Access Device from Upper Extremity Subcutaneous Tissue and Fascia, Percutaneous Approach (ICD-10-PCS; 2018-08-15)
PROC: 02HV33Z Insertion of Infusion Device into Superior Vena Cava, Percutaneous Approach (ICD-10-PCS; 2018-08-16)
PROC: B5181ZA Fluoroscopy of Superior Vena Cava using Low Osmolar Contrast, Guidance (ICD-10-PCS; 2018-08-16)
PROC: B548ZZA Ultrasonography of Superior Vena Cava, Guidance (ICD-10-PCS; 2018-08-16)
PROC: 5A1D70Z Performance of Urinary Filtration, Intermittent, Less than 6 Hours Per Day (ICD-10-PCS; 2018-08-16)
PROC: 5A1D70Z Performance of Urinary Filtration, Intermittent, Less than 6 Hours Per Day (ICD-10-PCS; 2018-08-18)
PROC: 02HV33Z Insertion of Infusion Device into Superior Vena Cava, Percutaneous Approach (ICD-10-PCS; principal; 2018-08-20)
PROC: B5181ZA Fluoroscopy of Superior Vena Cava using Low Osmolar Contrast, Guidance (ICD-10-PCS; 2018-08-20)
PROC: 0JH63XZ Insertion of Tunneled Vascular Access Device into Chest Subcutaneous Tissue and Fascia, Percutaneous Approach (ICD-10-PCS; 2018-08-20)
PROC: 5A1D70Z Performance of Urinary Filtration, Intermittent, Less than 6 Hours Per Day (ICD-10-PCS; 2018-08-20)
DX: A41.50 Gram-negative sepsis, unspecified (principal); I13.2 Hypertensive heart and chronic kidney disease with heart failure and with stage 5 chronic kidney disease, or end stage renal disease; K85.90 Acute pancreatitis without necrosis or infection, unspecified; D69.6 Thrombocytopenia, unspecified; E46 Unspecified protein-calorie malnutrition; I42.0 Dilated cardiomyopathy; N18.6 End stage renal disease; E88.09 Other disorders of plasma-protein metabolism, not elsewhere classified; E87.5 Hyperkalemia; R18.8 Other ascites; K74.60 Unspecified cirrhosis of liver; I50.23 Acute on chronic systolic (congestive) heart failure; E87.6 Hypokalemia; R10.9 Unspecified abdominal pain; D63.8 Anemia in other chronic diseases classified elsewhere; I07.1 Rheumatic tricuspid insufficiency; K59.00 Constipation, unspecified; I48.92 Unspecified atrial flutter; R74.0 Nonspecific elevation of levels of transaminase and lactic acid dehydrogenase [LDH]; I34.0 Nonrheumatic mitral (valve) insufficiency; F14.10 Cocaine abuse, uncomplicated; Z98.891 History of uterine scar from previous surgery; Z99.2 Dependence on renal dialysis; Z88.0 Allergy status to penicillin; Z68.24 Body mass index [BMI] 24.0-24.9, adult
CPT/HCPCS: 36415; 36556; 36558; 36569; 36573; 36589; 71045; 76705; 77001; 80048; 80061; 82150; 82550; 82553; 83735; 83880; 84100; 84443; 84484; 85379; 87070; 87077; 87186; 93005; 93970; 93971; 96374; 97162; 97165; 99285; C1725; C1750; C1752; C1769; C1893; J0690; J0885; J1170; J1200; J1642; J1956; J2250; J2270; J2405; J2704; J3010; J3490; J7030; J7040; J7050

== ENCOUNTER 2018-08-21 21:12 | Inpatient (IN) | payer MEDICAID ==
[~2018-08-21] VITALS: Ht 167.6 cm; Wt 72.6 kg
[2018-08-21] MEDS ORDERED: ONDANSETRON HCL 4MG/2ML INJ IV STA (22:00)
[2018-08-21] MEDS ORDERED: MORPHINE SULFATE 4 MG/ML CPJ (NOT FOR IM USE) IV STA (22:00)
[2018-08-21 23:36] LABS: BASOPHILS % 0.6 % (0.0-2.0); EOSINOPHILS % 0.5 % (0.0-5.0); HEMATOCRIT. 30.4 % (36.0-48.0); MEAN CORPUSCULAR HEMOGLOBIN 30.9 pg (28.0-32.0); MEAN CORPUSCULAR VOLUME 93.8 fL (81.0-99.0); MEAN PLATELET VOLUME 8.9 fl (7.4-10.4); MONOCYTES % 7.3 % (2.0-8.0); NEUTROPHILS % 76.6 % (40.0-76.0); PLATELET 97 x1000/uL (130-400); RED BLOOD CELL COUNT 3.24 mill/uL (4.2-5.4); RED CELL DISTRIBUTION WIDTH 19.1 % (11.6-14.6)
[2018-08-21 23:45] LABS: CHLORIDE 103 mEq/L (98-107)
[2018-08-21 23:47] LABS: HCG SCREEN NEGATIVE
[2018-08-22] VITALS (7 sets, daily range): BP systolic 90–104; BP diastolic 55–69
[2018-08-22] MEDS ORDERED: MORPHINE SULFATE 4 MG/ML CPJ (NOT FOR IM USE) IV ONE
[2018-08-22 00:01] LABS: INR 1.2; PARTIAL THROMBOPLASTIN TIME 31.7 sec (23.4-31.0); PROTHROMBIN TIME 12.1 sec (9.6-11.0)
[2018-08-22] MEDS ORDERED: FURO40TA5 MT (03:33)
[2018-08-22] MEDS ORDERED: FOLI-43 MT (03:33)
[2018-08-22] MEDS: ONDANSETRON HCL 4MG/2ML INJ IV PRN ×3 (12:48→22:20)
[2018-08-22] MEDS: HYDROMORPHONE HCL/PF 2MG/ML CPJ IV PRN ×3 (12:48→22:20)
[2018-08-22] MEDS: FUROSEMIDE 40MG/4ML VIAL IVP SCH (19:54)
[2018-08-22 23:51] LABS: HEMATOCRIT 30.8 % (36.0-48.0); HEMOGLOBIN 9.7 g/dL (12.0-16.0); MEAN CORPUSCULAR HEMOGLOBIN 29.9 pg (28.0-32.0); MEAN CORPUSCULAR VOLUME 94.5 fL (81.0-99.0); PLATELET 100 x1000/uL (130-400); RED BLOOD CELL COUNT 3.26 mill/uL (4.2-5.4); RED CELL DISTRIBUTION WIDTH 19.4 % (11.6-14.6)
[2018-08-23] VITALS: BP 108/63
[2018-08-23] MEDS: HYDROMORPHONE HCL/PF 2MG/ML CPJ IV PRN ×4 (02:35→21:43)
[2018-08-23] MEDS ORDERED: EPOETIN ALFA 4000UNITS/ML VIAL SUBCUT SCH (04:45)
[2018-08-23 08:00] VITALS: BP 125/65
[2018-08-23] MEDS: IRON SUCROSE COMPLEX 100 MG/5 ML ML IV SCH (09:43)
[2018-08-23] MEDS: ONDANSETRON HCL 4MG/2ML INJ IV PRN ×3 (09:44→21:41)
[2018-08-23] MEDS: FUROSEMIDE 40MG/4ML VIAL IVP SCH ×2 (09:44→18:36)
[2018-08-23 12:00] VITALS: BP 93/59
[2018-08-23] MEDS ORDERED: LEVOFLOXACIN 750MG PREMIX 150 ML IV SCH (12:30)
[2018-08-23 16:00] VITALS: BP 99/67
[2018-08-23 20:00] VITALS: BP 103/65
[2018-08-24] VITALS: BP 106/68
[2018-08-24] MEDS: HYDROMORPHONE HCL/PF 2MG/ML CPJ IV PRN ×6 (02:28→22:02)
[2018-08-24 04:00] VITALS: BP 122/74
[2018-08-24] MEDS: ONDANSETRON HCL 4MG/2ML INJ IV PRN (06:30)
[2018-08-24 08:00] VITALS: BP 116/70
[2018-08-24] MEDS: IRON SUCROSE COMPLEX 100 MG/5 ML ML IV SCH (09:51)
[2018-08-24] MEDS: FUROSEMIDE 40MG/4ML VIAL IVP SCH ×2 (09:51→16:18)
[2018-08-24] MEDS: DIPHENHYDRAMINE 50MG/ML VIAL IV PRN ×3 (09:51→23:32)
[2018-08-24 12:00] VITALS: BP 107/60
[2018-08-24 16:00] VITALS: BP 118/68
[2018-08-24 17:15] LABS: BASOPHILS % 0.6 % (0.0-2.0); EOSINOPHILS % 1.4 % (0.0-5.0); HEMATOCRIT. 30.5 % (36.0-48.0); HEMOGLOBIN. 9.5 g/dL (12.0-16.0); LYMPHOCYTES % 15.5 % (20.0-50.0); MEAN CORPUSCULAR HEMOGLOBIN 29.4 pg (28.0-32.0); MEAN CORPUSCULAR VOLUME 94.3 fL (81.0-99.0); MEAN PLATELET VOLUME 9.2 fl (7.4-10.4); MONOCYTES % 6.9 % (2.0-8.0); NEUTROPHILS % 75.6 % (40.0-76.0); PLATELET 95 x1000/uL (130-400); RED BLOOD CELL COUNT 3.24 mill/uL (4.2-5.4); RED CELL DISTRIBUTION WIDTH 19.9 % (11.6-14.6)
[2018-08-24 20:00] VITALS: BP 120/65
[2018-08-25] VITALS: BP 105/60
[2018-08-25] MEDS: CARVEDILOL 6.25 MG TABLET PO SCH ×3 (01:28→21:00)
[2018-08-25] MEDS: HYDROMORPHONE HCL/PF 2MG/ML CPJ IV PRN ×5 (02:10→22:08)
[2018-08-25] MEDS: ONDANSETRON HCL 4MG/2ML INJ IV PRN (02:10)
[2018-08-25 08:00] VITALS: BP 110/64
[2018-08-25] MEDS: FUROSEMIDE 40MG/4ML VIAL IVP SCH ×2 (08:23→17:00)
[2018-08-25] MEDS ORDERED: CARVEDILOL 6.25 MG TABLET PO SCH (09:00)
[2018-08-25] MEDS: IRON SUCROSE COMPLEX 100 MG/5 ML ML IV SCH (09:08)
[2018-08-25] MEDS: HYDROCODONE/ACETAMINOPHEN 5/325MG TABLET PO PRN ×2 (09:09→23:49)
[2018-08-25] MEDS: DIPHENHYDRAMINE 50MG/ML VIAL IV PRN ×3 (10:15→19:54)
[2018-08-25 12:00] VITALS: BP 100/67
[2018-08-25] MEDS ORDERED: LEVOFLOXACIN 500MG PREMIX 100 ML IV SCH (12:00)
[2018-08-25] MEDS ORDERED: HEPARIN SODIUM 1,000 UNIT/1ML VIAL IV SCH (14:15)
[2018-08-25 16:00] VITALS: BP 100/72
[2018-08-25] MEDS: LEVOFLOXACIN 500MG PREMIX 100 ML IV SCH (17:56)
[2018-08-25] MEDS ORDERED: LACTULOSE 20G/30ML UDC PO NR (18:00)
[2018-08-25 20:00] VITALS: BP 101/69
[2018-08-26] VITALS: BP 101/43
[2018-08-26] MEDS: HYDROMORPHONE HCL/PF 2MG/ML CPJ IV PRN ×4 (02:37→17:30)
[2018-08-26 04:00] VITALS: BP 105/69
[2018-08-26] MEDS: HYDROCODONE/ACETAMINOPHEN 5/325MG TABLET PO PRN (05:37)
[2018-08-26] MEDS: DIPHENHYDRAMINE 50MG/ML VIAL IV PRN ×2 (06:33→20:07)
[2018-08-26 06:47] LABS: BASOPHILS % 1.5 % (0.0-2.0); EOSINOPHILS % 1.2 % (0.0-5.0); HEMOGLOBIN. 10.2 g/dL (12.0-16.0); MEAN CORPUSCULAR HEMOGLOBIN 29.4 pg (28.0-32.0); MEAN CORPUSCULAR VOLUME 94.9 fL (81.0-99.0); MEAN PLATELET VOLUME 10.2 fl (7.4-10.4); MONOCYTES % 7.5 % (2.0-8.0); NEUTROPHILS % 77.8 % (40.0-76.0); PLATELET 92 x1000/uL (130-400); RED BLOOD CELL COUNT 3.48 mill/uL (4.2-5.4); RED CELL DISTRIBUTION WIDTH 19.3 % (11.6-14.6)
[2018-08-26 08:00] VITALS: BP 125/80
[2018-08-26] MEDS: IRON SUCROSE COMPLEX 100 MG/5 ML ML IV SCH (08:57)
[2018-08-26] MEDS: FUROSEMIDE 40MG/4ML VIAL IVP SCH ×2 (08:57→17:29)
[2018-08-26] MEDS: CARVEDILOL 6.25 MG TABLET PO SCH (08:59)
[2018-08-26] MEDS: BENAZEPRIL 5MG TABLET PO SCH ×2 (09:01→21:48)
[2018-08-26 12:00] VITALS: BP 86/53
[2018-08-26] MEDS ORDERED: ONDANSETRON HCL 4MG TABLET PO PRN (15:30)
[2018-08-26 16:00] VITALS: BP 110/66
[2018-08-26 20:00] VITALS: BP 116/65
[2018-08-26] MEDS: CARVEDILOL 12.5MG TABLET PO SCH (21:48)
[2018-08-27] VITALS: BP 121/79
[2018-08-27] MEDS: HYDROMORPHONE HCL/PF 2MG/ML CPJ IV PRN (00:50)
[2018-08-27] MEDS: DIPHENHYDRAMINE 50MG/ML VIAL IV PRN (02:32)
[2018-08-27 04:00] VITALS: BP 123/74
[2018-08-27 08:00] VITALS: BP 102/59
[2018-08-27] MEDS: CARVEDILOL 12.5MG TABLET PO SCH (09:00)
[2018-08-27] MEDS: BENAZEPRIL 5MG TABLET PO SCH (09:00)
[2018-08-27] MEDS: FUROSEMIDE 40MG/4ML VIAL IVP SCH (09:41)
[2018-08-27 12:00] VITALS: BP 107/65
[2018-08-27] MEDS: LEVOFLOXACIN 500MG PREMIX 100 ML IV SCH (13:43)
[2018-08-27 15:00] VITALS: BP 107/65
== END 2018-08-27 16:40 | disposition home or self-care (01) | DRG 720 ==
LOC: ER 21:12 → 8WST 08-22 00:08 → ENRESERV 08-22 02:23
PROVIDERS: ADMIT Internal Medicine; ATTEND Internal Medicine
PROC: 0J2TXYZ Change Other Device in Trunk Subcutaneous Tissue and Fascia, External Approach (ICD-10-PCS; principal; 2018-08-22)
PROC: 5A1D70Z Performance of Urinary Filtration, Intermittent, Less than 6 Hours Per Day (ICD-10-PCS; 2018-08-22)
PROC: 5A1D70Z Performance of Urinary Filtration, Intermittent, Less than 6 Hours Per Day (ICD-10-PCS; 2018-08-24)
PROC: 5A1D70Z Performance of Urinary Filtration, Intermittent, Less than 6 Hours Per Day (ICD-10-PCS; 2018-08-25)
PROC: 5A1D70Z Performance of Urinary Filtration, Intermittent, Less than 6 Hours Per Day (ICD-10-PCS; 2018-08-26)
DX: A41.59 Other Gram-negative sepsis (principal); I13.2 Hypertensive heart and chronic kidney disease with heart failure and with stage 5 chronic kidney disease, or end stage renal disease; K85.90 Acute pancreatitis without necrosis or infection, unspecified; N18.6 End stage renal disease; I42.9 Cardiomyopathy, unspecified; D69.6 Thrombocytopenia, unspecified; E46 Unspecified protein-calorie malnutrition; R18.8 Other ascites; E87.6 Hypokalemia; I50.23 Acute on chronic systolic (congestive) heart failure; S10.93XA Contusion of unspecified part of neck, initial encounter; D64.9 Anemia, unspecified; K74.60 Unspecified cirrhosis of liver; X58.XXXA Exposure to other specified factors, initial encounter; N63.0 Unspecified lump in unspecified breast; Z99.2 Dependence on renal dialysis; Z98.891 History of uterine scar from previous surgery; Y93.89 Activity, other specified; Y92.89 Other specified places as the place of occurrence of the external cause; Y99.8 Other external cause status; Z79.899 Other long term (current) drug therapy; Z88.0 Allergy status to penicillin
CPT/HCPCS: 36415; 71045; 76536; 76641; 80048; 82962; 83880; 84484; 84703; 85027; 93005; 93971; 99285; C1893; J0885; J1170; J1200; J1644; J1940; J1956; J2270; J2405; J7050

== ENCOUNTER 2018-09-14 21:41 | Inpatient (IN) | payer MEDICAID ==
[~2018-09-14] VITALS: Ht 167.6 cm; Wt 74.9 kg
[~2018-09-14 21:41] MED LIST changes: +FOLI-43 MT; +FURO40TA5 MT
[2018-09-14] MEDS ORDERED: ONDANSETRON HCL 4MG/2ML INJ IV STA (23:16)
[2018-09-14] MEDS ORDERED: HYDROCODONE/ACETAMINOPHEN 5/325MG TABLET PO ONE (23:30)
[2018-09-14] MEDS ORDERED: LEVOFLOXACIN 500MG PREMIX 100 ML IV ONE (23:30)
[2018-09-14] MEDS ORDERED: FUROSEMIDE 20MG/2ML VIAL IVP ONE (23:30)
[2018-09-14 23:57] LABS: BASOPHILS % 0.9 % (0.0-2.0); EOSINOPHILS % 1.7 % (0.0-5.0); HEMATOCRIT. 32.1 % (36.0-48.0); HEMOGLOBIN. 9.9 g/dL (12.0-16.0); LYMPHOCYTES % 17.4 % (20.0-50.0); MEAN CORPUSCULAR HEMOGLOBIN 29.2 pg (28.0-32.0); MEAN CORPUSCULAR VOLUME 95.3 fL (81.0-99.0); MEAN PLATELET VOLUME 9.2 fl (7.4-10.4); MONOCYTES % 4.7 % (2.0-8.0); NEUTROPHILS % 75.3 % (40.0-76.0); PLATELET 129 x1000/uL (130-400); RED BLOOD CELL COUNT 3.37 mill/uL (4.2-5.4); RED CELL DISTRIBUTION WIDTH 18.9 % (11.6-14.6)
[2018-09-15] VITALS (7 sets, daily range): BP systolic 113–143; BP diastolic 75–80
[2018-09-15 00:04] LABS: INR 1.2; PROTHROMBIN TIME 12.7 sec (9.6-11.0)
[2018-09-15 00:09] LABS: CHLORIDE 100 mEq/L (98-107)
[2018-09-15 00:21] LABS: HCG SCREEN NEGATIVE
[2018-09-15] MEDS ORDERED: FENTANYL CITRATE/PF 50MCG/ML 2ML VIAL IV ONE (03:15)
[2018-09-15] MEDS ORDERED: ACETAMINOPHEN 325MG TABLET PO PRN (09:45)
[2018-09-15] MEDS ORDERED: MORPHINE SULFATE 2 MG/ML CPJ (NOT FOR IM USE) IV PRN (09:45)
[2018-09-15] MEDS ORDERED: CLONIDINE 0.1MG TABLET PO PRN (09:45)
[2018-09-15] MEDS ORDERED: HYDROCODONE/ACETAMINOPHEN 5/325MG TABLET PO PRN (09:45)
[2018-09-15] MEDS ORDERED: ACETAMINOPHEN 650MG SUPP PR PRN (09:45)
[2018-09-15] MEDS ORDERED: LORAZEPAM 0.5MG TABLET PO PRN (09:45)
[2018-09-15] MEDS ORDERED: IPRATROPIUM/ALBUTEROL 0.5-3(2.5)MG/3ML NEB INH PRN (09:45)
[2018-09-15] MEDS: ONDANSETRON HCL 4MG/2ML INJ IV PRN ×2 (10:36→22:13)
[2018-09-15] MEDS: FUROSEMIDE 40MG TABLET PO SCH (12:20)
[2018-09-15] MEDS: PANTOPRAZOLE 40MG DR TABLET PO SCH (12:20)
[2018-09-15] MEDS: LOSARTAN POTASSIUM 50 MG TABLET PO SCH (12:20)
[2018-09-15] MEDS: DIPHENHYDRAMINE 50MG/ML VIAL IV PRN ×2 (14:07→21:50)
[2018-09-15] MEDS: HYDROMORPHONE HCL/PF 2MG/ML CPJ IV PRN ×2 (15:26→21:50)
[2018-09-15] MEDS: IRON SUCROSE COMPLEX 100 MG/5 ML ML IV SCH (15:53)
[2018-09-15] MEDS ORDERED: LIDOCAINE HCL 1% 20ML VIAL (Pyxis) INJ INJ SCH (16:45)
[2018-09-15] MEDS: MEGESTROL ACETATE 400 MG/10 ML UDC PO SCH (17:20)
[2018-09-15] MEDS ORDERED: LACTULOSE 20G/30ML UDC PO NR (20:00)
[2018-09-15] MEDS: EPOETIN ALFA 4000UNITS/ML VIAL SUBCUT SCH (21:50)
[2018-09-15] MEDS: CARVEDILOL 12.5MG TABLET PO SCH (21:51)
[2018-09-16] VITALS (7 sets, daily range): BP systolic 118–139; BP diastolic 64–85
[2018-09-16] MEDS: HYDROMORPHONE HCL/PF 2MG/ML CPJ IV PRN ×2 (02:33→13:04)
[2018-09-16] MEDS: DIPHENHYDRAMINE 50MG/ML VIAL IV PRN ×2 (03:54→14:22)
[2018-09-16] MEDS: PANTOPRAZOLE 40MG DR TABLET PO SCH (06:40)
[2018-09-16] MEDS: FUROSEMIDE 40MG TABLET PO SCH (08:06)
[2018-09-16] MEDS: LACTULOSE 20G/30ML UDC PO SCH ×2 (08:06→16:19)
[2018-09-16] MEDS: CARVEDILOL 12.5MG TABLET PO SCH ×2 (08:06→21:00)
[2018-09-16] MEDS: LOSARTAN POTASSIUM 50 MG TABLET PO SCH (08:06)
[2018-09-16] MEDS: MEGESTROL ACETATE 400 MG/10 ML UDC PO SCH ×2 (08:07→16:18)
[2018-09-16] MEDS ORDERED: LIDOCAINE HCL 1% 20ML VIAL (Pyxis) INJ ONE (08:38)
[2018-09-16] MEDS ORDERED: SODIUM BICARBONATE 4% (2.4MEQ) 5ML VIAL IV ONE (08:38)
[2018-09-16] MEDS: IRON SUCROSE COMPLEX 100 MG/5 ML ML IV SCH ×2 (09:00→14:12)
[2018-09-16] MEDS ORDERED: MIDAZOLAM HCL 2 MG/2 ML VIAL ONE (09:40)
[2018-09-16] MEDS ORDERED: FENTANYL CITRATE/PF 50MCG/ML 2ML VIAL ONE (09:40)
[2018-09-16] MEDS ORDERED: PROPOFOL 200MG/20ML VIAL IV ONE (09:40)
[2018-09-16] MEDS ORDERED: HEPARIN 1000 UNITS/ML 10ML ONE (10:17)
[2018-09-16] MEDS ORDERED: HYDROMORPHONE HCL/PF 2MG/ML CPJ IV PRN (11:00)
[2018-09-16] MEDS ORDERED: ONDANSETRON HCL 4MG/2ML INJ IV PRN (11:00)
[2018-09-16] MEDS ORDERED: ACETAMINOPHEN 500MG TABLET PO SCH (12:00)
[2018-09-16] MEDS: ONDANSETRON HCL 4MG/2ML INJ IV PRN (16:19)
[2018-09-16] MEDS ORDERED: FERR325T6 MT (18:37)
[2018-09-16] MEDS ORDERED: FOLI-43 MT (18:37)
[2018-09-17 04:00] VITALS: BP 119/70
[2018-09-17] MEDS: EPOETIN ALFA 4000UNITS/ML VIAL SUBCUT SCH (06:22)
[2018-09-17] MEDS: PANTOPRAZOLE 40MG DR TABLET PO SCH (06:23)
[2018-09-17 08:00] VITALS: BP 150/88
[2018-09-17] MEDS: CARVEDILOL 12.5MG TABLET PO SCH (09:06)
[2018-09-17] MEDS: LOSARTAN POTASSIUM 50 MG TABLET PO SCH (09:06)
[2018-09-17] MEDS: FUROSEMIDE 40MG TABLET PO SCH (09:06)
[2018-09-17] MEDS: IRON SUCROSE COMPLEX 100 MG/5 ML ML IV SCH (09:07)
[2018-09-17] MEDS: MEGESTROL ACETATE 400 MG/10 ML UDC PO SCH ×2 (09:07→17:19)
[2018-09-17] MEDS: LACTULOSE 20G/30ML UDC PO SCH ×2 (09:07→17:19)
[2018-09-17] MEDS: HYDROMORPHONE HCL/PF 2MG/ML CPJ IV PRN ×2 (09:07→13:56)
[2018-09-17] MEDS: DIPHENHYDRAMINE 50MG/ML VIAL IV PRN ×2 (09:50→17:26)
[2018-09-17 12:10] VITALS: BP 130/73
[2018-09-17 16:03] VITALS: BP 107/70
[2018-09-17 20:00] VITALS: BP_SYST 120; BP_SYST 127; BP_DIAS 74; BP_DIAS 89
[2018-09-18] VITALS: BP 132/79
[2018-09-18] MEDS: HYDROMORPHONE HCL/PF 2MG/ML CPJ IV PRN ×4 (00:14→22:20)
[2018-09-18] MEDS: DIPHENHYDRAMINE 50MG/ML VIAL IV PRN ×4 (00:25→23:50)
[2018-09-18] MEDS: CARVEDILOL 12.5MG TABLET PO SCH ×2 (00:33→08:51)
[2018-09-18 04:00] VITALS: BP 104/48
[2018-09-18] MEDS: ONDANSETRON HCL 4MG/2ML INJ IV PRN (06:18)
[2018-09-18] MEDS: PANTOPRAZOLE 40MG DR TABLET PO SCH (06:21)
[2018-09-18 07:50] VITALS: BP 109/65
[2018-09-18] MEDS: FUROSEMIDE 40MG TABLET PO SCH (08:52)
[2018-09-18] MEDS: LOSARTAN POTASSIUM 50 MG TABLET PO SCH (08:52)
[2018-09-18] MEDS: LACTULOSE 20G/30ML UDC PO SCH ×2 (09:00→16:58)
[2018-09-18] MEDS: IRON SUCROSE COMPLEX 100 MG/5 ML ML IV SCH (09:11)
[2018-09-18] MEDS: MEGESTROL ACETATE 400 MG/10 ML UDC PO SCH ×2 (09:11→16:58)
[2018-09-18 12:00] VITALS: BP 134/95
[2018-09-18 16:00] VITALS: BP 104/62
[2018-09-18 20:04] VITALS: BP 114/66
[2018-09-18 21:39] LABS: BASOPHILS % 0.6 % (0.0-2.0); EOSINOPHILS % 1.7 % (0.0-5.0); HEMATOCRIT. 27.2 % (36.0-48.0); HEMOGLOBIN. 8.6 g/dL (12.0-16.0); LYMPHOCYTES % 18.9 % (20.0-50.0); MEAN CORPUSCULAR VOLUME 92.1 fL (81.0-99.0); MEAN PLATELET VOLUME 8.6 fl (7.4-10.4); MONOCYTES % 7.3 % (2.0-8.0); NEUTROPHILS % 71.5 % (40.0-76.0); PLATELET 101 x1000/uL (130-400); RED BLOOD CELL COUNT 2.96 mill/uL (4.2-5.4); RED CELL DISTRIBUTION WIDTH 17.2 % (11.6-14.6)
[2018-09-19] VITALS (7 sets, daily range): BP systolic 104–134; BP diastolic 64–98
[2018-09-19] MEDS ORDERED: LACTULOSE 20G/30ML UDC PO NR ×2 (00:45→20:00)
[2018-09-19] MEDS ORDERED: LACTULOSE 20G/30ML UDC PO ONE (00:45)
[2018-09-19] MEDS: CARVEDILOL 12.5MG TABLET PO SCH ×3 (01:40→20:21)
[2018-09-19] MEDS: EPOETIN ALFA 4000UNITS/ML VIAL SUBCUT SCH ×2 (01:41→02:00)
[2018-09-19] MEDS: ONDANSETRON HCL 4MG/2ML INJ IV PRN ×3 (02:28→22:59)
[2018-09-19] MEDS: HYDROMORPHONE HCL/PF 2MG/ML CPJ IV PRN ×5 (02:31→23:00)
[2018-09-19] MEDS: PANTOPRAZOLE 40MG DR TABLET PO SCH (06:19)
[2018-09-19 07:17] LABS: BASOPHILS % 0.7 % (0.0-2.0); EOSINOPHILS % 2.2 % (0.0-5.0); LYMPHOCYTES % 21.5 % (20.0-50.0); MEAN CORPUSCULAR HEMOGLOBIN 29.2 pg (28.0-32.0); MEAN CORPUSCULAR VOLUME 93.5 fL (81.0-99.0); MEAN PLATELET VOLUME 9.5 fl (7.4-10.4); MONOCYTES % 3.1 % (2.0-8.0); NEUTROPHILS % 72.5 % (40.0-76.0); PLATELET 98 x1000/uL (130-400); RED BLOOD CELL COUNT 3.95 mill/uL (4.2-5.4); RED CELL DISTRIBUTION WIDTH 18.1 % (11.6-14.6)
[2018-09-19 08:01] LABS: HEMATOCRIT. 36.9 % (36.0-48.0); HEMOGLOBIN. 11.5 g/dL (12.0-16.0)
[2018-09-19] MEDS: FUROSEMIDE 40MG TABLET PO SCH (08:55)
[2018-09-19] MEDS: LACTULOSE 20G/30ML UDC PO SCH ×2 (08:55→17:00)
[2018-09-19] MEDS: IRON SUCROSE COMPLEX 100 MG/5 ML ML IV SCH (08:55)
[2018-09-19] MEDS: MEGESTROL ACETATE 400 MG/10 ML UDC PO SCH ×2 (08:55→17:00)
[2018-09-19] MEDS: LOSARTAN POTASSIUM 50 MG TABLET PO SCH (08:55)
[2018-09-19] MEDS: DIPHENHYDRAMINE 50MG/ML VIAL IV PRN ×3 (09:03→18:35)
[2018-09-20] VITALS: BP 132/77
[2018-09-20] MEDS: DIPHENHYDRAMINE 50MG/ML VIAL IV PRN ×3 (00:35→16:50)
[2018-09-20] MEDS: HYDROMORPHONE HCL/PF 2MG/ML CPJ IV PRN ×3 (03:14→12:10)
[2018-09-20 04:00] VITALS: BP 121/69
[2018-09-20] MEDS: PANTOPRAZOLE 40MG DR TABLET PO SCH (06:54)
[2018-09-20 08:00] VITALS: BP 120/62
[2018-09-20] MEDS: MEGESTROL ACETATE 400 MG/10 ML UDC PO SCH ×2 (08:52→16:49)
[2018-09-20] MEDS: LACTULOSE 20G/30ML UDC PO SCH ×2 (08:52→16:49)
[2018-09-20] MEDS: FUROSEMIDE 40MG TABLET PO SCH (08:53)
[2018-09-20] MEDS: CARVEDILOL 12.5MG TABLET PO SCH ×2 (08:53→21:40)
[2018-09-20] MEDS: LOSARTAN POTASSIUM 50 MG TABLET PO SCH (08:53)
[2018-09-20 12:00] VITALS: BP 118/50
[2018-09-20] MEDS: ONDANSETRON HCL 4MG/2ML INJ IV PRN (12:11)
[2018-09-20 16:00] VITALS: BP 127/62
[2018-09-21 04:56] VITALS: BP 110/67
[2018-09-21] MEDS: PANTOPRAZOLE 40MG DR TABLET PO SCH (06:12)
[2018-09-21 08:00] VITALS: BP 117/57
[2018-09-21] MEDS: LOSARTAN POTASSIUM 50 MG TABLET PO SCH (09:00)
[2018-09-21] MEDS: CARVEDILOL 12.5MG TABLET PO SCH ×2 (09:00→21:21)
[2018-09-21] MEDS: MEGESTROL ACETATE 400 MG/10 ML UDC PO SCH ×2 (09:00→16:52)
[2018-09-21] MEDS: LACTULOSE 20G/30ML UDC PO SCH ×2 (09:00→16:52)
[2018-09-21] MEDS: FUROSEMIDE 40MG TABLET PO SCH (09:00)
[2018-09-21 12:00] VITALS: BP 117/73
[2018-09-21 16:00] VITALS: BP 131/81
[2018-09-21] MEDS: MORPHINE SULFATE 2 MG/ML CPJ (NOT FOR IM USE) IV PRN (16:53)
[2018-09-21] MEDS: ONDANSETRON HCL 4MG/2ML INJ IV PRN (16:56)
[2018-09-21] MEDS: DIPHENHYDRAMINE 50MG/ML VIAL IV PRN (16:57)
[2018-09-21 20:00] VITALS: BP 117/73
[2018-09-22] VITALS: BP 110/63
[2018-09-22] MEDS: MORPHINE SULFATE 2 MG/ML CPJ (NOT FOR IM USE) IV PRN ×2 (01:02→09:32)
[2018-09-22] MEDS: ONDANSETRON HCL 4MG/2ML INJ IV PRN ×2 (01:10→23:42)
[2018-09-22] MEDS: DIPHENHYDRAMINE 50MG/ML VIAL IV PRN ×4 (01:37→23:42)
[2018-09-22 04:00] VITALS: BP 114/64
[2018-09-22] MEDS: PANTOPRAZOLE 40MG DR TABLET PO SCH ×2 (06:16→06:21)
[2018-09-22 08:00] VITALS: BP 122/68
[2018-09-22] MEDS: LACTULOSE 20G/30ML UDC PO SCH ×2 (09:32→16:48)
[2018-09-22] MEDS: MEGESTROL ACETATE 400 MG/10 ML UDC PO SCH ×2 (09:32→16:48)
[2018-09-22] MEDS: LOSARTAN POTASSIUM 50 MG TABLET PO SCH (09:33)
[2018-09-22] MEDS: FUROSEMIDE 40MG TABLET PO SCH (09:33)
[2018-09-22] MEDS: CARVEDILOL 12.5MG TABLET PO SCH ×2 (09:33→20:24)
[2018-09-22] MEDS: HYDROMORPHONE HCL/PF 2MG/ML CPJ IV PRN ×2 (15:35→23:44)
[2018-09-22 16:00] VITALS: BP 109/61
[2018-09-22] MEDS: GABAPENTIN 100MG CAPSULE PO SCH (16:48)
[2018-09-22 20:00] VITALS: BP 110/56
[2018-09-23 00:05] VITALS: BP 114/63
[2018-09-23 04:00] VITALS: BP 115/59
[2018-09-23] MEDS: PANTOPRAZOLE 40MG DR TABLET PO SCH (06:18)
[2018-09-23 07:39] LABS: BASOPHILS % 0.5 % (0.0-2.0); EOSINOPHILS % 1.2 % (0.0-5.0); HEMATOCRIT. 29.7 % (36.0-48.0); HEMOGLOBIN. 9.3 g/dL (12.0-16.0); LYMPHOCYTES % 17.4 % (20.0-50.0); MEAN CORPUSCULAR HEMOGLOBIN 29.2 pg (28.0-32.0); MEAN CORPUSCULAR VOLUME 93.1 fL (81.0-99.0); MEAN PLATELET VOLUME 10.7 fl (7.4-10.4); MONOCYTES % 5.9 % (2.0-8.0); PLATELET 93 x1000/uL (130-400); RED BLOOD CELL COUNT 3.19 mill/uL (4.2-5.4); RED CELL DISTRIBUTION WIDTH 17.7 % (11.6-14.6)
[2018-09-23] MEDS ORDERED: LIDOCAINE HCL 1% 20ML VIAL (Pyxis) INJ ONE ×2 (07:58→09:43)
[2018-09-23] MEDS ORDERED: SODIUM BICARBONATE 4% (2.4MEQ) 5ML VIAL IV ONE (07:58)
[2018-09-23] MEDS ORDERED: HEPARIN 1000 UNITS/ML 10ML ONE (07:58)
[2018-09-23 08:00] VITALS: BP 131/75
[2018-09-23] MEDS: GABAPENTIN 100MG CAPSULE PO SCH ×2 (09:00→18:04)
[2018-09-23] MEDS: MEGESTROL ACETATE 400 MG/10 ML UDC PO SCH ×2 (09:00→17:00)
[2018-09-23] MEDS: LOSARTAN POTASSIUM 50 MG TABLET PO SCH (09:00)
[2018-09-23] MEDS: FUROSEMIDE 40MG TABLET PO SCH (09:00)
[2018-09-23] MEDS: CARVEDILOL 12.5MG TABLET PO SCH ×2 (09:00→22:46)
[2018-09-23] MEDS ORDERED: MIDAZOLAM HCL 2 MG/2 ML VIAL ONE (09:42)
[2018-09-23] MEDS ORDERED: FENTANYL CITRATE/PF 50MCG/ML 2ML VIAL ONE ×2 (09:42→11:14)
[2018-09-23] MEDS ORDERED: PROPOFOL 200MG/20ML VIAL IV ONE (09:42)
[2018-09-23] MEDS ORDERED: CALCIUM CHLORIDE 1GM/10ML SYR IV ONE (09:45)
[2018-09-23] MEDS ORDERED: EPHEDRINE SULFATE 50MG/ML VIAL ONE (09:45)
[2018-09-23] MEDS ORDERED: PHENYLEPHRINE HCL 10 MG/ML 1ML (IV VIAL) IV ONE (09:46)
[2018-09-23] MEDS ORDERED: CLINDAMYCIN 900 MG in DEXTROSE 5% WATER 50 ML IV NR (10:00)
[2018-09-23] MEDS ORDERED: ONDANSETRON HCL 4MG/2ML INJ IV PRN (10:45)
[2018-09-23] MEDS ORDERED: METOCLOPRAMIDE HCL 10MG/2ML VIAL IV PRN (10:45)
[2018-09-23] MEDS ORDERED: MORPHINE SULFATE/PF 1MG/ML 10ML AMP ONE (11:14)
[2018-09-23] MEDS ORDERED: OXYTOCIN 10 UNITS/ML 1ML ONE (11:18)
[2018-09-23] MEDS ORDERED: ONDANSETRON HCL 4MG/2ML INJ ONE (11:51)
[2018-09-23 15:02] VITALS: BP 143/70
[2018-09-23] MEDS: DOCUSATE SODIUM 100MG CAPSULE PO PRN ×2 (15:05→15:21)
[2018-09-23] MEDS: HYDROMORPHONE HCL/PF 2MG/ML CPJ IV PRN ×2 (15:06→22:49)
[2018-09-23] MEDS: DIPHENHYDRAMINE 50MG/ML VIAL IV PRN ×2 (15:06→20:25)
[2018-09-23] MEDS: ONDANSETRON HCL 4MG/2ML INJ IV PRN (15:27)
[2018-09-23] MEDS: LACTULOSE 20G/30ML UDC PO SCH ×2 (15:27→17:00)
[2018-09-23 20:00] VITALS: BP 149/83
[2018-09-24] VITALS: BP 152/100
[2018-09-24 04:00] VITALS: BP 119/83
[2018-09-24] MEDS: ONDANSETRON HCL 4MG/2ML INJ IV PRN ×2 (04:44→12:28)
[2018-09-24] MEDS: DIPHENHYDRAMINE 50MG/ML VIAL IV PRN ×2 (04:44→12:28)
[2018-09-24] MEDS: PANTOPRAZOLE 40MG DR TABLET PO SCH (06:29)
[2018-09-24 08:00] VITALS: BP 137/74
[2018-09-24] MEDS: MEGESTROL ACETATE 400 MG/10 ML UDC PO SCH ×2 (08:56→16:38)
[2018-09-24] MEDS: LACTULOSE 20G/30ML UDC PO SCH ×2 (08:56→16:39)
[2018-09-24] MEDS: GABAPENTIN 100MG CAPSULE PO SCH ×2 (09:06→16:39)
[2018-09-24] MEDS: FUROSEMIDE 40MG TABLET PO SCH (09:07)
[2018-09-24] MEDS: LOSARTAN POTASSIUM 50 MG TABLET PO SCH (09:07)
[2018-09-24] MEDS: CARVEDILOL 12.5MG TABLET PO SCH (09:07)
[2018-09-24] MEDS: HYDROMORPHONE HCL/PF 2MG/ML CPJ IV PRN (09:08)
[2018-09-24 16:29] VITALS: BP 134/74
== END 2018-09-24 19:50 | disposition home or self-care (01) | DRG 425 ==
LOC: ER 21:41 → 8WST 09-15 02:44 → EDBEDREQDT 09-15 02:46 → EDBEDREQSVC 09-15 02:46 → EDBEDREQTM 09-15 02:46 → EDBEDREQ 09-15 02:46 → ENRESERV 09-15 03:55 → CANRESERV 09-15 03:55 → ENRESERV 09-15 04:40
PROVIDERS: ADMIT Internal Medicine; ATTEND Internal Medicine
PROC: 5A1D70Z Performance of Urinary Filtration, Intermittent, Less than 6 Hours Per Day (ICD-10-PCS; 2018-09-15)
PROC: 02H633Z Insertion of Infusion Device into Right Atrium, Percutaneous Approach (ICD-10-PCS; principal; 2018-09-16)
PROC: B2141ZZ Fluoroscopy of Right Heart using Low Osmolar Contrast (ICD-10-PCS; 2018-09-16)
PROC: B244ZZZ Ultrasonography of Right Heart (ICD-10-PCS; 2018-09-16)
PROC: B5181ZZ Fluoroscopy of Superior Vena Cava using Low Osmolar Contrast (ICD-10-PCS; 2018-09-16)
PROC: 5A1D70Z Performance of Urinary Filtration, Intermittent, Less than 6 Hours Per Day (ICD-10-PCS; 2018-09-17)
PROC: 5A1D70Z Performance of Urinary Filtration, Intermittent, Less than 6 Hours Per Day (ICD-10-PCS; 2018-09-19)
PROC: 5A1D70Z Performance of Urinary Filtration, Intermittent, Less than 6 Hours Per Day (ICD-10-PCS; 2018-09-22)
PROC: 02PAX3Z Removal of Infusion Device from Heart, External Approach (ICD-10-PCS; 2018-09-23)
PROC: 02H633Z Insertion of Infusion Device into Right Atrium, Percutaneous Approach (ICD-10-PCS; 2018-09-23)
PROC: 0JH63XZ Insertion of Tunneled Vascular Access Device into Chest Subcutaneous Tissue and Fascia, Percutaneous Approach (ICD-10-PCS; 2018-09-23)
PROC: B2141ZZ Fluoroscopy of Right Heart using Low Osmolar Contrast (ICD-10-PCS; 2018-09-23)
DX: E87.70 Fluid overload, unspecified (principal); I13.2 Hypertensive heart and chronic kidney disease with heart failure and with stage 5 chronic kidney disease, or end stage renal disease; E87.2 Acidosis; D69.6 Thrombocytopenia, unspecified; E46 Unspecified protein-calorie malnutrition; N18.6 End stage renal disease; K86.1 Other chronic pancreatitis; I87.1 Compression of vein; E87.5 Hyperkalemia; I50.23 Acute on chronic systolic (congestive) heart failure; R00.0 Tachycardia, unspecified; E87.6 Hypokalemia; D64.9 Anemia, unspecified; K76.9 Liver disease, unspecified; R10.9 Unspecified abdominal pain; F11.10 Opioid abuse, uncomplicated; G89.29 Other chronic pain; Z99.2 Dependence on renal dialysis
CPT/HCPCS: 36010; 36415; 36589; 71045; 75827; 77001; 80048; 83605; 84145; 84484; 84703; 93005; 93971; 96365; 96375; 99285; C1725; C1750; C1752; C1769; C1887; C1893; J0885; J1170; J1200; J1644; J1940; J1956; J2250; J2270; J2274; J2370; J2405; J2704; J3010; J3490; J7050; J7060

== ENCOUNTER 2018-09-27 04:59 | Inpatient (IN) | payer MEDICAID ==
[2018-09-27] VITALS (7 sets, daily range): BP systolic 110–133; BP diastolic 78–110
[~2018-09-27] VITALS: Ht 167.6 cm; Wt 75.1 kg
[~2018-09-27 04:59] MED LIST changes: +FERR325T6 MT
[2018-09-27 07:13] LABS: BG BASE EXCESS -7.2 mmol/L (-2.0-2.0); BG CARBOXYHEMOGLOBIN 0.6 % (0.5-1.5); BG DEOXYHEMOGLOBIN 1.8 % (0.0-5.0); BG FRACTION INSPIRED OXYGEN 28; BG HCO3 ACT 15.7 mmol/L (22.0-26.0); BG METHEMOGLOBIN 0.1 % (0.0-1.5); BG OXYGEN SATURATION 98.2 % (92.0-98.5); BG OXYHEMOGLOBIN 97.5 % (94.0-97.0); BG PCO2 24.5 mmHg (35.0-45.0); BG PH 7.425 (7.350-7.450); BG PO2 118.5 mmHg (75.0-100.0); BG SAMPLE SITE RIGHT RADIAL; BG TOTAL HEMOGLOBIN 10.9 g/dL (12.0-18.0); BG VENT MODE NASAL CANNULA
[2018-09-27] MEDS ORDERED: ONDANSETRON HCL 4MG/2ML INJ IV STA (07:56)
[2018-09-27] MEDS ORDERED: MORPHINE SULFATE 4 MG/ML CPJ (NOT FOR IM USE) IV STA (07:56)
[2018-09-27 08:47] LABS: BASOPHILS % 0.6 % (0.0-2.0); EOSINOPHILS % 0.7 % (0.0-5.0); HEMATOCRIT. 29.1 % (36.0-48.0); LYMPHOCYTES % 11.8 % (20.0-50.0); MEAN CORPUSCULAR HEMOGLOBIN 29.2 pg (28.0-32.0); MEAN CORPUSCULAR VOLUME 94.8 fL (81.0-99.0); MEAN PLATELET VOLUME 9.6 fl (7.4-10.4); MONOCYTES % 5.8 % (2.0-8.0); NEUTROPHILS % 81.1 % (40.0-76.0); PLATELET 86 x1000/uL (130-400); RED BLOOD CELL COUNT 3.07 mill/uL (4.2-5.4); RED CELL DISTRIBUTION WIDTH 18.1 % (11.6-14.6)
[2018-09-27 08:55] LABS: CHLORIDE 104 mEq/L (98-107)
[2018-09-27 09:02] LABS: HCG SCREEN NEGATIVE
[2018-09-27] MEDS ORDERED: CALCIUM GLUCONATE 1,000 MG in DEXT 5% WATER 100 ML IV ONE (09:45)
[2018-09-27] MEDS ORDERED: DEXTROSE 50% WATER 50ML SYRINGE IV ONE ×2 (09:45→14:08)
[2018-09-27] MEDS ORDERED: ALBUTEROL (0.083%) 2.5MG/3ML NEB HHN ONE (09:45)
[2018-09-27] MEDS ORDERED: INSULIN REGULAR (HUMULIN R) 300UNITS/3ML IV ONE (09:45)
[2018-09-27] MEDS ORDERED: SODIUM BICARBONATE 8.4% 1 MEQ/ML 50ML SYR IV ONE (09:45)
[2018-09-27] MEDS ORDERED: ACETAMINOPHEN 325MG TABLET PO PRN (12:00)
[2018-09-27] MEDS: LOSARTAN POTASSIUM 50 MG TABLET PO SCH (12:00)
[2018-09-27] MEDS ORDERED: ONDANSETRON 4MG/5ML UDC PO ONE ×2 (12:00)
[2018-09-27] MEDS ORDERED: HYDROCODONE/ACETAMINOPHEN 5/325MG TABLET PO PRN (12:00)
[2018-09-27] MEDS: GABAPENTIN 300MG CAPSULE PO SCH ×2 (14:29→21:03)
[2018-09-27] MEDS: DIPHENHYDRAMINE 50MG/ML VIAL IV PRN ×2 (17:06→22:24)
[2018-09-27] MEDS ORDERED: CARVEDILOL 3.125 MG TABLET PO SCH (21:00)
[2018-09-27] MEDS: HYDROMORPHONE HCL/PF 2MG/ML CPJ IV PRN (21:22)
[2018-09-28] VITALS (8 sets, daily range): BP systolic 117–154; BP diastolic 74–93
[2018-09-28] MEDS: HYDROMORPHONE HCL/PF 2MG/ML CPJ IV PRN ×2 (05:14→23:02)
[2018-09-28] MEDS: DIPHENHYDRAMINE 50MG/ML VIAL IV PRN ×2 (05:14→11:26)
[2018-09-28] MEDS: PANTOPRAZOLE 40MG DR TABLET PO SCH (06:09)
[2018-09-28] MEDS: GABAPENTIN 300MG CAPSULE PO SCH ×3 (06:09→22:17)
[2018-09-28] MEDS: ONDANSETRON HCL 4MG/2ML INJ IV PRN ×3 (07:36→23:01)
[2018-09-28 08:37] LABS: INR 1.4; PROTHROMBIN TIME 13.7 sec (9.6-11.0)
[2018-09-28 08:44] LABS: BASOPHILS % 0.7 % (0.0-2.0); EOSINOPHILS % 0.9 % (0.0-5.0); HEMATOCRIT. 32.1 % (36.0-48.0); HEMOGLOBIN. 9.9 g/dL (12.0-16.0); LYMPHOCYTES % 15.8 % (20.0-50.0); MEAN CORPUSCULAR HEMOGLOBIN 28.8 pg (28.0-32.0); MONOCYTES % 8.6 % (2.0-8.0); PLATELET 98 x1000/uL (130-400); RED BLOOD CELL COUNT 3.45 mill/uL (4.2-5.4); RED CELL DISTRIBUTION WIDTH 17.4 % (11.6-14.6)
[2018-09-28] MEDS: LOSARTAN POTASSIUM 50 MG TABLET PO SCH (09:00)
[2018-09-28] MEDS ORDERED: LIDOCAINE HCL 1% 20ML VIAL (Pyxis) INJ ONE (09:49)
[2018-09-28] MEDS ORDERED: SODIUM BICARBONATE 4% (2.4MEQ) 5ML VIAL IV ONE (09:49)
[2018-09-28] MEDS: IRON SUCROSE COMPLEX 100 MG/5 ML ML IV SCH (14:19)
[2018-09-28] MEDS ORDERED: EPOETIN ALFA 4000UNITS/ML VIAL SUBCUT NR (21:00)
[2018-09-28] MEDS: CARVEDILOL 12.5MG TABLET PO SCH (22:16)
[2018-09-29] VITALS (10 sets, daily range): BP systolic 98–135; BP diastolic 56–83
[2018-09-29] MEDS: DIPHENHYDRAMINE 50MG/ML VIAL IV PRN ×4 (00:30→22:54)
[2018-09-29] MEDS: GABAPENTIN 300MG CAPSULE PO SCH ×3 (05:38→20:47)
[2018-09-29] MEDS: HYDROMORPHONE HCL/PF 2MG/ML CPJ IV PRN ×3 (06:50→22:55)
[2018-09-29] MEDS: PANTOPRAZOLE 40MG DR TABLET PO SCH (09:10)
[2018-09-29] MEDS: CARVEDILOL 12.5MG TABLET PO SCH ×2 (09:10→20:47)
[2018-09-29] MEDS: LOSARTAN POTASSIUM 50 MG TABLET PO SCH (09:10)
[2018-09-29] MEDS: ONDANSETRON HCL 4MG/2ML INJ IV PRN ×3 (09:20→22:53)
[2018-09-29 11:27] LABS: BASOPHILS % 0.7 % (0.0-2.0); EOSINOPHILS % 1.7 % (0.0-5.0); HEMATOCRIT. 29.6 % (36.0-48.0); HEMOGLOBIN. 9.3 g/dL (12.0-16.0); LYMPHOCYTES % 16.2 % (20.0-50.0); MEAN CORPUSCULAR HEMOGLOBIN 29.4 pg (28.0-32.0); MEAN CORPUSCULAR VOLUME 93.5 fL (81.0-99.0); MEAN PLATELET VOLUME 9.8 fl (7.4-10.4); MONOCYTES % 3.9 % (2.0-8.0); NEUTROPHILS % 77.5 % (40.0-76.0); PLATELET 100 x1000/uL (130-400); RED BLOOD CELL COUNT 3.17 mill/uL (4.2-5.4); RED CELL DISTRIBUTION WIDTH 17.4 % (11.6-14.6)
[2018-09-29] MEDS: IRON SUCROSE COMPLEX 100 MG/5 ML ML IV SCH (14:36)
[2018-09-29] MEDS: BLOOD SUGAR DIAGNOSTIC STRIP TEST SCH ×2 (16:59→21:00)
[2018-09-30] VITALS (10 sets, daily range): BP systolic 82–125; BP diastolic 63–82
[2018-09-30] MEDS ORDERED: DOCUSATE SODIUM 250MG CAPSULE PO PRN (00:45)
[2018-09-30] MEDS: DOCUSATE SODIUM SUGAR FREE 100MG/10ML UDC PO PRN ×2 (01:06→15:39)
[2018-09-30] MEDS: HYDROMORPHONE HCL/PF 2MG/ML CPJ IV PRN ×4 (04:27→23:09)
[2018-09-30] MEDS: GABAPENTIN 300MG CAPSULE PO SCH ×3 (05:13→21:55)
[2018-09-30] MEDS: PANTOPRAZOLE 40MG DR TABLET PO SCH (08:04)
[2018-09-30] MEDS: BLOOD SUGAR DIAGNOSTIC STRIP TEST SCH ×4 (08:04→21:00)
[2018-09-30] MEDS: ONDANSETRON HCL 4MG/2ML INJ IV PRN ×2 (08:04→14:54)
[2018-09-30] MEDS: LOSARTAN POTASSIUM 50 MG TABLET PO SCH (09:00)
[2018-09-30] MEDS: CARVEDILOL 12.5MG TABLET PO SCH ×2 (10:00→22:05)
[2018-09-30] MEDS ORDERED: IPRATROPIUM/ALBUTEROL 0.5-3(2.5)MG/3ML NEB HHN PRN (12:45)
[2018-09-30] MEDS: IRON SUCROSE COMPLEX 100 MG/5 ML ML IV SCH (14:38)
[2018-09-30] MEDS: DIPHENHYDRAMINE 50MG/ML VIAL IV PRN ×2 (14:55→23:07)
[2018-09-30] MEDS: IPRATROPIUM/ALBUTEROL 0.5-3(2.5)MG/3ML NEB HHN SCH ×2 (16:25→21:39)
[2018-09-30] MEDS: BUDESONIDE 0.5MG/2ML NEB HHN SCH ×2 (16:26→21:39)
[2018-09-30] MEDS: LACTULOSE 20G/30ML UDC PO SCH (21:54)
[2018-09-30] MEDS: FOLIC ACID/VITAMIN B COMP W-C TABLET PO SCH (21:55)
[2018-09-30] MEDS: ZOLPIDEM TARTRATE 5MG TABLET PO PRN (21:56)
[2018-10-01] VITALS (12 sets, daily range): BP systolic 91–139; BP diastolic 35–100
[2018-10-01] MEDS: IPRATROPIUM/ALBUTEROL 0.5-3(2.5)MG/3ML NEB HHN SCH ×4 (02:22→20:09)
[2018-10-01] MEDS: LACTULOSE 20G/30ML UDC PO SCH ×4 (02:26→20:16)
[2018-10-01] MEDS: HYDROMORPHONE HCL/PF 2MG/ML CPJ IV PRN ×4 (04:03→20:15)
[2018-10-01] MEDS: DIPHENHYDRAMINE 50MG/ML VIAL IV PRN ×3 (05:35→20:16)
[2018-10-01] MEDS: GABAPENTIN 300MG CAPSULE PO SCH ×3 (05:35→20:16)
[2018-10-01] MEDS: ONDANSETRON HCL 4MG/2ML INJ IV PRN ×2 (05:54→14:52)
[2018-10-01 06:08] LABS: BASOPHILS % 0.7 % (0.0-2.0); EOSINOPHILS % 1.6 % (0.0-5.0); HEMATOCRIT. 35.7 % (36.0-48.0); MEAN CORPUSCULAR HEMOGLOBIN 29.6 pg (28.0-32.0); MEAN CORPUSCULAR VOLUME 95.7 fL (81.0-99.0); MEAN PLATELET VOLUME 10.2 fl (7.4-10.4); MONOCYTES % 5.5 % (2.0-8.0); NEUTROPHILS % 78.2 % (40.0-76.0); PLATELET 115 x1000/uL (130-400); RED BLOOD CELL COUNT 3.72 mill/uL (4.2-5.4); RED CELL DISTRIBUTION WIDTH 17.7 % (11.6-14.6)
[2018-10-01] MEDS: PANTOPRAZOLE 40MG DR TABLET PO SCH (08:19)
[2018-10-01] MEDS: CARVEDILOL 12.5MG TABLET PO SCH ×2 (08:19→20:31)
[2018-10-01] MEDS: BLOOD SUGAR DIAGNOSTIC STRIP TEST SCH ×4 (08:19→20:24)
[2018-10-01] MEDS: FOLIC ACID/VITAMIN B COMP W-C TABLET PO SCH (08:19)
[2018-10-01] MEDS: LOSARTAN POTASSIUM 50 MG TABLET PO SCH (08:19)
[2018-10-01] MEDS ORDERED: MORPHINE SULFATE 2 MG/ML CPJ (NOT FOR IM USE) IV PRN (20:00)
[2018-10-01] MEDS ORDERED: DIPHENHYDRAMINE 50MG/ML VIAL IM PRN (20:00)
[2018-10-01] MEDS: BUDESONIDE 0.5MG/2ML NEB HHN SCH (20:10)
[2018-10-01] MEDS: ZOLPIDEM TARTRATE 5MG TABLET PO PRN (20:16)
[2018-10-01] MEDS ORDERED: GABAPENTIN 100MG CAPSULE PO SCH (21:00)
[2018-10-02] VITALS (9 sets, daily range): BP systolic 75–141; BP diastolic 37–76
[2018-10-02] MEDS: ONDANSETRON HCL 4MG/2ML INJ IV PRN (01:16)
[2018-10-02] MEDS: HYDROMORPHONE HCL/PF 2MG/ML CPJ IV PRN ×3 (01:24→23:39)
[2018-10-02] MEDS: IPRATROPIUM/ALBUTEROL 0.5-3(2.5)MG/3ML NEB HHN SCH ×3 (01:59→20:24)
[2018-10-02] MEDS: LACTULOSE 20G/30ML UDC PO SCH ×4 (03:00→21:00)
[2018-10-02] MEDS: GABAPENTIN 300MG CAPSULE PO SCH ×3 (05:56→23:28)
[2018-10-02] MEDS: DIPHENHYDRAMINE 50MG/ML VIAL IV PRN ×2 (05:56→23:28)
[2018-10-02] MEDS: BLOOD SUGAR DIAGNOSTIC STRIP TEST SCH (07:30)
[2018-10-02] MEDS: PANTOPRAZOLE 40MG DR TABLET PO SCH (07:30)
[2018-10-02] MEDS: BUDESONIDE 0.5MG/2ML NEB HHN SCH ×2 (08:29→20:24)
[2018-10-02] MEDS: LOSARTAN POTASSIUM 50 MG TABLET PO SCH (09:00)
[2018-10-02] MEDS: CARVEDILOL 12.5MG TABLET PO SCH ×2 (09:00→23:28)
[2018-10-02] MEDS: FOLIC ACID/VITAMIN B COMP W-C TABLET PO SCH (09:00)
[2018-10-02] MEDS ORDERED: SODIUM BICARBONATE 4% (2.4MEQ) 5ML VIAL IV ONE (10:30)
[2018-10-02] MEDS ORDERED: CLINDAMYCIN 600 MG in DEXTROSE 5% WATER 50 ML IV ONE (10:30)
[2018-10-02] MEDS ORDERED: LIDOCAINE HCL 1% 20ML VIAL (Pyxis) INJ ONE ×2 (10:30→11:00)
[2018-10-02] MEDS ORDERED: CLINDAMYCIN 600MG PREMIX 50 ML IV NR (10:45)
[2018-10-02] MEDS ORDERED: FENTANYL CITRATE/PF 50MCG/ML 2ML VIAL ONE (11:37)
[2018-10-02] MEDS ORDERED: MIDAZOLAM HCL 2 MG/2 ML VIAL ONE ×2 (11:38→11:39)
[2018-10-02] MEDS ORDERED: PROPOFOL 200MG/20ML VIAL IV ONE ×2 (11:45→12:00)
[2018-10-02] MEDS ORDERED: DIPHENHYDRAMINE 50MG/ML VIAL ONE (11:46)
[2018-10-02] MEDS ORDERED: LIDOCAINE HCL/PF 1% 10 MG/ML 5ML VIAL ONE (11:54)
[2018-10-02] MEDS ORDERED: IOHEXOL-300 50 ML BOTTLE IV ONE (12:02)
[2018-10-02] MEDS ORDERED: IOHEXOL-300 100 ML BOTTLE ONE (12:03)
[2018-10-02] MEDS ORDERED: HYDROMORPHONE HCL/PF 2MG/ML CPJ IV PRN (12:45)
[2018-10-02 15:09] LABS: HEPATITIS B SURFACE ANTIGEN NEGATIVE
[2018-10-02 15:39] LABS: HEPATITIS A AB IGM NEGATIVE (NEGATIVE)
[2018-10-02] MEDS ORDERED: IRON SUCROSE COMPLEX 100 MG/5 ML ML IV SCH (16:00)
[2018-10-02 16:49] LABS: HEMATOCRIT. 30.6 % (36.0-48.0); HEMOGLOBIN. 9.5 g/dL (12.0-16.0); MEAN CORPUSCULAR HEMOGLOBIN 29.3 pg (28.0-32.0); MEAN CORPUSCULAR VOLUME 94.3 fL (81.0-99.0); RED BLOOD CELL COUNT 3.24 mill/uL (4.2-5.4)
[2018-10-02 16:50] LABS: BASOPHILS % 0.9 % (0.0-2.0); MEAN PLATELET VOLUME 9.4 fl (7.4-10.4); MONOCYTES % 4.5 % (2.0-8.0); NEUTROPHILS % 82.6 % (40.0-76.0); PLATELET 94 x1000/uL (130-400); RED CELL DISTRIBUTION WIDTH 17.5 % (11.6-14.6)
[2018-10-02] MEDS ORDERED: EPOETIN ALFA 4000UNITS/ML VIAL SUBCUT NR (21:00)
[2018-10-03] VITALS (8 sets, daily range): BP systolic 110–120; BP diastolic 61–82
[2018-10-03] MEDS: IPRATROPIUM/ALBUTEROL 0.5-3(2.5)MG/3ML NEB HHN SCH ×3 (01:40→13:15)
[2018-10-03] MEDS: LACTULOSE 20G/30ML UDC PO SCH ×3 (03:00→15:00)
[2018-10-03] MEDS: DIPHENHYDRAMINE 50MG/ML VIAL IV PRN ×2 (07:09→13:46)
[2018-10-03] MEDS: GABAPENTIN 300MG CAPSULE PO SCH ×2 (07:11→13:46)
[2018-10-03] MEDS: BUDESONIDE 0.5MG/2ML NEB HHN SCH (08:11)
[2018-10-03] MEDS: PANTOPRAZOLE 40MG DR TABLET PO SCH (09:47)
[2018-10-03] MEDS: LOSARTAN POTASSIUM 50 MG TABLET PO SCH (09:48)
[2018-10-03] MEDS: FOLIC ACID/VITAMIN B COMP W-C TABLET PO SCH (09:49)
[2018-10-03] MEDS: CARVEDILOL 12.5MG TABLET PO SCH (09:49)
[2018-10-03] MEDS: HYDROMORPHONE HCL/PF 2MG/ML CPJ IV PRN ×2 (09:50→15:07)
[2018-10-03] MEDS: ONDANSETRON HCL 4MG/2ML INJ IV PRN (13:46)
[2018-10-03] MEDS ORDERED: EPOETIN ALFA 4000UNITS/ML VIAL SUBCUT NR (21:00)
== END 2018-10-03 18:10 | disposition home or self-care (01) | DRG 133 ==
LOC: ER 04:59 → EDBEDREQ 09:43 → 5EST 10:30 → EDBEDREQTM 10:31 → EDBEDREQSVC 10:31 → EDBEDREQ 10:31 → ENRESERV 11:06
PROVIDERS: ADMIT Internal Medicine; ATTEND Internal Medicine
PROC: 5A1D70Z Performance of Urinary Filtration, Intermittent, Less than 6 Hours Per Day (ICD-10-PCS; 2018-09-27)
PROC: 0W9G3ZZ Drainage of Peritoneal Cavity, Percutaneous Approach (ICD-10-PCS; principal; 2018-09-28)
PROC: 5A1D70Z Performance of Urinary Filtration, Intermittent, Less than 6 Hours Per Day (ICD-10-PCS; 2018-09-28)
PROC: 5A1D70Z Performance of Urinary Filtration, Intermittent, Less than 6 Hours Per Day (ICD-10-PCS; 2018-09-30)
PROC: B5181ZA Fluoroscopy of Superior Vena Cava using Low Osmolar Contrast, Guidance (ICD-10-PCS; 2018-10-02)
PROC: 02HV33Z Insertion of Infusion Device into Superior Vena Cava, Percutaneous Approach (ICD-10-PCS; 2018-10-02)
PROC: B548ZZA Ultrasonography of Superior Vena Cava, Guidance (ICD-10-PCS; 2018-10-02)
PROC: B548ZZA Ultrasonography of Superior Vena Cava, Guidance (ICD-10-PCS; 2018-10-02)
PROC: 0JH63XZ Insertion of Tunneled Vascular Access Device into Chest Subcutaneous Tissue and Fascia, Percutaneous Approach (ICD-10-PCS; 2018-10-02)
PROC: 02HV33Z Insertion of Infusion Device into Superior Vena Cava, Percutaneous Approach (ICD-10-PCS; 2018-10-02)
PROC: B5181ZA Fluoroscopy of Superior Vena Cava using Low Osmolar Contrast, Guidance (ICD-10-PCS; 2018-10-02)
PROC: 02PYX3Z Removal of Infusion Device from Great Vessel, External Approach (ICD-10-PCS; 2018-10-02)
PROC: 5A1D70Z Performance of Urinary Filtration, Intermittent, Less than 6 Hours Per Day (ICD-10-PCS; 2018-10-02)
DX: J96.00 Acute respiratory failure, unspecified whether with hypoxia or hypercapnia (principal); I13.2 Hypertensive heart and chronic kidney disease with heart failure and with stage 5 chronic kidney disease, or end stage renal disease; D69.6 Thrombocytopenia, unspecified; J68.0 Bronchitis and pneumonitis due to chemicals, gases, fumes and vapors; E87.5 Hyperkalemia; I42.9 Cardiomyopathy, unspecified; E44.1 Mild protein-calorie malnutrition; N18.6 End stage renal disease; I07.1 Rheumatic tricuspid insufficiency; Z68.26 Body mass index [BMI] 26.0-26.9, adult; I50.43 Acute on chronic combined systolic (congestive) and diastolic (congestive) heart failure; R18.8 Other ascites; K76.9 Liver disease, unspecified; D63.8 Anemia in other chronic diseases classified elsewhere; E16.2 Hypoglycemia, unspecified; I87.1 Compression of vein; K86.1 Other chronic pancreatitis; F14.90 Cocaine use, unspecified, uncomplicated; Z99.2 Dependence on renal dialysis
CPT/HCPCS: 36415; 36558; 36573; 36589; 36600; 49083; 71045; 77001; 80048; 82375; 82805; 82962; 83880; 84484; 84703; 86705; 86709; 86803; 87340; 87389; 93005; 94640; 96365; 96375; 99291; C1725; C1750; C1769; C1893; J0610; J0885; J1170; J1200; J1642; J1815; J2250; J2270; J2405; J2704; J3010; J3490; J7060; J7611; J7620; J7626; Q9967

== ENCOUNTER 2018-11-26 19:14 | Inpatient (IN) | payer MEDICAID ==
[~2018-11-26] VITALS: Ht 167.6 cm; Wt 65.8 kg
[~2018-11-26 19:14] MED LIST changes: -FERR325T6 MT; +FERR325T6 PO
[2018-11-26] MEDS ORDERED: ATOR20TA65 PO (19:35)
[2018-11-26] MEDS ORDERED: CALC667C PO (19:35)
[2018-11-26] MEDS ORDERED: SODIUM CHLORIDE 0.9% 1000ML BAG (SEPSIS BOLUS) IV ONE (20:15)
[2018-11-26 21:48] LABS: BASOPHILS % 0.6 % (0.0-2.0); EOSINOPHILS % 1.2 % (0.0-5.0); HEMATOCRIT. 33.2 % (36.0-48.0); HEMOGLOBIN. 10.4 g/dL (12.0-16.0); LYMPHOCYTES % 12.3 % (20.0-50.0); MEAN CORPUSCULAR HEMOGLOBIN 29.6 pg (28.0-32.0); MEAN CORPUSCULAR VOLUME 94.5 fL (81.0-99.0); MEAN PLATELET VOLUME 9.8 fl (7.4-10.4); MONOCYTES % 6.1 % (2.0-8.0); NEUTROPHILS % 79.8 % (40.0-76.0); PLATELET 85 x1000/uL (130-400); RED BLOOD CELL COUNT 3.51 mill/uL (4.2-5.4)
[2018-11-26 21:52] LABS: CHLORIDE 108 mEq/L (98-107); INR 1.1; PROTHROMBIN TIME 11.7 sec (9.6-11.0)
[2018-11-26 22:04] LABS: PLATELET ESTIMATE DECREASED
[2018-11-26] MEDS ORDERED: CEFTRIAXONE 1 G PREMIX 50 ML IV ONE (23:15)
[2018-11-27] MEDS: MORPHINE SULFATE 10 MG/ML CPJ IM PRN ×2 (02:08→03:18)
[2018-11-27 04:40] VITALS: BP 113/85
[2018-11-27] MEDS ORDERED: MORPHINE SULFATE 2 MG/ML CPJ (NOT FOR IM USE) IV PRN (05:30)
[2018-11-27] MEDS ORDERED: DEXTROSE 50% WATER 50ML SYRINGE IV PRN (05:30)
[2018-11-27] MEDS ORDERED: ACETAMINOPHEN 325MG TABLET PO PRN (05:30)
[2018-11-27] MEDS ORDERED: COR6 PO (05:33)
[2018-11-27] MEDS ORDERED: BLOOD SUGAR DIAGNOSTIC STRIP TEST SCH (07:40)
[2018-11-27 08:00] VITALS: BP 116/87
[2018-11-27] MEDS ORDERED: INSULIN LISPRO 100 UNITS/ML SUBCUT SCH (08:10)
[2018-11-27] MEDS: FERROUS SULFATE 325MG TABLET PO SCH ×3 (08:54→18:02)
[2018-11-27] MEDS: CALCIUM ACETATE 667MG CAPSULE PO SCH ×2 (08:54→12:51)
[2018-11-27] MEDS: FOLIC ACID 1MG TABLET PO SCH (08:54)
[2018-11-27] MEDS: LOSARTAN POTASSIUM 50 MG TABLET PO SCH (08:55)
[2018-11-27] MEDS: CARVEDILOL 6.25 MG TABLET PO SCH ×2 (08:55→20:52)
[2018-11-27] MEDS ORDERED: ENOXAPARIN 40MG/0.4ML SYR SUBCUT SCH (09:00)
[2018-11-27] MEDS: ONDANSETRON HCL 4MG/2ML INJ IV PRN ×2 (09:13→21:07)
[2018-11-27] MEDS ORDERED: VANCOMYCIN 1 G PREMIX 200 ML IV NR (10:00)
[2018-11-27] MEDS: CEFEPIME 1,000 MG in DEXTROSE 5% WATER 50 ML IV SCH (11:09)
[2018-11-27 12:00] VITALS: BP 112/67
[2018-11-27] MEDS ORDERED: HYDROMORPHONE HCL/PF 2MG/ML CPJ IV NR ×2 (12:30→23:15)
[2018-11-27 16:00] VITALS: BP 126/69
[2018-11-27] MEDS: DIPHENHYDRAMINE 25MG CAPSULE PO PRN (16:58)
[2018-11-27 20:00] VITALS: BP 127/82
[2018-11-27] MEDS: MORPHINE SULFATE 2 MG/ML CPJ (NOT FOR IM USE) IV PRN (20:52)
[2018-11-27] MEDS ORDERED: EPOETIN ALFA 4000UNITS/ML VIAL SUBCUT NR (21:00)
[2018-11-27] MEDS ORDERED: ATORVASTATIN CALCIUM 20MG TABLET PO SCH (21:00)
[2018-11-27] MEDS ORDERED: VANCOMYCIN 500 MG PREMIX 100 ML IV SCH (21:00)
[2018-11-28] VITALS: BP 108/76
[2018-11-28 04:00] VITALS: BP 100/68
[2018-11-28] MEDS: MORPHINE SULFATE 2 MG/ML CPJ (NOT FOR IM USE) IV PRN ×2 (05:28→09:46)
[2018-11-28] MEDS ORDERED: LIDOCAINE HCL 1% 20ML VIAL (Pyxis) INJ ONE (07:25)
[2018-11-28] MEDS ORDERED: SODIUM BICARBONATE 4% (2.4MEQ) 5ML VIAL IV ONE (07:25)
[2018-11-28 07:39] VITALS: BP 105/73
[2018-11-28] MEDS: FERROUS SULFATE 325MG TABLET PO SCH ×3 (08:10→18:10)
[2018-11-28] MEDS ORDERED: IOHEXOL-300 50 ML BOTTLE IV ONE (08:43)
[2018-11-28] MEDS: LOSARTAN POTASSIUM 50 MG TABLET PO SCH (09:00)
[2018-11-28] MEDS: DIPHENHYDRAMINE 25MG CAPSULE PO PRN ×3 (09:42→21:46)
[2018-11-28] MEDS: FOLIC ACID 1MG TABLET PO SCH (09:42)
[2018-11-28] MEDS: CARVEDILOL 6.25 MG TABLET PO SCH ×3 (09:44→21:46)
[2018-11-28 11:50] LABS: HEMATOCRIT. 31.5 % (36.0-48.0); HEMOGLOBIN. 9.8 g/dL (12.0-16.0); MEAN CORPUSCULAR HEMOGLOBIN 29.9 pg (28.0-32.0); MEAN CORPUSCULAR VOLUME 95.8 fL (81.0-99.0); PLATELET 78 x1000/uL (130-400); RED BLOOD CELL COUNT 3.29 mill/uL (4.2-5.4); RED CELL DISTRIBUTION WIDTH 22.8 % (11.6-14.6)
[2018-11-28 12:00] VITALS: BP 108/77
[2018-11-28] MEDS: CEFEPIME 1,000 MG in DEXTROSE 5% WATER 50 ML IV SCH (12:58)
[2018-11-28] MEDS ORDERED: VANCOMYCIN 500 MG PREMIX 100 ML IV SCH (13:00)
[2018-11-28] MEDS: HYDROMORPHONE HCL/PF 2MG/ML CPJ IV PRN ×2 (13:48→20:16)
[2018-11-28 14:13] LABS: PLATELET ESTIMATE DECREASED
[2018-11-28] MEDS: ONDANSETRON HCL 4MG/2ML INJ IV PRN ×2 (15:34→20:26)
[2018-11-28 16:00] VITALS: BP 95/69
[2018-11-28 20:00] VITALS: BP 112/79
[2018-11-28] MEDS: LACTULOSE 20G/30ML UDC PO PRN (22:37)
[2018-11-29] VITALS (9 sets, daily range): BP systolic 93–140; BP diastolic 56–89
[2018-11-29] MEDS: ONDANSETRON HCL 4MG/2ML INJ IV PRN (02:06)
[2018-11-29] MEDS: HYDROMORPHONE HCL/PF 2MG/ML CPJ IV PRN ×3 (02:07→18:22)
[2018-11-29] MEDS: DIPHENHYDRAMINE 25MG CAPSULE PO PRN ×3 (02:07→18:22)
[2018-11-29 07:40] LABS: BASOPHILS % 0.6 % (0.0-2.0); EOSINOPHILS % 1.8 % (0.0-5.0); HEMATOCRIT. 31.1 % (36.0-48.0); HEMOGLOBIN. 9.7 g/dL (12.0-16.0); LYMPHOCYTES % 16.2 % (20.0-50.0); MEAN CORPUSCULAR HEMOGLOBIN 29.6 pg (28.0-32.0); MEAN CORPUSCULAR VOLUME 94.5 fL (81.0-99.0); MONOCYTES % 6.9 % (2.0-8.0); NEUTROPHILS % 74.5 % (40.0-76.0); PLATELET 78 x1000/uL (130-400); RED BLOOD CELL COUNT 3.29 mill/uL (4.2-5.4); RED CELL DISTRIBUTION WIDTH 22.6 % (11.6-14.6)
[2018-11-29] MEDS: FERROUS SULFATE 325MG TABLET PO SCH ×3 (07:44→18:10)
[2018-11-29] MEDS: LOSARTAN POTASSIUM 50 MG TABLET PO SCH (09:00)
[2018-11-29] MEDS: CARVEDILOL 6.25 MG TABLET PO SCH ×2 (09:00→22:31)
[2018-11-29] MEDS: FOLIC ACID 1MG TABLET PO SCH (09:29)
[2018-11-29] MEDS: CEFEPIME 1,000 MG in DEXTROSE 5% WATER 50 ML IV SCH (18:25)
[2018-11-29] MEDS: LACTULOSE 20G/30ML UDC PO PRN (19:47)
[2018-11-29] MEDS: TRAZODONE HCL 50MG TABLET PO SCH (22:29)
[2018-11-29] MEDS: EPOETIN ALFA 4000UNITS/ML VIAL SUBCUT SCH (22:31)
[2018-11-30] VITALS: BP 115/78
[2018-11-30] MEDS: ONDANSETRON HCL 4MG/2ML INJ IV PRN ×3 (00:45→21:08)
[2018-11-30] MEDS: HYDROMORPHONE HCL/PF 2MG/ML CPJ IV PRN ×4 (00:46→21:10)
[2018-11-30 04:00] VITALS: BP 123/86
[2018-11-30 08:00] VITALS: BP 102/71
[2018-11-30] MEDS: DIPHENHYDRAMINE 25MG CAPSULE PO PRN ×2 (08:55→14:14)
[2018-11-30] MEDS: FERROUS SULFATE 325MG TABLET PO SCH ×3 (08:56→16:31)
[2018-11-30] MEDS: FOLIC ACID 1MG TABLET PO SCH (08:56)
[2018-11-30] MEDS: CARVEDILOL 6.25 MG TABLET PO SCH ×2 (08:56→21:08)
[2018-11-30] MEDS: LOSARTAN POTASSIUM 50 MG TABLET PO SCH ×2 (09:00→21:08)
[2018-11-30] MEDS: CEFEPIME 1,000 MG in DEXTROSE 5% WATER 50 ML IV SCH (11:13)
[2018-11-30] MEDS ORDERED: VANCOMYCIN 1 G PREMIX 200 ML IV NR (15:00)
[2018-11-30 16:00] VITALS: BP 127/65
[2018-11-30] MEDS ORDERED: DIPHENHYDRAMINE 50MG CAPSULE PO PRN (16:45)
[2018-11-30 20:00] VITALS: BP 113/83
[2018-11-30] MEDS: TRAZODONE HCL 50MG TABLET PO SCH (21:08)
[2018-11-30] MEDS: LACTULOSE 20G/30ML UDC PO PRN (22:33)
[2018-12-01] VITALS: BP 115/85
[2018-12-01] MEDS: ONDANSETRON HCL 4MG/2ML INJ IV PRN ×2 (03:31→22:40)
[2018-12-01] MEDS: HYDROMORPHONE HCL/PF 2MG/ML CPJ IV PRN ×3 (03:35→22:37)
[2018-12-01 04:00] VITALS: BP 109/76
[2018-12-01 08:00] VITALS: BP 116/71
[2018-12-01] MEDS: FOLIC ACID 1MG TABLET PO SCH (08:38)
[2018-12-01] MEDS: CARVEDILOL 6.25 MG TABLET PO SCH ×2 (08:38→21:07)
[2018-12-01] MEDS: OMEPRAZOLE 20MG CAPSULE EXTENDED RELEASE PO SCH (08:38)
[2018-12-01] MEDS: LOSARTAN POTASSIUM 50 MG TABLET PO SCH ×2 (08:38→21:15)
[2018-12-01] MEDS: FERROUS SULFATE 325MG TABLET PO SCH ×3 (08:38→18:10)
[2018-12-01 12:00] VITALS: BP 91/50
[2018-12-01 20:00] VITALS: BP 130/80
[2018-12-01] MEDS: TRAZODONE HCL 50MG TABLET PO SCH (21:07)
[2018-12-02] VITALS: BP 144/78
[2018-12-02] MEDS: LORAZEPAM 2MG/ML CPJ IV PRN (01:37)
[2018-12-02] MEDS: LACTULOSE 20G/30ML UDC PO PRN (02:13)
[2018-12-02 04:00] VITALS: BP 106/76
[2018-12-02 08:00] VITALS: BP 111/78
[2018-12-02] MEDS: FERROUS SULFATE 325MG TABLET PO SCH ×3 (08:10→18:10)
[2018-12-02] MEDS: HYDROMORPHONE HCL/PF 2MG/ML CPJ IV PRN ×3 (08:43→20:53)
[2018-12-02] MEDS: OMEPRAZOLE 20MG CAPSULE EXTENDED RELEASE PO SCH (08:44)
[2018-12-02] MEDS: ONDANSETRON HCL 4MG/2ML INJ IV PRN ×3 (08:44→21:17)
[2018-12-02] MEDS: CARVEDILOL 6.25 MG TABLET PO SCH ×2 (09:00→21:04)
[2018-12-02] MEDS: LOSARTAN POTASSIUM 50 MG TABLET PO SCH ×2 (09:00→21:00)
[2018-12-02] MEDS: FOLIC ACID 1MG TABLET PO SCH (09:00)
[2018-12-02 12:00] VITALS: BP 122/69
[2018-12-02 16:00] VITALS: BP 109/67
[2018-12-02] MEDS ORDERED: DIPHENHYDRAMINE 50MG/ML VIAL IV PRN (16:30)
[2018-12-02 20:00] VITALS: BP 126/86
[2018-12-02] MEDS: TRAZODONE HCL 50MG TABLET PO SCH (20:52)
[2018-12-02] MEDS: EPOETIN ALFA 4000UNITS/ML VIAL SUBCUT SCH (21:05)
[2018-12-03] VITALS: BP 122/88
[2018-12-03] MEDS: LORAZEPAM 2MG/ML CPJ IV PRN (01:10)
[2018-12-03] MEDS: HYDROMORPHONE HCL/PF 2MG/ML CPJ IV PRN (03:40)
[2018-12-03 04:00] VITALS: BP 135/82
[2018-12-03 08:00] VITALS: BP 134/62
[2018-12-03] MEDS: FOLIC ACID 1MG TABLET PO SCH (09:28)
[2018-12-03] MEDS: LOSARTAN POTASSIUM 50 MG TABLET PO SCH (09:28)
[2018-12-03] MEDS: CARVEDILOL 6.25 MG TABLET PO SCH (09:28)
[2018-12-03] MEDS: OMEPRAZOLE 20MG CAPSULE EXTENDED RELEASE PO SCH (09:28)
[2018-12-03] MEDS: FERROUS SULFATE 325MG TABLET PO SCH ×3 (09:28→18:10)
[2018-12-03 12:00] VITALS: BP 96/65
[2018-12-03 16:00] VITALS: BP 106/79
== END 2018-12-03 20:40 | disposition left against medical advice (07) | DRG 720 ==
LOC: ER 19:14 → 7WST 23:04 → EDBEDREQTM 23:13 → EDBEDREQSVC 23:13 → EDBEDREQ 23:13 → ENRESERV 11-27 02:12
PROVIDERS: ADMIT Internal Medicine; ATTEND Internal Medicine
PROC: 5A1D70Z Performance of Urinary Filtration, Intermittent, Less than 6 Hours Per Day (ICD-10-PCS; 2018-11-27)
PROC: 02HV33Z Insertion of Infusion Device into Superior Vena Cava, Percutaneous Approach (ICD-10-PCS; principal; 2018-11-28)
PROC: B548ZZA Ultrasonography of Superior Vena Cava, Guidance (ICD-10-PCS; 2018-11-28)
PROC: 5A1D70Z Performance of Urinary Filtration, Intermittent, Less than 6 Hours Per Day (ICD-10-PCS; 2018-11-29)
PROC: 5A1D70Z Performance of Urinary Filtration, Intermittent, Less than 6 Hours Per Day (ICD-10-PCS; 2018-12-02)
PROC: 5A1D70Z Performance of Urinary Filtration, Intermittent, Less than 6 Hours Per Day (ICD-10-PCS; 2018-12-03)
DX: A41.9 Sepsis, unspecified organism (principal); I13.2 Hypertensive heart and chronic kidney disease with heart failure and with stage 5 chronic kidney disease, or end stage renal disease; D69.6 Thrombocytopenia, unspecified; E11.22 Type 2 diabetes mellitus with diabetic chronic kidney disease; E87.8 Other disorders of electrolyte and fluid balance, not elsewhere classified; E44.0 Moderate protein-calorie malnutrition; N18.6 End stage renal disease; I36.1 Nonrheumatic tricuspid (valve) insufficiency; I42.9 Cardiomyopathy, unspecified; D63.8 Anemia in other chronic diseases classified elsewhere; I50.23 Acute on chronic systolic (congestive) heart failure; E78.00 Pure hypercholesterolemia, unspecified; F14.10 Cocaine abuse, uncomplicated; Z91.19 Patient's noncompliance with other medical treatment and regimen; Z99.2 Dependence on renal dialysis; Z86.74 Personal history of sudden cardiac arrest; Z59.0 Homelessness; Z88.0 Allergy status to penicillin; Z79.899 Other long term (current) drug therapy; Z68.23 Body mass index [BMI] 23.0-23.9, adult
CPT/HCPCS: 36005; 36415; 36573; 71045; 75820; 80048; 80202; 82962; 83605; 84145; 84484; 93005; 99285; C1725; C1769; C1893; J0692; J0885; J1170; J1200; J2060; J2270; J2405; J3370; J3490; J7030; J7060; Q0163; Q9967

== ENCOUNTER 2018-12-04 23:37 | Inpatient (IN) | payer MEDICAID ==
[~2018-12-04] VITALS: Ht 162.6 cm; Wt 88.5 kg
[~2018-12-04 23:37] MED LIST changes: +ATOR20TA65 PO; +CALC667C PO; +COR6 PO
[2018-12-05] MEDS: IRON SUCROSE COMPLEX 100 MG/5 ML ML IV SCH (02:30)
[2018-12-05 03:58] LABS: HCG SCREEN NEGATIVE
[2018-12-05 04:00] LABS: CHLORIDE 106 mEq/L (98-107)
[2018-12-05 08:00] VITALS: BP 142/89
[2018-12-05] MEDS ORDERED: LIDOCAINE HCL 1% 20ML VIAL (Pyxis) INJ ONE ×2 (08:06→10:30)
[2018-12-05] MEDS ORDERED: SODIUM BICARBONATE 4% (2.4MEQ) 5ML VIAL IV ONE (08:06)
[2018-12-05] MEDS ORDERED: ACETAMINOPHEN 325MG TABLET PO PRN (08:45)
[2018-12-05] MEDS ORDERED: CARVEDILOL 6.25 MG TABLET PO SCH (09:00)
[2018-12-05] MEDS: LOSARTAN POTASSIUM 25 MG TABLET PO SCH (09:00)
[2018-12-05 12:00] VITALS: BP 120/76
[2018-12-05] MEDS: BENAZEPRIL 5MG TABLET PO SCH ×2 (12:00→21:00)
[2018-12-05] MEDS: MORPHINE SULFATE 2 MG/ML CPJ (NOT FOR IM USE) IV PRN ×2 (13:18→18:37)
[2018-12-05 15:56] LABS: BASOPHILS % 2.4 % (0.0-2.0); EOSINOPHILS % 0.6 % (0.0-5.0); HEMOGLOBIN. 11.1 g/dL (12.0-16.0); LYMPHOCYTES % 17.6 % (20.0-50.0); MEAN CORPUSCULAR HEMOGLOBIN 29.6 pg (28.0-32.0); MEAN CORPUSCULAR VOLUME 93.2 fL (81.0-99.0); MEAN PLATELET VOLUME 9.6 fl (7.4-10.4); MONOCYTES % 8.6 % (2.0-8.0); NEUTROPHILS % 70.8 % (40.0-76.0); PLATELET 109 x1000/uL (130-400); RED BLOOD CELL COUNT 3.76 mill/uL (4.2-5.4)
[2018-12-05 16:24] VITALS: BP 131/88
[2018-12-05] MEDS: DIPHENHYDRAMINE 50MG/ML VIAL IV PRN (16:28)
[2018-12-05 20:00] VITALS: BP 133/100
[2018-12-05] MEDS: CARVEDILOL 12.5MG TABLET PO SCH (21:00)
[2018-12-05] MEDS: HYDROMORPHONE HCL/PF 2MG/ML CPJ IV PRN (22:12)
[2018-12-05] MEDS ORDERED: DIPHENHYDRAMINE 50MG/ML VIAL IV STA (22:44)
[2018-12-05] MEDS ORDERED: LIDOCAINE/PRILOCAINE CREAM 5 GM TUBE TOP STA (22:44)
[2018-12-05] MEDS ORDERED: DIPHENHYDRAMINE 50MG/ML VIAL IV NR (22:45)
[2018-12-05] MEDS ORDERED: TRAZODONE HCL 50MG TABLET PO SCH (23:45)
[2018-12-06] VITALS: BP 162/101
[2018-12-06] MEDS: HYDROMORPHONE HCL/PF 2MG/ML CPJ IV PRN ×4 (03:52→22:45)
[2018-12-06] MEDS: ONDANSETRON HCL 4MG/2ML INJ IV PRN ×3 (03:52→22:44)
[2018-12-06] MEDS: TRAZODONE HCL 50MG TABLET PO SCH ×2 (03:53→22:44)
[2018-12-06 04:00] VITALS: BP 144/87
[2018-12-06 08:00] VITALS: BP 140/101
[2018-12-06 08:02] LABS: BASOPHILS % 1.3 % (0.0-2.0); EOSINOPHILS % 0.7 % (0.0-5.0); HEMATOCRIT. 30.3 % (36.0-48.0); HEMOGLOBIN. 9.5 g/dL (12.0-16.0); LYMPHOCYTES % 17.6 % (20.0-50.0); MEAN CORPUSCULAR HEMOGLOBIN 29.5 pg (28.0-32.0); MEAN CORPUSCULAR VOLUME 94.5 fL (81.0-99.0); MEAN PLATELET VOLUME 9.9 fl (7.4-10.4); MONOCYTES % 7.5 % (2.0-8.0); NEUTROPHILS % 72.9 % (40.0-76.0); PLATELET 122 x1000/uL (130-400); RED BLOOD CELL COUNT 3.21 mill/uL (4.2-5.4); RED CELL DISTRIBUTION WIDTH 20.4 % (11.6-14.6)
[2018-12-06] MEDS: MEGESTROL ACETATE 400 MG/10 ML UDC PO SCH (09:00)
[2018-12-06] MEDS: LACTULOSE 20G/30ML UDC PO SCH (09:00)
[2018-12-06] MEDS: SEVELAMER CARBONATE 800 MG TABLET PO SCH (09:02)
[2018-12-06] MEDS: BENAZEPRIL 5MG TABLET PO SCH ×2 (09:03→22:43)
[2018-12-06] MEDS: CARVEDILOL 12.5MG TABLET PO SCH ×2 (09:04→22:43)
[2018-12-06] MEDS: LOSARTAN POTASSIUM 25 MG TABLET PO SCH (09:04)
[2018-12-06] MEDS: DIPHENHYDRAMINE 50MG/ML VIAL IV PRN ×2 (09:23→22:44)
[2018-12-06 12:00] VITALS: BP 126/76
[2018-12-06 16:00] VITALS: BP 117/63
[2018-12-06] MEDS: SUCRALFATE 1 G/10 ML UDC PO SCH ×2 (17:20→22:44)
[2018-12-06] MEDS: IRON SUCROSE COMPLEX 100 MG/5 ML ML IV SCH (17:21)
[2018-12-06 22:38] VITALS: BP 127/74
[2018-12-07 04:00] VITALS: BP 119/78
[2018-12-07] MEDS: HYDROMORPHONE HCL/PF 2MG/ML CPJ IV PRN ×4 (05:31→20:25)
[2018-12-07 08:00] VITALS: BP 120/80
[2018-12-07] MEDS: SEVELAMER CARBONATE 800 MG TABLET PO SCH (09:44)
[2018-12-07] MEDS: DIPHENHYDRAMINE 50MG/ML VIAL IV PRN ×2 (09:44→21:04)
[2018-12-07] MEDS: SUCRALFATE 1 G/10 ML UDC PO SCH ×4 (09:45→20:24)
[2018-12-07] MEDS: ONDANSETRON HCL 4MG/2ML INJ IV PRN ×2 (09:48→20:30)
[2018-12-07] MEDS ORDERED: LIDOCAINE/PRILOCAINE CREAM 5 GM TUBE TOP SCH (13:00)
[2018-12-07] MEDS: LACTULOSE 20G/30ML UDC PO SCH (16:29)
[2018-12-07] MEDS: MEGESTROL ACETATE 400 MG/10 ML UDC PO SCH (16:29)
[2018-12-07] MEDS: BENAZEPRIL 5MG TABLET PO SCH ×2 (16:29→20:24)
[2018-12-07] MEDS: CARVEDILOL 12.5MG TABLET PO SCH ×2 (16:29→20:25)
[2018-12-07] MEDS: LOSARTAN POTASSIUM 25 MG TABLET PO SCH (16:29)
[2018-12-07] MEDS: IRON SUCROSE COMPLEX 100 MG/5 ML ML IV SCH (16:38)
[2018-12-07 20:00] VITALS: BP 112/74
[2018-12-07] MEDS: TRAZODONE HCL 50MG TABLET PO SCH (20:24)
[2018-12-08] VITALS: BP 112/73
[2018-12-08] MEDS: HYDROMORPHONE HCL/PF 2MG/ML CPJ IV PRN ×4 (00:25→20:00)
[2018-12-08] MEDS: ONDANSETRON HCL 4MG/2ML INJ IV PRN ×2 (03:26→21:55)
[2018-12-08 04:00] VITALS: BP 107/66
[2018-12-08] MEDS: DIPHENHYDRAMINE 50MG/ML VIAL IV PRN ×2 (05:10→17:26)
[2018-12-08] MEDS: SUCRALFATE 1 G/10 ML UDC PO SCH ×5 (07:40→21:42)
[2018-12-08 08:00] VITALS: BP 104/76
[2018-12-08] MEDS: CARVEDILOL 12.5MG TABLET PO SCH ×2 (09:00→21:42)
[2018-12-08] MEDS: BENAZEPRIL 5MG TABLET PO SCH ×2 (09:00→21:00)
[2018-12-08] MEDS: LOSARTAN POTASSIUM 25 MG TABLET PO SCH (09:00)
[2018-12-08] MEDS: MEGESTROL ACETATE 400 MG/10 ML UDC PO SCH (09:56)
[2018-12-08] MEDS: LACTULOSE 20G/30ML UDC PO SCH (09:56)
[2018-12-08] MEDS: SEVELAMER CARBONATE 800 MG TABLET PO SCH (09:56)
[2018-12-08] MEDS: HYDROCODONE/ACETAMINOPHEN 10/325MG TABLET PO PRN (09:57)
[2018-12-08 12:00] VITALS: BP 130/64
[2018-12-08 16:00] VITALS: BP 108/86
[2018-12-08 20:00] VITALS: BP 107/67
[2018-12-08] MEDS: TRAZODONE HCL 50MG TABLET PO SCH (21:43)
[2018-12-09] MEDS: HYDROMORPHONE HCL/PF 2MG/ML CPJ IV PRN ×4 (00:41→21:09)
[2018-12-09] MEDS: DIPHENHYDRAMINE 50MG/ML VIAL IV PRN ×2 (02:16→11:17)
[2018-12-09 04:00] VITALS: BP 133/58
[2018-12-09] MEDS: ONDANSETRON HCL 4MG/2ML INJ IV PRN ×2 (05:02→21:14)
[2018-12-09 08:00] VITALS: BP 115/75
[2018-12-09] MEDS: CARVEDILOL 12.5MG TABLET PO SCH ×2 (08:03→21:09)
[2018-12-09] MEDS: MEGESTROL ACETATE 400 MG/10 ML UDC PO SCH (08:03)
[2018-12-09] MEDS: SEVELAMER CARBONATE 800 MG TABLET PO SCH (08:03)
[2018-12-09] MEDS: SUCRALFATE 1 G/10 ML UDC PO SCH ×4 (08:03→21:08)
[2018-12-09] MEDS: BENAZEPRIL 5MG TABLET PO SCH (08:04)
[2018-12-09] MEDS: LACTULOSE 20G/30ML UDC PO SCH (08:04)
[2018-12-09] MEDS: LOSARTAN POTASSIUM 25 MG TABLET PO SCH (08:04)
[2018-12-09 12:00] VITALS: BP 106/73
[2018-12-09 16:00] VITALS: BP 121/91
[2018-12-09 20:00] VITALS: BP 127/86
[2018-12-09] MEDS: TRAZODONE HCL 50MG TABLET PO SCH (21:08)
[2018-12-10] VITALS: BP 118/83
[2018-12-10] MEDS: HYDROMORPHONE HCL/PF 2MG/ML CPJ IV PRN ×3 (05:38→15:32)
[2018-12-10 08:00] VITALS: BP 115/84
[2018-12-10] MEDS: SUCRALFATE 1 G/10 ML UDC PO SCH ×2 (08:11→12:40)
[2018-12-10] MEDS: HYDROCODONE/ACETAMINOPHEN 10/325MG TABLET PO PRN (08:11)
[2018-12-10] MEDS: CARVEDILOL 12.5MG TABLET PO SCH (08:27)
[2018-12-10] MEDS: LACTULOSE 20G/30ML UDC PO SCH (08:27)
[2018-12-10] MEDS: SEVELAMER CARBONATE 800 MG TABLET PO SCH (08:28)
[2018-12-10] MEDS: LOSARTAN POTASSIUM 25 MG TABLET PO SCH (08:28)
[2018-12-10 12:00] VITALS: BP 112/79
[2018-12-10] MEDS: DIPHENHYDRAMINE 50MG/ML VIAL IV PRN (12:06)
[2018-12-10 16:08] VITALS: BP 114/67
[2018-12-10] MEDS: ONDANSETRON HCL 4MG/2ML INJ IV PRN (16:30)
== END 2018-12-10 17:26 | disposition home or self-care (01) | DRG 194 ==
LOC: ER 23:37 → 7WST 12-05 06:08 → EDBEDREQTM 12-05 06:13 → ENRESERV 12-05 07:19
PROVIDERS: ADMIT Internal Medicine; ATTEND Internal Medicine
PROC: 02HV33Z Insertion of Infusion Device into Superior Vena Cava, Percutaneous Approach (ICD-10-PCS; principal; 2018-12-05)
PROC: B5181ZA Fluoroscopy of Superior Vena Cava using Low Osmolar Contrast, Guidance (ICD-10-PCS; 2018-12-05)
PROC: B548ZZA Ultrasonography of Superior Vena Cava, Guidance (ICD-10-PCS; 2018-12-05)
PROC: 5A1D70Z Performance of Urinary Filtration, Intermittent, Less than 6 Hours Per Day (ICD-10-PCS; 2018-12-06)
PROC: 5A1D70Z Performance of Urinary Filtration, Intermittent, Less than 6 Hours Per Day (ICD-10-PCS; 2018-12-08)
DX: I13.2 Hypertensive heart and chronic kidney disease with heart failure and with stage 5 chronic kidney disease, or end stage renal disease (principal); K85.90 Acute pancreatitis without necrosis or infection, unspecified; E11.22 Type 2 diabetes mellitus with diabetic chronic kidney disease; N18.6 End stage renal disease; E44.0 Moderate protein-calorie malnutrition; I42.9 Cardiomyopathy, unspecified; E87.5 Hyperkalemia; I36.1 Nonrheumatic tricuspid (valve) insufficiency; I50.23 Acute on chronic systolic (congestive) heart failure; B19.20 Unspecified viral hepatitis C without hepatic coma; K74.60 Unspecified cirrhosis of liver; D64.9 Anemia, unspecified; F99 Mental disorder, not otherwise specified; Z60.2 Problems related to living alone; R74.0 Nonspecific elevation of levels of transaminase and lactic acid dehydrogenase [LDH]; F32.9 Major depressive disorder, single episode, unspecified; Z59.0 Homelessness; Z99.2 Dependence on renal dialysis; Z91.19 Patient's noncompliance with other medical treatment and regimen; Z98.891 History of uterine scar from previous surgery; Z88.0 Allergy status to penicillin; Z79.899 Other long term (current) drug therapy; Z68.33 Body mass index [BMI] 33.0-33.9, adult
CPT/HCPCS: 36415; 36573; 71045; 80048; 82962; 83880; 84484; 84703; 93005; 96374; 99285; C1725; J1170; J1200; J2270; J2405; J3490; J7040

== ENCOUNTER 2018-12-20 22:03 | Inpatient (IN) | payer MEDICAID ==
[~2018-12-20] VITALS: Ht 167.6 cm; Wt 79.4 kg
[~2018-12-20 22:03] MED LIST changes: -COR6 PO; -MEGE400O4 PO
[2018-12-20] MEDS ORDERED: ONDANSETRON HCL 4MG/2ML INJ IV ONE (23:30)
[2018-12-20] MEDS ORDERED: MORPHINE SULFATE 4 MG/ML CPJ (NOT FOR IM USE) IV ONE (23:30)
[2018-12-21] LABS: BASOPHILS % 0.6 % (0.0-2.0); EOSINOPHILS % 1.4 % (0.0-5.0); HEMATOCRIT. 28.7 % (36.0-48.0); HEMOGLOBIN. 8.9 g/dL (12.0-16.0); LYMPHOCYTES % 15.6 % (20.0-50.0); MEAN CORPUSCULAR HEMOGLOBIN 29.9 pg (28.0-32.0); MEAN CORPUSCULAR VOLUME 96.5 fL (81.0-99.0); MEAN PLATELET VOLUME 10.3 fl (7.4-10.4); NEUTROPHILS % 76.4 % (40.0-76.0); PLATELET 138 x1000/uL (130-400); RED BLOOD CELL COUNT 2.97 mill/uL (4.2-5.4); RED CELL DISTRIBUTION WIDTH 19.5 % (11.6-14.6)
[2018-12-21 00:10] LABS: CHLORIDE 101 mEq/L (98-107)
[2018-12-21 00:26] LABS: HCG SCREEN NEGATIVE
[2018-12-21] MEDS ORDERED: FUROSEMIDE 20MG/2ML VIAL IVP ONE (00:45)
[2018-12-21 04:32] VITALS: BP 127/87
[2018-12-21] MEDS: DIPHENHYDRAMINE 25MG CAPSULE PO PRN (06:38)
[2018-12-21 08:28] VITALS: BP 106/71
[2018-12-21] MEDS ORDERED: INFLUENZA VIRUS VACCINE(AFLURIA) 0.5ML SYR IM ONE (10:00)
[2018-12-21 12:05] VITALS: BP 119/82
[2018-12-21 16:00] VITALS: BP 109/71
[2018-12-21 16:37] LABS: BASOPHILS % 0.7 % (0.0-2.0); EOSINOPHILS % 1.1 % (0.0-5.0); HEMATOCRIT. 22.8 % (36.0-48.0); HEMOGLOBIN. 7.2 g/dL (12.0-16.0); LYMPHOCYTES % 13.6 % (20.0-50.0); MEAN CORPUSCULAR HEMOGLOBIN 30.2 pg (28.0-32.0); MEAN CORPUSCULAR VOLUME 95.4 fL (81.0-99.0); MEAN PLATELET VOLUME 10.5 fl (7.4-10.4); MONOCYTES % 5.7 % (2.0-8.0); NEUTROPHILS % 78.9 % (40.0-76.0); PLATELET 124 x1000/uL (130-400); RED BLOOD CELL COUNT 2.39 mill/uL (4.2-5.4); RED CELL DISTRIBUTION WIDTH 19.3 % (11.6-14.6)
[2018-12-21 20:00] VITALS: BP 123/87
[2018-12-21] MEDS ORDERED: EPOETIN ALFA 4000UNITS/ML VIAL SUBCUT SCH (21:00)
[2018-12-21] MEDS: CARVEDILOL 6.25 MG TABLET PO SCH (21:00)
[2018-12-22] VITALS: BP 119/69
[2018-12-22] MEDS: HYDROCODONE/ACETAMINOPHEN 5/325MG TABLET PO PRN ×4 (00:08→12:51)
[2018-12-22] MEDS: DIPHENHYDRAMINE 25MG CAPSULE PO PRN ×2 (01:12→09:14)
[2018-12-22 08:00] VITALS: BP 124/82
[2018-12-22] MEDS ORDERED: IRON SUCROSE COMPLEX 100 MG/5 ML ML IV SCH (08:00)
[2018-12-22] MEDS ORDERED: BENAZEPRIL 5MG TABLET PO SCH (09:00)
[2018-12-22] MEDS: CARVEDILOL 6.25 MG TABLET PO SCH (09:13)
[2018-12-22 12:00] VITALS: BP 111/81
== END 2018-12-22 14:10 | disposition left against medical advice (07) | DRG 425 ==
LOC: ER 23:42 → EDBEDREQDT 12-21 01:15 → EDBEDREQTM 12-21 01:15 → EDBEDREQ 12-21 01:15 → ENRESERV 12-21 03:26 → 6WST 12-21 04:04
PROVIDERS: ADMIT Internal Medicine; ATTEND Internal Medicine
PROC: 5A1D70Z Performance of Urinary Filtration, Intermittent, Less than 6 Hours Per Day (ICD-10-PCS; principal; 2018-12-21)
DX: E87.70 Fluid overload, unspecified (principal); I13.2 Hypertensive heart and chronic kidney disease with heart failure and with stage 5 chronic kidney disease, or end stage renal disease; I31.3 Pericardial effusion (noninflammatory); N18.6 End stage renal disease; I42.9 Cardiomyopathy, unspecified; E46 Unspecified protein-calorie malnutrition; R18.8 Other ascites; N28.1 Cyst of kidney, acquired; D63.8 Anemia in other chronic diseases classified elsewhere; E04.2 Nontoxic multinodular goiter; I50.22 Chronic systolic (congestive) heart failure; Z59.0 Homelessness; Z90.710 Acquired absence of both cervix and uterus; Z91.15 Patient's noncompliance with renal dialysis; Z88.0 Allergy status to penicillin; Z98.891 History of uterine scar from previous surgery; Z99.2 Dependence on renal dialysis
CPT/HCPCS: 36415; 71045; 74176; 80048; 82962; 83880; 84484; 84703; 90686; 93005; 93970; 96374; 99291; J0885; J1940; J2270; J2405; Q0163

== ENCOUNTER 2019-02-12 12:19 | Emergency (ER) | payer MEDICAID | END 2019-02-12 14:18 | disposition left against medical advice (07) | LOC: ER 12:19 | DX: Z53.21 Procedure and treatment not carried out due to patient leaving prior to being seen by health care provider (principal); Z88.0 Allergy status to penicillin ==